=== PATIENT | male | born 1965 | race African-American/Black ===

== ENCOUNTER 2019-08-19 12:39 | Inpatient (IN) | payer OTHER ==
--- NOTE | 2019-08-19 13:19 | BHS.RME ---
Substance Use & Tx History - Substance Use History Alcohol Substance amount: 10-12 beers Frequency of use: Daily Substance route: Oral Date of Last Use: 08/19/19 Cocaine (Powder) Substance amount: 1-2 gram Frequency of use: Daily Substance route: Inhalation (ex: sniffing or snorting) Date of Last Use: 08/18/19 Physical/Psych/Mental Status - Behavior General Behavior: Increased activity (restlessness, agitation) Eye Contact: Normal - Cooperativeness Cooperativeness: Cooperative - Thinking Thought Processes: Tight, Logical, Goal Directed Thought content: Future oriented - Physical Health Problems Is patient presently having any pain?: No Does patient presently have any injuries (include location): No Does patient currently have a fever: No Is patient : No CIWA Nausea/Vomitin-No Nausea/No Vomiting Muscle Tremors: 1-None Visible, but [place] Anxiety: 3 Agitation: 3 Paroxysmal Sweats: 1-Minimal Palms Moist Orientation: 0-Oriented Tacttile Disturbances: 0-None Auditory Disturbances: 0-None Visual Disturbances: 0-None Headache: 2-Mild (drank earlier prior to coming in one nip not yet in full withdrawals) CIWA-Ar Total Score: 10
--- NOTE | 2019-08-19 14:40 | HP ---
CIWA Score Nausea/Vomitin-No Nausea/No Vomiting Muscle Tremors: 1-None Visible, but [place] Anxiety: 3 Agitation: 3 Paroxysmal Sweats: 1-Minimal Palms Moist Orientation: 0-Oriented Tacttile Disturbances: 0-None Auditory Disturbances: 0-None Visual Disturbances: 0-None Headache: 2-Mild (drank earlier prior to coming in one nip not yet in full withdrawals) CIWA-Ar Total Score: 10 - Admission Criteria [facility]ASAS Guidelines: Admission for Medically Managed Detox: Requires at least one of the followin. CIWA greater than 12 2. Seizures within the past 24 hours 3. Delirium tremens within the past 24 hours 4. Hallucinations within the past 24 hours 5. Acute intervention needed for co occurring medical disorder 6. Acute intervention needed for co occurring psychiatric disorder 7. Severe withdrawal that cannot be handled at a lower level of care (continued vomiting, continued diarrhea, abnormal vital signs) requiring intravenous medication and/or fluids 8. Admitting History and Physical - Admission Chief Complaint: Mr. Kenny presents to [facility] requesting admission to detox from alcohol and cocaine use. History of Present Illness: Mr. Kenny presents to [facility] requesting admission to detox from alcohol and cocaine use. This is his first time at [facility]. He was last in detox at [facility]. He was then abstinent for 2 mos and relapsed. PMH: low calcium, HLD. PSH: none Psych: biplar, depression, on seroquel SOC: lives in [place], has support and family wants him to go to [facility] Legal:none pending Substance use history Alcohol: 10-12 beers of 24 ounce each day, Began at the age of 89y. Last drink: a nip today. No hx of seiuzre. Has had a blackout x2, last was one month ago. 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 last use yesterday. History Source: Patient Limitations to Obtaining History: No Limitations Admission ROS [facility] - HPI Exam Limitations: No Limitations - Ebola screening Have you traveled outside of the country in the last 21 days: No Have you had contact with anyone from an Ebola affected area: No Have you been sick,other than usual withdrawal symptoms: No Do you have a fever: No - Review of Systems Constitutional: Chills EENT: reports: No Symptoms Reported Respiratory: reports: No Symptoms reported Cardiac: reports: No Symptoms Reported GI: reports: Nausea Musculoskeletal: reports: Joint Pain Integumentary: reports: No Symptoms Reported Neuro: reports: Headache Endocrine: reports: No Symptoms Reported Hematology: reports: No Symptoms Reported Psychiatric: reports: Depressed Patient History - Smoking Cessation Smoking history: Current every day smoker Have you smoked in the past 12 months: Yes Aproximately how many cigarettes per day: 5 Hx Chewing Tobacco Use: No Initiated information on smoking cessation: Yes 'Breaking Loose' booklet given: 08/19/19 - Substances abused Alcohol Substance route: Oral Amount used: 10-12 beers 24 ounce each Age of first use: 18 Date of last use: 08/19/19 Cocaine Substance route: Inhalation Amount used: 1-2 grams Age of first use: 40 Date of last use: 08/18/19 Admission Physical Exam [facility] Physical General Appearance: Yes: Mild Distress HEENTM: Yes: Hearing grossly Normal, Normocephalic Respiratory: Yes: Lungs Clear Neck: Yes: Within Normal Limits Breast: Yes: Breast Exam Deferred Cardiology: Yes: Regular Rate, S1, S2 Abdominal: Yes: Non Tender, Soft, Decreased BS, Protuberent Genitourinary: Yes: Other (deferred) Back: Yes: Normal Inspection Musculoskeletal: Yes: Within Normal Limits Extremities: Yes: Within Normal Limits Neurological: Yes: Alert Integumentary: Yes: Within Normal Limits - Diagnostic (1) Alcohol dependence with withdrawal, uncomplicated Current Visit: Yes Status: Acute (2) Cocaine abuse Current Visit: Yes Status: Acute (3) Nicotine dependence Current Visit: Yes Status: Acute (4) Hyperlipidemia Current Visit: Yes Status: Acute Cleared for Admission [facility] - Detox or Rehab [facility] Level of Care: Medically Managed Detox Regimen/Protocol: Librium Breathalyzer - Breathalyzer Breathalyzer: 0 Urine Drug Screen - Test Device Lot number: [id number] Expiration date: 01/31/21 - Control Is test valid?: Yes - Results Drug screen NEGATIVE: Yes Inpatient Rehab Admission - Rehab Decision to Admit Inpatient rehab admission?: No
[2019-08-19] MEDS ORDERED: MENTHOL/PHENOL 1 EACH UD MM PRN (14:44)
[2019-08-19] MEDS ORDERED: BISMUTH SUBSALICYLATE 524 MG/30 ML UD PO PRN (14:44)
[2019-08-19] MEDS ORDERED: MAGNESIUM HYDROX 2400MG/30ML ORAL SUSPENSION 30 ML CUP PO PRN (14:44)
[2019-08-19] MEDS ORDERED: NICOTINE POLACRILEX 2 MG GUM BUC PRN (14:44)
[2019-08-19] MEDS ORDERED: ONDANSETRON *ODT* 4 MG TABLET SL ONE (14:44)
[2019-08-19] MEDS ORDERED: MAG HYDROX/AL HYDROX/SIMETH 30 ML UNIT-DOSE CUP PO PRN (14:44)
[2019-08-19] MEDS ORDERED: ACETAMINOPHEN 325 MG TABLET (FP) PO PRN ×2 (14:44)
[2019-08-19] MEDS ORDERED: chlordiazePOXIDE HCL 25 MG CAPSULE PO PRN (14:44)
[2019-08-19] MEDS ORDERED: MAGNESIUM CITRATE 300 ML BOTTLE PO PRN (14:44)
[2019-08-19] MEDS ORDERED: METHOCARBAMOL 500 MG TABLET PO PRN (14:44)
[2019-08-19] MEDS ORDERED: IBUPROFEN 400 MG TABLET (FP) PO PRN (14:44)
[2019-08-19] MEDS ORDERED: VITAMINS A AND D TOPICAL OINTMENT 60 GM TUBE TP PRN (14:49)
[2019-08-19 15:18] VITALS: BMI 35.5
[2019-08-19] MEDS: NICOTINE 7 MG/24 HOURS TOPICAL PATCH TD SCH (16:38)
[2019-08-19] MEDS: chlordiazePOXIDE HCL 25 MG CAPSULE PO SCH ×2 (16:39→22:44)
--- NOTE | 2019-08-19 17:47 | CONSULT ---
[facility] Psychiatric Consult - Data Date of interview: 08/19/19 Admission source: [facility] Identifying data: First visit to [facility] and admission to [address] [place] [address] for this 54 y/o AA male self-referred for detoxification treatment. LUCERO issues : alcohol + nicotine + cocaine. Patient is single, a father of one (daughter), domiciled (lives with his biological mother), unemployed and supported on SSI benefits. Substance Abuse History: Discussed with the patient in this interview. LUCERO profile as follows : Smoking history: Current every day smoker. Have you smoked in the past 12 months: Yes. Aproximately how many cigarettes per day: 5. Hx Chewing Tobacco Use: No. Initiated information on smoking cessation: Yes. 'Breaking Loose' booklet given: 08/19/19. - Substances abused. Alcohol. Substance route: Oral. Amount used: 10-12 beers 24 ounce each. Age of first use: 18. Date of last use: 08/19/19. Cocaine. Substance route: Inhalation. Amount used: 1-2 grams. Age of first use: 40. Date of last use: 08/18/19 Medical History: Medical history is remarkable for obesity and dyslipidemia. Psychiatric History: Patient endorses a history of multiple psychiatric hospitalizations ([facility], [facility], [facility], [facility]). Most recent hospitalization ([facility]) occurred 2-3 months ago, as per self-r eport. Mr Kenny has reportedly been diagnosed with Bipolar Disorder. He sees a psychiatrist for medication management at the [facility] in [place], [place]. Patient indicates current maintenance with seroquel 200 mg/am + 400 mg/hs (confirmed by pharmacist at [facility], contacted by this chart writer, at [phone] : refills were picked up on 08/17/19). History of a suicide attempt via deliberately throwing self down a flight of stairs (2013). Physical/Sexual Abuse/Trauma History: Patient denies history of abuse. Additional Comment: Negative toxicology. Mental Status Exam - Mental Status Exam Alert and Oriented to: Time, Place, Person Cognitive Function: Good Patient Appearance: Well Groomed (obese) Mood: Withdrawn, Anxious, Hopeful Affect: Appropriate, Normal Range Patient Behavior: Fatigued, Appropriate, Cooperative Speech Pattern: Clear, Appropriate Voice Loudness: Normal Thought Process: Intact, Goal Oriented Thought Disorder: Not Present Hallucinations: Denies Suicidal Ideation: Denies Homicidal Ideation: Denies Insight/Judgement: Fair Sleep: Poorly, Difficulty falling asleep Appetite: Good Gait/Station: Normal Psychiatric Findings - Problem List ([place] 1, 2,3) (1) Alcohol dependence with withdrawal, uncomplicated Current Visit: Yes Status: Acute (2) Cocaine abuse Current Visit: Yes Status: Chronic (3) Nicotine dependence Current Visit: Yes Status: Chronic (4) Substance induced mood disorder Current Visit: Yes Status: Chronic (5) History of bipolar disorder Current Visit: Yes Status: Chronic Comment: As per self-report. On medications + follow-up at [facility] in [place], [place]. (6) Insomnia Current Visit: Yes Status: Chronic - Initial Treatment Plan Initial Treatment Plan: Psychoeducation. Sleep hygiene. Detoxification in progress. AA meetings. Groups. Patient is felt to be a good and reliable historian. He indicates that he has missed his morning dose of seroquel 200 mg (leaving home hastily for [facility]) and he insists on resuming his bedtime dose of 400 mg (verified with pharmacist at [facility]. See Psychiatric History section for details). Support. Side effects/benefits of seroquel are discussed with patient. " I have been on seroquel for many years." Seroquel 400 mg po hs. Ordered. Morning dose, 200 mg/daily, is temporarily held until observation in AM (to be resumed, at the discretion of covering psychiatrist, if no sedation/hypotension or unsteady gait). Mr Kenny is in agreement with this plan of care. Gave his consent (verbal) to this client relationship consultant. Observation.
[2019-08-19] MEDS: hydrOXYzine PAMOATE 25 MG CAPSULE (FP) PO SCH ×2 (17:50→22:43)
[2019-08-19 18:09] LABS: HEMATOCRIT 42.3 % (35.4-49); HEMOGLOBIN 13.9 GM/dL (11.7-16.9); MCH 26.9 pg (25.7-33.7); MCHC 32.8 g/dl (32.0-35.9); MEAN CELL VOLUME 81.9 fl (80-96); MEAN PLT VOLUME 9.8 fl (7.5-11.1); PLATELET COUNT 199 K/MM3 (134-434); RBC 5.17 M/mm3 (4.00-5.60); RDW 14.8 % (11.9-15.9); WHITE BLOOD COUNT 7.2 K/mm3 (4.0-10.0)
[2019-08-19 18:21] LABS: ALBUMIN 3.8 g/dl (3.4-5.0); BILIRUBIN,TOTAL 0.2 mg/dL (0.2-1); BLOOD UREA NITROGEN 13.7 mg/dL (7-18); CREATININE 1.2 mg/dL (0.55-1.3); POTASSIUM 3.8 mmol/L (3.5-5.1); TOT PROT 7.6 g/dl (6.4-8.2)
[2019-08-19] MEDS: MELATONIN 5 MG TABLETS PO SCH (22:43)
[2019-08-19] MEDS: QUEtiapine FUMARATE 400 MG TABLET PO SCH (22:43)
[2019-08-19] MEDS: THIAMINE HCL 100 MG TABLET (FP) PO SCH (22:44)
[2019-08-20] MEDS: hydrOXYzine PAMOATE 25 MG CAPSULE (FP) PO SCH ×5 (06:43→22:21)
[2019-08-20] MEDS: chlordiazePOXIDE HCL 25 MG CAPSULE PO SCH ×4 (06:43→22:18)
--- NOTE | 2019-08-20 10:23 | EKG ---
Test Reason : Blood Pressure : / mmHG Vent. Rate : 072 BPM Atrial Rate : 072 BPM P-R Int : 228 ms QRS Dur : 090 ms QT Int : 390 ms P-R-T Axes : 073 047 056 degrees QTc Int : 427 ms SINUS RHYTHM WITH 1ST DEGREE A-V BLOCK POSSIBLE LEFT ATRIAL ENLARGEMENT SEPTAL INFARCT , AGE UNDETERMINED ABNORMAL ECG NO PREVIOUS ECGS AVAILABLE Confirmed by BENJI DURAN MD ([id number]) on 08/20/2019 10:23:01 AM Referred By: Confirmed By:BENJI DURAN MD
[2019-08-20] MEDS: PRENATAL VITAMINS W/ FOLIC ACID TABLET (FP) PO SCH (10:28)
[2019-08-20] MEDS: NICOTINE 7 MG/24 HOURS TOPICAL PATCH TD SCH (10:29)
--- NOTE | 2019-08-20 10:59 | PN ---
S CIWA - CIWA Score Nausea/Vomitin-No Nausea/No Vomiting Muscle Tremors: 2 Anxiety: 2 Agitation: 2 Paroxysmal Sweats: 2 Orientation: 0-Oriented Tacttile Disturbances: 0-None Auditory Disturbances: 0-None Visual Disturbances: 0-None Headache: 0-None Present CIWA-Ar Total Score: 8 BHS Progress Note (SOAP) Subjective: sweats irritable agitation I need my morning seroquel Objective: 08/20/19 10:56 Vital Signs Temperature 97.1 F L 08/19/19 15:13 Pulse Rate 104 H 08/20/19 09:13 Respiratory Rate 18 08/20/19 09:13 Blood Pressure 121/78 08/20/19 09:13 O2 Sat by Pulse Oximetry (%) 98 08/19/19 08:29 Laboratory Tests 08/19/19 08/19/19 15:20 15:20 WBC 7.2 RBC 5.17 Hgb 13.9 Hct 42.3 MCV 81.9 MCH 26.9 MCHC 32.8 RDW 14.8 Plt Count 199 MPV 9.8 Sodium 141 Potassium 3.8 Chloride 106 Carbon Dioxide 29 Anion Gap 7 L BUN 13.7 Creatinine 1.2 Est GFR (CKD-EPI)AfAm 78.98 Est GFR (CKD-EPI)NonAf 68.14 Random Glucose 92 Calcium 9.0 Total Bilirubin 0.2 AST 12 L ALT 21 Alkaline Phosphatase 91 Total Protein 7.6 Albumin 3.8 aaox3 ambulating no acute distress Assessment: 08/20/19 10:57 withdrawals Plan: continue detox increase fluids psych ordered
--- NOTE | 2019-08-20 12:29 | PN ---
CHRIS Progress Note Note: Psychiatric nurse practitioner note: Patient seen by Dr. West on 08/18/18. Dr. West note read and appreciated. Patient is prescribed seroquel 200mg daily + 400mg HS. Morning dose was held due to risk of oversedation. Patient observed ambulating on the unit. No signs of sedation. Seroquel 200mg daily ordered.
--- NOTE | 2019-08-20 12:43 | PN ---
Psychiatric Progress Note Vital Signs: Vital Signs Period Temp Pulse Resp BP Sys/Mcmillan Pulse Ox Last 24 Hr 97.1 F 78-104 12- 121-152/78-96 Date of Session: 08/20/19 Chief Complaint:: " I didn't get my seroquel morning dose." HPI: Patient admitted to for alcohol + nicotine + cocaine. Consultation ordered due to request for seroquel morning dose. ROS: Patient is alert + oriented X3 but slightly irritable. Current Medications: Active Medications Generic Name Dose Route Start Last Admin Trade Name Freq PRN Reason Stop Dose Admin Acetaminophen 650 mg 08/19/19 14:44 Tylenol - PO Q6H PRN PAIN LEVEL 4 - 6 Acetaminophen 650 mg 08/19/19 14:44 Tylenol - PO Q6H PRN FEVER Al Hydroxide/Mg Hydroxide 30 ml 08/19/19 14:44 Mylanta Oral Suspension - PO Q6H PRN DYSPEPSIA Bismuth Subsalicylate 524 mg 08/19/19 14:44 Pepto-Bismol - PO Q1H PRN DIARRHEA Chlordiazepoxide HCl 50 mg 08/19/19 17:00 08/20/19 10:28 Librium - PO 08/20/19 23:01 50 mg [id number] GEMMA Administration Chlordiazepoxide HCl 25 mg 08/21/19 05:00 Librium - PO 08/21/19 23:01 [id number] GEMMA Chlordiazepoxide HCl 25 mg 08/19/19 14:44 Librium - PO 08/21/19 23:59 Q4H PRN WITHDRAWAL(CONT SUBST) Chlordiazepoxide HCl 10 mg 08/22/19 05:00 Librium - PO 08/22/19 23:01 [id number] GEMMA Chlordiazepoxide HCl 10 mg 08/23/19 05:00 Librium - PO 08/23/19 17:01 Q12H GEMMA Chlordiazepoxide HCl 10 mg 08/22/19 00:00 Librium - PO 08/23/19 00:00 Q4H PRN WITHDRAWAL(CONT SUBST) Chlordiazepoxide HCl 10 mg 08/24/19 05:00 Librium - PO 08/24/19 05:01 ONCE@0500 ONE Eucalyptus/Menthol/Phenol/Sorbitol 1 each 08/19/19 14:44 Cepastat Lozenge - MM 08/25/19 14:45 Q4H PRN SORE THROAT Hydroxyzine Pamoate 25 mg 08/19/19 18:00 08/20/19 10:31 Vistaril - PO 08/25/19 14:44 Not Given Q4HWA GEMMA Ibuprofen 400 mg 08/19/19 14:44 Motrin - PO Q6H PRN PAIN LEVEL 1 - 3 Magnesium Citrate 300 ml 08/19/19 14:44 Citroma - PO Q48H PRN CONSTIPATION Magnesium Hydroxide 30 ml 08/19/19 14:44 Milk Of Magnesia - PO PRN PRN CONSTIPATION Melatonin 5 mg 08/19/19 22:00 08/19/19 22:43 Melatonin PO 5 mg HS GEMMA Administration Methocarbamol 500 mg 08/19/19 14:44 Robaxin - PO 08/25/19 14:45 Q6H PRN MUSCLE SPASMS Nicotine 7 mg 08/19/19 14:45 08/20/19 10:29 Nicoderm Patch - TD Not Given DAILY GEMMA Nicotine Polacrilex 2 mg 08/19/19 14:44 Nicorette Gum - BUC Q2H PRN NICOTINE REPLACEMENT RX Multivit/Folic Acid/Iron 1 tab 08/20/19 10:00 08/20/19 10:28 Vitamins (Sjr) - PO 1 tab DAILY [facility] Administration Quetiapine Fumarate 400 mg 08/19/19 22:00 08/19/19 22:43 Seroquel - PO 400 mg HS GEMMA Administration Quetiapine Fumarate 200 mg 08/20/19 11:30 Seroquel - PO DAILY GEMMA Thiamine HCl 100 mg 08/19/19 22:00 08/19/19 22:44 Vitamin B1 - PO 100 mg HS [facility] Administration Vitamin A/Vitamin D 1 applic 08/19/19 14:49 Vitamin A & D Top Oint - TP Q6HPO PRN DRY SKIN Medication(s) Change(s): Yes. Will add Seroquel 200mg daily. Current Side Effect: No Lab tests ordered: No Provider note:: Patient seen by Dr. West on 08/18/18. Dr. West note read and appreciated. Patient is prescribed seroquel 200mg daily + 400mg HS by his outpatient psychiatrist. Morning dose was held due to risk of oversedation. Patient observed ambulating on the unit. No signs of sedation. Seroquel 200mg daily ordered. Total face to face time:: 15 Mental Status Exam - Mental Status Exam Alert and Oriented to: Time, Place, Person Cognitive Function: Good Patient Appearance: Well Groomed Mood: Irritable (irritable but in control while speaking to keno writer/runner. ) Affect: Mood Congruent Patient Behavior: Cooperative Speech Pattern: Appropriate Voice Loudness: Normal Thought Process: Intact, Goal Oriented Thought Disorder: Not Present Hallucinations: Denies Suicidal Ideation: Denies Homicidal Ideation: Denies Insight/Judgement: Poor Sleep: Fair Appetite: Fair Muscle strength/Tone: Normal Gait/Station: Normal Psychiatric Treatment Plan - Problem List (1) Alcohol dependence with withdrawal, uncomplicated Current Visit: Yes (2) Cocaine abuse Current Visit: Yes (3) History of bipolar disorder Current Visit: Yes Comment: As per self-report. On medications + follow-up at [facility] in [place], [place]. (4) Insomnia Current Visit: Yes (5) Nicotine dependence Current Visit: Yes (6) Substance induced mood disorder Current Visit: Yes
[2019-08-20] MEDS: QUEtiapine FUMARATE 100 MG TABLET (FP) PO SCH (13:35)
[2019-08-20] MEDS: QUEtiapine FUMARATE 400 MG TABLET PO SCH (22:18)
[2019-08-20] MEDS: THIAMINE HCL 100 MG TABLET (FP) PO SCH (22:18)
[2019-08-20] MEDS: MELATONIN 5 MG TABLETS PO SCH (22:18)
[2019-08-21] MEDS: hydrOXYzine PAMOATE 25 MG CAPSULE (FP) PO SCH ×5 (06:23→21:28)
[2019-08-21] MEDS: chlordiazePOXIDE HCL 25 MG CAPSULE PO SCH ×4 (06:23→22:20)
[2019-08-21] MEDS: PRENATAL VITAMINS W/ FOLIC ACID TABLET (FP) PO SCH (10:55)
[2019-08-21] MEDS: QUEtiapine FUMARATE 100 MG TABLET (FP) PO SCH (10:56)
[2019-08-21] MEDS: NICOTINE 7 MG/24 HOURS TOPICAL PATCH TD SCH (10:57)
--- NOTE | 2019-08-21 15:11 | PN ---
[facility] CIWA - CIWA Score Nausea/Vomitin-Mild Nausea/No Vomiting Muscle Tremors: 2 Anxiety: 2 Agitation: 2 Paroxysmal Sweats: No Perspiration Orientation: 0-Oriented Tacttile Disturbances: 1-Very Mild Itch/Numbness Auditory Disturbances: 0-None Visual Disturbances: 0-None Headache: 1-Very Mild CIWA-Ar Total Score: 9 S Progress Note (SOAP) Subjective: alert,irritable,anxious,interrupted sleep,tremor Objective: 08/21/19 15:10 Vital Signs Temperature 98 F 08/21/19 12:35 Pulse Rate 109 H 08/21/19 12:35 Respiratory Rate 18 08/21/19 12:35 Blood Pressure 125/67 08/21/19 12:35 O2 Sat by Pulse Oximetry (%) 96 08/21/19 12:35 08/21/19 15:10 Laboratory Last Values WBC 7.2 K/mm3 (4.0-10.0) 08/19/19 15:20 RBC 5.17 M/mm3 (4.00-5.60) 08/19/19 15:20 Hgb 13.9 GM/dL (11.7-16.9) 08/19/19 15:20 Hct 42.3 % (35.4-49) 08/19/19 15:20 MCV 81.9 fl (80-96) 08/19/19 15:20 MCH 26.9 pg (25.7-33.7) 08/19/19 15:20 MCHC 32.8 g/dl (32.0-35.9) 08/19/19 15:20 RDW 14.8 % (11.9-15.9) 08/19/19 15:20 Plt Count 199 K/MM3 (134-434) 08/19/19 15:20 MPV 9.8 fl (7.5-11.1) 08/19/19 15:20 Sodium 141 mmol/L (136-145) 08/19/19 15:20 Potassium 3.8 mmol/L (3.5-5.1) 08/19/19 15:20 Chloride 106 mmol/L (98-107) 08/19/19 15:20 Carbon Dioxide 29 mmol/L (21-32) 08/19/19 15:20 Anion Gap 7 MMOL/L (8-16) L 08/19/19 15:20 BUN 13.7 mg/dL (7-18) 08/19/19 15:20 Creatinine 1.2 mg/dL (0.55-1.3) 08/19/19 15:20 Est GFR (CKD-EPI)AfAm 78.98 08/19/19 15:20 Est GFR (CKD-EPI)NonAf 68.14 08/19/19 15:20 Random Glucose 92 mg/dL (74-106) 08/19/19 15:20 Calcium 9.0 mg/dL (8.5-10.1) 08/19/19 15:20 Total Bilirubin 0.2 mg/dL (0.2-1) 08/19/19 15:20 AST 12 U/L (15-37) L 08/19/19 15:20 ALT 21 U/L (13-61) 08/19/19 15:20 Alkaline Phosphatase 91 U/L (45-117) 08/19/19 15:20 Total Protein 7.6 g/dl (6.4-8.2) 08/19/19 15:20 Albumin 3.8 g/dl (3.4-5.0) 08/19/19 15:20 RPR Titer Nonreactive (NONREACTIVE) 08/19/19 15:20 HIV Ag/Ab Combo Qual Negative (NEGATIVE) 08/20/19 07:30 Assessment: 08/21/19 15:11 withdrawal symptom Plan: continue detox librium regimen
[2019-08-21] MEDS: THIAMINE HCL 100 MG TABLET (FP) PO SCH (21:28)
[2019-08-21] MEDS: MELATONIN 5 MG TABLETS PO SCH (21:28)
[2019-08-21] MEDS: QUEtiapine FUMARATE 400 MG TABLET PO SCH (21:28)
[2019-08-22] MEDS ORDERED: chlordiazePOXIDE HCL 10 MG CAPSULE PO PRN
[2019-08-22] MEDS: chlordiazePOXIDE HCL 10 MG CAPSULE PO SCH ×4 (05:52→22:12)
[2019-08-22] MEDS: hydrOXYzine PAMOATE 25 MG CAPSULE (FP) PO SCH ×5 (05:52→22:12)
[2019-08-22] MEDS: NICOTINE 7 MG/24 HOURS TOPICAL PATCH TD SCH (10:46)
[2019-08-22] MEDS: PRENATAL VITAMINS W/ FOLIC ACID TABLET (FP) PO SCH (10:46)
[2019-08-22] MEDS: QUEtiapine FUMARATE 100 MG TABLET (FP) PO SCH (10:47)
--- NOTE | 2019-08-22 16:53 | PN ---
S CIWA - CIWA Score Nausea/Vomitin-No Nausea/No Vomiting Muscle Tremors: 3 Anxiety: 2 Agitation: 1-Slight > Activity Paroxysmal Sweats: 3 Orientation: 2-Disoriented Date<2 days Tacttile Disturbances: 1-Very Mild Itch/Numbness Auditory Disturbances: 0-None Visual Disturbances: 0-None Headache: 2-Mild CIWA-Ar Total Score: 14 S Progress Note (SOAP) Subjective: Tremors, Diarrhea, Chills, H/A. Objective: PATIENT A & O X 2 (UNCERTAIN ABOUT CURRENT DAY/ DATE). PATIENT OBSERVED AMBULATING ON DETOX UNIT UNASSISTED. IN NO ACUTE DISTRESS. 08/22/19 16:52 Vital Signs Temperature 97.8 F 08/22/19 08:50 Pulse Rate 103 H 08/22/19 08:50 Respiratory Rate 18 08/22/19 08:50 Blood Pressure 127/91 08/22/19 08:50 O2 Sat by Pulse Oximetry (%) 97 08/22/19 05:44 Laboratory Tests 08/19/19 08/19/19 08/19/19 15:20 15:20 15:20 WBC 7.2 RBC 5.17 Hgb 13.9 Hct 42.3 MCV 81.9 MCH 26.9 MCHC 32.8 RDW 14.8 Plt Count 199 MPV 9.8 Sodium 141 Potassium 3.8 Chloride 106 Carbon Dioxide 29 Anion Gap 7 L BUN 13.7 Creatinine 1.2 Est GFR (CKD-EPI)AfAm 78.98 Est GFR (CKD-EPI)NonAf 68.14 Random Glucose 92 Calcium 9.0 Total Bilirubin 0.2 AST 12 L ALT 21 Alkaline Phosphatase 91 Total Protein 7.6 Albumin 3.8 RPR Titer Nonreactive HIV Ag/Ab Combo Qual 08/20/19 07:30 WBC RBC Hgb Hct MCV MCH MCHC RDW Plt Count MPV Sodium Potassium Chloride Carbon Dioxide Anion Gap BUN Creatinine Est GFR (CKD-EPI)AfAm Est GFR (CKD-EPI)NonAf Random Glucose Calcium Total Bilirubin AST ALT Alkaline Phosphatase Total Protein Albumin RPR Titer HIV Ag/Ab Combo Qual Negative LABS NOTED. Assessment: 08/22/19 16:53 WITHDRAWAL SYMPTOMS. Plan: CONTINUE DETOX.
[2019-08-22] MEDS: MELATONIN 5 MG TABLETS PO SCH (22:12)
[2019-08-22] MEDS: QUEtiapine FUMARATE 400 MG TABLET PO SCH (22:12)
[2019-08-22] MEDS: THIAMINE HCL 100 MG TABLET (FP) PO SCH (22:12)
[2019-08-23] MEDS: chlordiazePOXIDE HCL 10 MG CAPSULE PO SCH ×2 (06:20→17:50)
[2019-08-23] MEDS: hydrOXYzine PAMOATE 25 MG CAPSULE (FP) PO SCH ×5 (06:20→22:12)
[2019-08-23] MEDS: NICOTINE 7 MG/24 HOURS TOPICAL PATCH TD SCH (10:07)
[2019-08-23] MEDS: PRENATAL VITAMINS W/ FOLIC ACID TABLET (FP) PO SCH (10:07)
[2019-08-23] MEDS: QUEtiapine FUMARATE 100 MG TABLET (FP) PO SCH (10:07)
--- NOTE | 2019-08-23 12:09 | PN ---
[facility] CIWA - CIWA Score Nausea/Vomitin-No Nausea/No Vomiting Muscle Tremors: 2 Anxiety: 3 Agitation: 1-Slight > Activity Paroxysmal Sweats: 3 Orientation: 0-Oriented Tacttile Disturbances: 0-None Auditory Disturbances: 0-None Visual Disturbances: 0-None Headache: 1-Very Mild CIWA-Ar Total Score: 10 S Progress Note (SOAP) Subjective: c/o headache, shakes, anxiety, and sweats. Objective: 08/23/19 12:08 Vital Signs 08/23/19 08/23/19 05:10 09:18 Temperature 98 F 97.4 F L Pulse Rate 89 119 H Respiratory 20 20 Rate Blood Pressure 136/77 129/90 O2 Sat by Pulse 95 Oximetry (%) Laboratory Last Values WBC 7.2 K/mm3 (4.0-10.0) 08/19/19 15:20 RBC 5.17 M/mm3 (4.00-5.60) 08/19/19 15:20 Hgb 13.9 GM/dL (11.7-16.9) 08/19/19 15:20 Hct 42.3 % (35.4-49) 08/19/19 15:20 MCV 81.9 fl (80-96) 08/19/19 15:20 MCH 26.9 pg (25.7-33.7) 08/19/19 15:20 MCHC 32.8 g/dl (32.0-35.9) 08/19/19 15:20 RDW 14.8 % (11.9-15.9) 08/19/19 15:20 Plt Count 199 K/MM3 (134-434) 08/19/19 15:20 MPV 9.8 fl (7.5-11.1) 08/19/19 15:20 Sodium 141 mmol/L (136-145) 08/19/19 15:20 Potassium 3.8 mmol/L (3.5-5.1) 08/19/19 15:20 Chloride 106 mmol/L (98-107) 08/19/19 15:20 Carbon Dioxide 29 mmol/L (21-32) 08/19/19 15:20 Anion Gap 7 MMOL/L (8-16) L 08/19/19 15:20 BUN 13.7 mg/dL (7-18) 08/19/19 15:20 Creatinine 1.2 mg/dL (0.55-1.3) 08/19/19 15:20 Est GFR (CKD-EPI)AfAm 78.98 08/19/19 15:20 Est GFR (CKD-EPI)NonAf 68.14 08/19/19 15:20 Random Glucose 92 mg/dL (74-106) 08/19/19 15:20 Calcium 9.0 mg/dL (8.5-10.1) 08/19/19 15:20 Total Bilirubin 0.2 mg/dL (0.2-1) 08/19/19 15:20 AST 12 U/L (15-37) L 08/19/19 15:20 ALT 21 U/L (13-61) 08/19/19 15:20 Alkaline Phosphatase 91 U/L (45-117) 08/19/19 15:20 Total Protein 7.6 g/dl (6.4-8.2) 08/19/19 15:20 Albumin 3.8 g/dl (3.4-5.0) 08/19/19 15:20 RPR Titer Nonreactive (NONREACTIVE) 08/19/19 15:20 HIV Ag/Ab Combo Qual Negative (NEGATIVE) 08/20/19 07:30 Labs noted. Assessment: 08/23/19 12:08 AOX3, in no acute respiratory distress. Full ROM, ambulating in the unit. Withdrawal symptoms. Plan: continue detox.
[2019-08-23] MEDS: THIAMINE HCL 100 MG TABLET (FP) PO SCH (22:12)
[2019-08-23] MEDS: MELATONIN 5 MG TABLETS PO SCH (22:12)
[2019-08-23] MEDS: QUEtiapine FUMARATE 400 MG TABLET PO SCH (22:12)
[2019-08-24] MEDS ORDERED: chlordiazePOXIDE HCL 10 MG CAPSULE PO ONE (05:00)
[2019-08-24] MEDS: hydrOXYzine PAMOATE 25 MG CAPSULE (FP) PO SCH ×2 (05:17→10:18)
--- NOTE | 2019-08-24 08:51 | DS ---
[facility] Detox Discharge Summary Admission Date: 08/19/19 Discharge Date: 08/24/19 - History Present History: Alcohol Dependence, Cocaine Dependence - Physical Exam Results Vital Signs: Vital Signs Temperature 97.7 F 08/24/19 06:07 Pulse Rate 102 H 08/24/19 06:07 Respiratory Rate 08/24/19 06:07 Blood Pressure 145/87 08/24/19 06:07 O2 Sat by Pulse Oximetry (%) 96 08/24/19 06:07 Pertinent Admission Physical Exam Findings: Vital Signs Temperature 97.7 F 08/24/19 06:07 Pulse Rate 102 H 08/24/19 06:07 Respiratory Rate 08/24/19 06:07 Blood Pressure 145/87 08/24/19 06:07 O2 Sat by Pulse Oximetry (%) 96 08/24/19 06:07 Laboratory Tests 08/19/19 08/19/19 08/19/19 15:20 15:20 15:20 WBC 7.2 RBC 5.17 Hgb 13.9 Hct 42.3 MCV 81.9 MCH 26.9 MCHC 32.8 RDW 14.8 Plt Count 199 MPV 9.8 Sodium 141 Potassium 3.8 Chloride 106 Carbon Dioxide 29 Anion Gap 7 L BUN 13.7 Creatinine 1.2 Est GFR (CKD-EPI)AfAm 78.98 Est GFR (CKD-EPI)NonAf 68.14 Random Glucose 92 Calcium 9.0 Total Bilirubin 0.2 AST 12 L ALT 21 Alkaline Phosphatase 91 Total Protein 7.6 Albumin 3.8 RPR Titer Nonreactive HIV Ag/Ab Combo Qual 08/20/19 07:30 WBC RBC Hgb Hct MCV MCH MCHC RDW Plt Count MPV Sodium Potassium Chloride Carbon Dioxide Anion Gap BUN Creatinine Est GFR (CKD-EPI)AfAm Est GFR (CKD-EPI)NonAf Random Glucose Calcium Total Bilirubin AST ALT Alkaline Phosphatase Total Protein Albumin RPR Titer HIV Ag/Ab Combo Qual Negative aaox3 ambulating no acute distress - Treatment Hospital Course: Detox Protocol Followed, Detoxed Safely, Responded well, Discharged Condition Good, Rehab Referral Accepted - Medication Discharge Medications: Ambulatory Orders Atorvastatin Ca [Lipitor] 10 mg PO HS 08/19/19 Cholecalciferol (Vitamin D3) [Vitamin D3] 3,000 unit PO DAILY 08/19/19 Quetiapine Fumarate [Seroquel -] 200 mg PO DAILY 08/19/19 Quetiapine Fumarate [Seroquel -] 400 mg PO HS 08/19/19 - Diagnosis (1) Alcohol dependence with withdrawal, uncomplicated Current Visit: Yes Status: Chronic (2) Hyperlipidemia Current Visit: Yes Status: Chronic Qualifiers: Hyperlipidemia type: unspecified Qualified Code(s): E78.5 - Hyperlipidemia, unspecified (3) Cocaine abuse Current Visit: Yes Status: Chronic (4) History of bipolar disorder Current Visit: Yes Status: Chronic (5) Insomnia Current Visit: Yes Status: Chronic (6) Nicotine dependence Current Visit: Yes Status: Chronic Qualifiers: Nicotine product type: cigarettes Substance use status: uncomplicated Qualified Code(s): F17.210 - Nicotine dependence, cigarettes, uncomplicated (7) Substance induced mood disorder Current Visit: Yes Status: Chronic - AMA Did Patient Leave Against Medical Advice: No
[2019-08-24] MEDS: PRENATAL VITAMINS W/ FOLIC ACID TABLET (FP) PO SCH (10:18)
[2019-08-24] MEDS: NICOTINE 7 MG/24 HOURS TOPICAL PATCH TD SCH (10:18)
[2019-08-24] MEDS: QUEtiapine FUMARATE 100 MG TABLET (FP) PO SCH (10:18)
[2019-08-24 10:28] VITALS: BP 141/82; PULSE 104; TEMP 98.2
== END 2019-08-24 13:15 | disposition home or self-care (01) | DRG 774 ==
LOC: YASAS 12:39 → Y6N 15:40
PROVIDERS: ADMIT Allergy & Immunology; ATTEND Allergy & Immunology
PROC: HZ2ZZZZ Detoxification Services for Substance Abuse Treatment (ICD-10-PCS; principal; 2019-08-19)
DX: F10.230 Alcohol dependence with withdrawal, uncomplicated (principal); F14.20 Cocaine dependence, uncomplicated; F17.210 Nicotine dependence, cigarettes, uncomplicated; F19.24 Other psychoactive substance dependence with psychoactive substance-induced mood disorder; F31.9 Bipolar disorder, unspecified; E78.5 Hyperlipidemia, unspecified; G47.00 Insomnia, unspecified; E66.9 Obesity, unspecified; Z68.35 Body mass index [BMI] 35.0-35.9, adult; Z56.0 Unemployment, unspecified; Z91.5 Personal history of self-harm
CPT/HCPCS: 36415; 80053; 85027; 86593; 87389; 93005; 93010; Q0162

== ENCOUNTER 2020-07-11 09:06 | Inpatient (IN) | payer OTHER ==
[2020-07-11 09:40] VITALS: BMI 35.5
[2020-07-11] MEDS ORDERED: MENTHOL/PHENOL 1 EACH UD MM PRN (10:08)
[2020-07-11] MEDS ORDERED: ACETAMINOPHEN 325 MG TABLET (FP) PO PRN ×2 (10:08)
[2020-07-11] MEDS ORDERED: MAG HYDROX/AL HYDROX/SIMETH 30 ML UNIT-DOSE CUP PO PRN (10:08)
[2020-07-11] MEDS ORDERED: METHOCARBAMOL 500 MG TABLET PO PRN (10:08)
[2020-07-11] MEDS ORDERED: NICOTINE POLACRILEX 2 MG GUM BUC PRN (10:08)
[2020-07-11] MEDS ORDERED: IBUPROFEN 400 MG TABLET (FP) PO PRN (10:08)
[2020-07-11] MEDS ORDERED: chlordiazePOXIDE HCL 25 MG CAPSULE PO PRN (10:08)
[2020-07-11] MEDS ORDERED: MAGNESIUM CITRATE 300 ML BOTTLE PO PRN (10:08)
[2020-07-11] MEDS ORDERED: MAGNESIUM HYDROX 2400MG/30ML ORAL SUSPENSION 30 ML CUP PO PRN (10:08)
[2020-07-11] MEDS ORDERED: ONDANSETRON *ODT* 4 MG TABLET SL PRN (10:08)
[2020-07-11] MEDS: PRENATAL VITAMINS W/ FOLIC ACID TABLET (FP) PO SCH (10:48)
[2020-07-11] MEDS: chlordiazePOXIDE HCL 25 MG CAPSULE PO SCH ×3 (10:48→23:00)
[2020-07-11 15:56] LABS: POTASSIUM 4.1 mmol/L (3.5-5.1)
[2020-07-11 15:58] LABS: CALCIUM 9.7 mg/dL (8.5-10.1)
[2020-07-11 15:59] LABS: ALBUMIN 4.4 g/dl (3.4-5.0); BLOOD UREA NITROGEN 9.7 mg/dL (7-18)
[2020-07-11 16:02] LABS: CREATININE 1.2 mg/dL (0.55-1.3)
[2020-07-11 16:04] LABS: BILIRUBIN,TOTAL 0.4 mg/dL (0.2-1); TOT PROT 8.8 g/dl (6.4-8.2)
[2020-07-11 16:08] LABS: HEMATOCRIT 44.9 % (35.4-49); MCH 27.5 pg (25.7-33.7); MCHC 33.4 g/dl (32.0-35.9); MEAN CELL VOLUME 82.3 fl (80-96); MEAN PLT VOLUME 9.6 fl (7.5-11.1); PLATELET COUNT 236 K/MM3 (134-434); RBC 5.45 M/mm3 (4.00-5.60); RDW 15.2 % (11.9-15.9); WHITE BLOOD COUNT 8.5 K/mm3 (4.0-10.0)
[2020-07-11 16:54] LABS: HIV INTERPRETATION NEGATIVE (NEGATIVE)
[2020-07-11] MEDS: THIAMINE HCL 100 MG TABLET (FP) PO SCH (23:01)
[2020-07-11] MEDS: QUEtiapine FUMARATE 400 MG TABLET PO SCH (23:01)
[2020-07-11] MEDS: MELATONIN 5 MG TABLETS PO SCH (23:01)
[2020-07-11] MEDS: ATORVASTATIN CA 10 MG TABLET (FP) PO SCH (23:02)
[2020-07-12] MEDS: hydrOXYzine PAMOATE 25 MG CAPSULE (FP) PO SCH ×7 (00:36→22:46)
[2020-07-12] MEDS: chlordiazePOXIDE HCL 25 MG CAPSULE PO SCH ×4 (05:51→22:23)
[2020-07-12] MEDS: PRENATAL VITAMINS W/ FOLIC ACID TABLET (FP) PO SCH (10:12)
[2020-07-12] MEDS: BISMUTH SUBSALICYLATE 524 MG/30 ML UD PO PRN (13:43)
[2020-07-12] MEDS: THIAMINE HCL 100 MG TABLET (FP) PO SCH (22:23)
[2020-07-12] MEDS: QUEtiapine FUMARATE 400 MG TABLET PO SCH (22:23)
[2020-07-12] MEDS: ATORVASTATIN CA 10 MG TABLET (FP) PO SCH (22:23)
[2020-07-12] MEDS: MELATONIN 5 MG TABLETS PO SCH (22:46)
[2020-07-13] MEDS: chlordiazePOXIDE HCL 25 MG CAPSULE PO SCH ×4 (05:39→22:50)
[2020-07-13] MEDS: hydrOXYzine PAMOATE 25 MG CAPSULE (FP) PO SCH ×6 (05:39→23:02)
[2020-07-13] MEDS: PRENATAL VITAMINS W/ FOLIC ACID TABLET (FP) PO SCH (10:13)
[2020-07-13] MEDS: BISMUTH SUBSALICYLATE 524 MG/30 ML UD PO PRN ×2 (13:10→17:56)
[2020-07-13] MEDS: THIAMINE HCL 100 MG TABLET (FP) PO SCH (22:49)
[2020-07-13] MEDS: ATORVASTATIN CA 10 MG TABLET (FP) PO SCH (22:49)
[2020-07-13] MEDS: QUEtiapine FUMARATE 400 MG TABLET PO SCH (22:49)
[2020-07-13] MEDS: MELATONIN 5 MG TABLETS PO SCH (23:02)
[2020-07-14] MEDS ORDERED: chlordiazePOXIDE HCL 10 MG CAPSULE PO PRN
[2020-07-14] MEDS: chlordiazePOXIDE HCL 10 MG CAPSULE PO SCH ×4 (05:32→22:50)
[2020-07-14] MEDS: hydrOXYzine PAMOATE 25 MG CAPSULE (FP) PO SCH ×5 (05:32→23:40)
[2020-07-14] MEDS: PRENATAL VITAMINS W/ FOLIC ACID TABLET (FP) PO SCH (10:19)
[2020-07-14] MEDS: BISMUTH SUBSALICYLATE 524 MG/30 ML UD PO PRN ×3 (10:22→18:13)
[2020-07-14] MEDS: ATORVASTATIN CA 10 MG TABLET (FP) PO SCH (22:50)
[2020-07-14] MEDS: THIAMINE HCL 100 MG TABLET (FP) PO SCH (22:50)
[2020-07-14] MEDS: QUEtiapine FUMARATE 400 MG TABLET PO SCH (22:50)
[2020-07-14] MEDS: MELATONIN 5 MG TABLETS PO SCH (23:40)
[2020-07-15] MEDS: hydrOXYzine PAMOATE 25 MG CAPSULE (FP) PO SCH ×5 (06:14→22:19)
[2020-07-15] MEDS: chlordiazePOXIDE HCL 10 MG CAPSULE PO SCH ×2 (06:15→18:28)
[2020-07-15] MEDS: BISMUTH SUBSALICYLATE 524 MG/30 ML UD PO PRN ×3 (06:17→18:29)
[2020-07-15] MEDS: PRENATAL VITAMINS W/ FOLIC ACID TABLET (FP) PO SCH (10:44)
[2020-07-15] MEDS: ATORVASTATIN CA 10 MG TABLET (FP) PO SCH (22:18)
[2020-07-15] MEDS: THIAMINE HCL 100 MG TABLET (FP) PO SCH (22:18)
[2020-07-15] MEDS: QUEtiapine FUMARATE 400 MG TABLET PO SCH (22:18)
[2020-07-15] MEDS: MELATONIN 5 MG TABLETS PO SCH (22:19)
[2020-07-16] MEDS ORDERED: chlordiazePOXIDE HCL 10 MG CAPSULE PO ONE (05:00)
[2020-07-16] MEDS: hydrOXYzine PAMOATE 25 MG CAPSULE (FP) PO SCH ×2 (05:53→10:05)
[2020-07-16] MEDS: BISMUTH SUBSALICYLATE 524 MG/30 ML UD PO PRN (07:40)
[2020-07-16 09:53] VITALS: BP 130/61; PULSE 104; TEMP 98
[2020-07-16] MEDS: PRENATAL VITAMINS W/ FOLIC ACID TABLET (FP) PO SCH (10:05)
== END 2020-07-16 12:24 | disposition home or self-care (01) | DRG 774 ==
LOC: YASAS 09:06 → Y6N 09:47
PROVIDERS: ADMIT Allergy & Immunology; ATTEND Allergy & Immunology
PROC: HZ2ZZZZ Detoxification Services for Substance Abuse Treatment (ICD-10-PCS; principal; 2020-07-11)
DX: F10.230 Alcohol dependence with withdrawal, uncomplicated (principal); F14.20 Cocaine dependence, uncomplicated; F17.210 Nicotine dependence, cigarettes, uncomplicated; F19.282 Other psychoactive substance dependence with psychoactive substance-induced sleep disorder; F31.9 Bipolar disorder, unspecified; F90.9 Attention-deficit hyperactivity disorder, unspecified type; I10 Essential (primary) hypertension; E78.5 Hyperlipidemia, unspecified; L98.8 Other specified disorders of the skin and subcutaneous tissue
CPT/HCPCS: 36415; 80053; 85027; 86780; 87389; C9803; U0003

== ENCOUNTER 2020-10-03 11:54 | Inpatient (IN) | payer OTHER ==
[2020-10-03 14:41] VITALS: BMI 33.9
[2020-10-03] MEDS ORDERED: NICOTINE POLACRILEX 2 MG GUM BC PRN (20:38)
[2020-10-03] MEDS ORDERED: MAGNESIUM HYDROX 2400MG/30ML ORAL SUSPENSION 30 ML CUP PO PRN (20:38)
[2020-10-03] MEDS ORDERED: LOPERAMIDE HCL 2 MG CAPSULE PO PRN (20:38)
[2020-10-03] MEDS ORDERED: guaiFENesin 200 MG/10 ML 10 ML UNIT-DOSE CUPS PO PRN (20:38)
[2020-10-03] MEDS ORDERED: P-EPHED 60MG/TRIPROLIDI 2.5MG TABLET PO PRN (20:38)
[2020-10-03] MEDS ORDERED: ACETAMINOPHEN 325 MG TABLET (FP) PO PRN (20:38)
[2020-10-03] MEDS ORDERED: MAGNESIUM CITRATE 300 ML BOTTLE PO PRN (20:38)
[2020-10-03] MEDS ORDERED: MAG HYDROX/AL HYDROX/SIMETH 30 ML UNIT-DOSE CUP PO PRN (20:38)
[2020-10-03] MEDS ORDERED: QUEtiapine FUMARATE 400 MG TABLET PO SCH (22:00)
[2020-10-03] MEDS: GABAPENTIN 300 MG CAPSULE PO SCH (22:29)
[2020-10-03] MEDS: hydrOXYzine PAMOATE 25 MG CAPSULE (FP) PO SCH (22:29)
[2020-10-03] MEDS: THIAMINE HCL 100 MG TABLET (FP) PO SCH (22:29)
[2020-10-03] MEDS: QUEtiapine FUMARATE 200 MG TABLET PO SCH (22:29)
[2020-10-03] MEDS: MELATONIN 5 MG TABLETS PO SCH (22:29)
[2020-10-03] MEDS ORDERED: TUBERCULIN PPD 5 TU/0.1ML VIAL ID ONE (22:32)
[2020-10-04] MEDS: hydrOXYzine PAMOATE 25 MG CAPSULE (FP) PO SCH ×3 (06:24→13:07)
[2020-10-04] MEDS: GABAPENTIN 300 MG CAPSULE PO SCH ×3 (06:24→22:57)
[2020-10-04] MEDS: PRENATAL VITAMINS W/ FOLIC ACID TABLET (FP) PO SCH (09:41)
[2020-10-04] MEDS: NICOTINE 7 MG/24 HOURS TOPICAL PATCH TD SCH (09:41)
[2020-10-04] MEDS: QUEtiapine FUMARATE 200 MG TABLET PO SCH ×2 (09:42→22:57)
[2020-10-04 10:03] LABS: HEMATOCRIT 42.5 % (35.4-49); HEMOGLOBIN 14.3 GM/dL (11.7-16.9); MCH 27.5 pg (25.7-33.7); MCHC 33.6 g/dl (32.0-35.9); MEAN CELL VOLUME 81.6 fl (80-96); MEAN PLT VOLUME 9.9 fl (7.5-11.1); PLATELET COUNT 202 K/MM3 (134-434); RBC 5.21 M/mm3 (4.00-5.60); RDW 14.6 % (11.9-15.9); WHITE BLOOD COUNT 9.2 K/mm3 (4.0-10.0)
[2020-10-04 10:13] LABS: PH,URINE 5.5 (5.0-8.0); URINE APPEARANCE CLEAR; URINE BILIRUBIN NEGATIVE (NEGATIVE); URINE COLOR YELLOW; URINE GLUCOSE (UA) NEGATIVE (NEGATIVE); URINE KETONE NEGATIVE (NEGATIVE); URINE LEUK ESTERASE NEGATIVE (NEGATIVE); URINE NITRITE NEGATIVE (NEGATIVE); URINE PROTEIN NEGATIVE (NEGATIVE); URINE UROBILINOGEN 0.2 mg/dL (0.2-1.0)
[2020-10-04 10:20] LABS: ALBUMIN 3.7 g/dl (3.4-5.0); BILIRUBIN,TOTAL 0.4 mg/dL (0.2-1); BLOOD UREA NITROGEN 15.1 mg/dL (7-18)
[2020-10-04 10:22] LABS: TOT PROT 7.6 g/dl (6.4-8.2)
[2020-10-04 10:23] LABS: CREATININE 1.3 mg/dL (0.55-1.3)
[2020-10-04 12:26] LABS: HIV INTERPRETATION PRESUMPTIVE POSITIVE (NEGATIVE)
[2020-10-04] MEDS ORDERED: hydrOXYzine PAMOATE 25 MG CAPSULE (FP) PO PRN (13:35)
[2020-10-04] MEDS: THIAMINE HCL 100 MG TABLET (FP) PO SCH (22:57)
[2020-10-04] MEDS: MELATONIN 5 MG TABLETS PO SCH (22:58)
[2020-10-05] MEDS: GABAPENTIN 300 MG CAPSULE PO SCH ×3 (07:38→21:37)
[2020-10-05] MEDS: PRENATAL VITAMINS W/ FOLIC ACID TABLET (FP) PO SCH (09:38)
[2020-10-05] MEDS: NICOTINE 7 MG/24 HOURS TOPICAL PATCH TD SCH (09:38)
[2020-10-05] MEDS: QUEtiapine FUMARATE 200 MG TABLET PO SCH ×2 (09:39→21:38)
[2020-10-05] MEDS: THIAMINE HCL 100 MG TABLET (FP) PO SCH (21:37)
[2020-10-05] MEDS: MELATONIN 5 MG TABLETS PO SCH (21:38)
[2020-10-06] MEDS: GABAPENTIN 300 MG CAPSULE PO SCH ×3 (06:51→21:18)
[2020-10-06] MEDS: PRENATAL VITAMINS W/ FOLIC ACID TABLET (FP) PO SCH (09:36)
[2020-10-06] MEDS: QUEtiapine FUMARATE 200 MG TABLET PO SCH (09:36)
[2020-10-06] MEDS: NICOTINE 7 MG/24 HOURS TOPICAL PATCH TD SCH (09:37)
[2020-10-06] MEDS: MELATONIN 5 MG TABLETS PO SCH (21:18)
[2020-10-06] MEDS: QUEtiapine FUMARATE 400 MG TABLET PO SCH (21:19)
[2020-10-06] MEDS: THIAMINE HCL 100 MG TABLET (FP) PO SCH (21:19)
[2020-10-07 06:05] LABS: SARS-CoV-2 NAA Not Detected (Not Detected)
[2020-10-07] MEDS: GABAPENTIN 300 MG CAPSULE PO SCH ×3 (07:26→22:42)
[2020-10-07] MEDS: QUEtiapine FUMARATE 200 MG TABLET PO SCH (09:49)
[2020-10-07] MEDS: PRENATAL VITAMINS W/ FOLIC ACID TABLET (FP) PO SCH (09:51)
[2020-10-07] MEDS: NICOTINE 7 MG/24 HOURS TOPICAL PATCH TD SCH (11:05)
[2020-10-07] MEDS: MELATONIN 5 MG TABLETS PO SCH (22:42)
[2020-10-07] MEDS: QUEtiapine FUMARATE 400 MG TABLET PO SCH (22:43)
[2020-10-07] MEDS: THIAMINE HCL 100 MG TABLET (FP) PO SCH (22:43)
[2020-10-08] MEDS: GABAPENTIN 300 MG CAPSULE PO SCH ×3 (06:58→21:55)
[2020-10-08] MEDS: NICOTINE 7 MG/24 HOURS TOPICAL PATCH TD SCH (09:42)
[2020-10-08] MEDS: PRENATAL VITAMINS W/ FOLIC ACID TABLET (FP) PO SCH (09:42)
[2020-10-08] MEDS: QUEtiapine FUMARATE 200 MG TABLET PO SCH (09:42)
[2020-10-08] MEDS: IBUPROFEN 400 MG TABLET (FP) PO PRN (19:50)
[2020-10-08] MEDS: THIAMINE HCL 100 MG TABLET (FP) PO SCH (21:55)
[2020-10-08] MEDS: QUEtiapine FUMARATE 400 MG TABLET PO SCH (21:56)
[2020-10-08] MEDS: MELATONIN 5 MG TABLETS PO SCH (22:27)
[2020-10-09] MEDS: GABAPENTIN 300 MG CAPSULE PO SCH ×3 (06:54→21:03)
[2020-10-09] MEDS: NICOTINE 7 MG/24 HOURS TOPICAL PATCH TD SCH (09:22)
[2020-10-09] MEDS: QUEtiapine FUMARATE 200 MG TABLET PO SCH (09:22)
[2020-10-09] MEDS: PRENATAL VITAMINS W/ FOLIC ACID TABLET (FP) PO SCH (09:22)
[2020-10-09] MEDS: IBUPROFEN 400 MG TABLET (FP) PO PRN (09:23)
[2020-10-09] MEDS: THIAMINE HCL 100 MG TABLET (FP) PO SCH (21:03)
[2020-10-09] MEDS: QUEtiapine FUMARATE 400 MG TABLET PO SCH (21:03)
[2020-10-09] MEDS: MELATONIN 5 MG TABLETS PO SCH (21:04)
[2020-10-10] MEDS: GABAPENTIN 300 MG CAPSULE PO SCH ×3 (07:09→21:19)
[2020-10-10] MEDS: PRENATAL VITAMINS W/ FOLIC ACID TABLET (FP) PO SCH (09:26)
[2020-10-10] MEDS: QUEtiapine FUMARATE 200 MG TABLET PO SCH (09:26)
[2020-10-10] MEDS: NICOTINE 7 MG/24 HOURS TOPICAL PATCH TD SCH (09:26)
[2020-10-10] MEDS: MINERAL OIL/PETROLAT/WATER TOPICAL CREAM 113 GM JAR TP SCH (16:00)
[2020-10-10] MEDS: QUEtiapine FUMARATE 400 MG TABLET PO SCH (21:19)
[2020-10-10] MEDS: MELATONIN 5 MG TABLETS PO SCH (21:19)
[2020-10-10] MEDS: THIAMINE HCL 100 MG TABLET (FP) PO SCH (21:20)
[2020-10-11] MEDS: GABAPENTIN 300 MG CAPSULE PO SCH ×3 (06:53→21:47)
[2020-10-11] MEDS: PRENATAL VITAMINS W/ FOLIC ACID TABLET (FP) PO SCH (09:57)
[2020-10-11] MEDS: MINERAL OIL/PETROLAT/WATER TOPICAL CREAM 113 GM JAR TP SCH (09:57)
[2020-10-11] MEDS: NICOTINE 7 MG/24 HOURS TOPICAL PATCH TD SCH (09:57)
[2020-10-11] MEDS: QUEtiapine FUMARATE 200 MG TABLET PO SCH (09:57)
[2020-10-11] MEDS: QUEtiapine FUMARATE 400 MG TABLET PO SCH (21:47)
[2020-10-11] MEDS: THIAMINE HCL 100 MG TABLET (FP) PO SCH (21:48)
[2020-10-11] MEDS: MELATONIN 5 MG TABLETS PO SCH (21:48)
[2020-10-12] MEDS: GABAPENTIN 300 MG CAPSULE PO SCH ×3 (06:30→21:17)
[2020-10-12] MEDS: QUEtiapine FUMARATE 200 MG TABLET PO SCH (09:40)
[2020-10-12] MEDS: NICOTINE 7 MG/24 HOURS TOPICAL PATCH TD SCH (09:40)
[2020-10-12] MEDS: MINERAL OIL/PETROLAT/WATER TOPICAL CREAM 113 GM JAR TP SCH (09:40)
[2020-10-12] MEDS: PRENATAL VITAMINS W/ FOLIC ACID TABLET (FP) PO SCH (09:40)
[2020-10-12] MEDS: QUEtiapine FUMARATE 400 MG TABLET PO SCH (21:17)
[2020-10-12] MEDS: THIAMINE HCL 100 MG TABLET (FP) PO SCH (21:17)
[2020-10-12] MEDS: MELATONIN 5 MG TABLETS PO SCH (21:18)
[2020-10-13] MEDS: GABAPENTIN 300 MG CAPSULE PO SCH ×3 (06:41→21:13)
[2020-10-13] MEDS: PRENATAL VITAMINS W/ FOLIC ACID TABLET (FP) PO SCH ×2 (10:00→11:20)
[2020-10-13] MEDS: NICOTINE 7 MG/24 HOURS TOPICAL PATCH TD SCH (10:00)
[2020-10-13] MEDS: QUEtiapine FUMARATE 200 MG TABLET PO SCH (10:00)
[2020-10-13] MEDS: MINERAL OIL/PETROLAT/WATER TOPICAL CREAM 113 GM JAR TP SCH (10:01)
[2020-10-13] MEDS: QUEtiapine FUMARATE 400 MG TABLET PO SCH (21:13)
[2020-10-13] MEDS: MELATONIN 5 MG TABLETS PO SCH (21:13)
[2020-10-13] MEDS: THIAMINE HCL 100 MG TABLET (FP) PO SCH (21:13)
[2020-10-14] MEDS: GABAPENTIN 300 MG CAPSULE PO SCH ×3 (06:33→21:49)
[2020-10-14] MEDS ORDERED: COLLOIDAL OATMEAL 1 BAR EACH TP PRN (08:57)
[2020-10-14] MEDS: PRENATAL VITAMINS W/ FOLIC ACID TABLET (FP) PO SCH (09:45)
[2020-10-14] MEDS: MINERAL OIL/PETROLAT/WATER TOPICAL CREAM 113 GM JAR TP SCH (09:45)
[2020-10-14] MEDS: NICOTINE 7 MG/24 HOURS TOPICAL PATCH TD SCH (09:45)
[2020-10-14] MEDS: QUEtiapine FUMARATE 200 MG TABLET PO SCH (09:45)
[2020-10-14] MEDS: QUEtiapine FUMARATE 400 MG TABLET PO SCH (21:49)
[2020-10-14] MEDS: THIAMINE HCL 100 MG TABLET (FP) PO SCH (21:50)
[2020-10-14] MEDS: MELATONIN 5 MG TABLETS PO SCH (21:50)
[2020-10-15] MEDS: GABAPENTIN 300 MG CAPSULE PO SCH ×3 (06:38→21:14)
[2020-10-15] MEDS: MINERAL OIL/PETROLAT/WATER TOPICAL CREAM 113 GM JAR TP SCH (09:41)
[2020-10-15] MEDS: QUEtiapine FUMARATE 200 MG TABLET PO SCH (09:41)
[2020-10-15] MEDS: PRENATAL VITAMINS W/ FOLIC ACID TABLET (FP) PO SCH (09:41)
[2020-10-15] MEDS: NICOTINE 7 MG/24 HOURS TOPICAL PATCH TD SCH (09:41)
[2020-10-15] MEDS: QUEtiapine FUMARATE 400 MG TABLET PO SCH (21:15)
[2020-10-15] MEDS: MELATONIN 5 MG TABLETS PO SCH (21:15)
[2020-10-15] MEDS: THIAMINE HCL 100 MG TABLET (FP) PO SCH (21:15)
[2020-10-16] MEDS: GABAPENTIN 300 MG CAPSULE PO SCH ×3 (07:29→21:45)
[2020-10-16] MEDS: PRENATAL VITAMINS W/ FOLIC ACID TABLET (FP) PO SCH (09:51)
[2020-10-16] MEDS: NICOTINE 7 MG/24 HOURS TOPICAL PATCH TD SCH (09:51)
[2020-10-16] MEDS: MINERAL OIL/PETROLAT/WATER TOPICAL CREAM 113 GM JAR TP SCH (09:51)
[2020-10-16] MEDS: QUEtiapine FUMARATE 200 MG TABLET PO SCH (09:51)
[2020-10-16] MEDS: QUEtiapine FUMARATE 400 MG TABLET PO SCH (21:45)
[2020-10-16] MEDS: THIAMINE HCL 100 MG TABLET (FP) PO SCH (21:45)
[2020-10-16] MEDS: MELATONIN 5 MG TABLETS PO SCH (21:46)
[2020-10-17] MEDS: GABAPENTIN 300 MG CAPSULE PO SCH (06:35)
[2020-10-17 06:40] VITALS: TEMP 97.3
[2020-10-17 09:16] VITALS: BP 122/89; PULSE 120
[2020-10-17] MEDS: NICOTINE 7 MG/24 HOURS TOPICAL PATCH TD SCH (09:41)
[2020-10-17] MEDS: PRENATAL VITAMINS W/ FOLIC ACID TABLET (FP) PO SCH (09:41)
[2020-10-17] MEDS: MINERAL OIL/PETROLAT/WATER TOPICAL CREAM 113 GM JAR TP SCH (09:42)
[2020-10-17] MEDS: QUEtiapine FUMARATE 200 MG TABLET PO SCH (09:42)
== END 2020-10-17 10:53 | disposition home or self-care (01) | DRG 773 ==
LOC: YASAS 11:54 → Y5N 20:02
PROVIDERS: ADMIT Allergy & Immunology; ATTEND Allergy & Immunology
PROC: HZ2ZZZZ Detoxification Services for Substance Abuse Treatment (ICD-10-PCS; principal; 2020-10-03)
DX: F10.20 Alcohol dependence, uncomplicated (principal); F14.20 Cocaine dependence, uncomplicated; F11.10 Opioid abuse, uncomplicated; F17.210 Nicotine dependence, cigarettes, uncomplicated; F19.280 Other psychoactive substance dependence with psychoactive substance-induced anxiety disorder; F19.282 Other psychoactive substance dependence with psychoactive substance-induced sleep disorder; F31.9 Bipolar disorder, unspecified; I10 Essential (primary) hypertension; E78.5 Hyperlipidemia, unspecified
CPT/HCPCS: 36415; 80053; 81003; 85027; 86780; 87389; 93005; 93010; C9803; U0003; U0005

== ENCOUNTER 2020-12-11 10:51 | Inpatient (IN) | payer OTHER ==
[2020-12-11 12:26] VITALS: BMI 33.9
[2020-12-11] MEDS ORDERED: guaiFENesin 200 MG/10 ML 10 ML UNIT-DOSE CUPS PO PRN (16:30)
[2020-12-11] MEDS ORDERED: MAGNESIUM CITRATE 300 ML BOTTLE PO PRN (16:30)
[2020-12-11] MEDS ORDERED: P-EPHED 60MG/TRIPROLIDI 2.5MG TABLET PO PRN (16:30)
[2020-12-11] MEDS ORDERED: ACETAMINOPHEN 325 MG TABLET (FP) PO PRN (16:30)
[2020-12-11] MEDS ORDERED: LOPERAMIDE HCL 2 MG CAPSULE PO PRN (16:30)
[2020-12-11] MEDS ORDERED: NICOTINE POLACRILEX 2 MG GUM BC PRN (16:30)
[2020-12-11] MEDS ORDERED: MAG HYDROX/AL HYDROX/SIMETH 30 ML UNIT-DOSE CUP PO PRN (16:30)
[2020-12-11] MEDS ORDERED: IBUPROFEN 400 MG TABLET (FP) PO PRN (16:30)
[2020-12-11] MEDS ORDERED: MAGNESIUM HYDROX 2400MG/30ML ORAL SUSPENSION 30 ML CUP PO PRN (16:30)
[2020-12-11] MEDS: hydrOXYzine PAMOATE 25 MG CAPSULE (FP) PO SCH ×2 (19:05→21:50)
[2020-12-11] MEDS: MELATONIN 5 MG TABLETS PO SCH (21:49)
[2020-12-11] MEDS: THIAMINE HCL 100 MG TABLET (FP) PO SCH (21:49)
[2020-12-12] MEDS: hydrOXYzine PAMOATE 25 MG CAPSULE (FP) PO SCH (06:32)
[2020-12-12] MEDS ORDERED: hydrOXYzine PAMOATE 25 MG CAPSULE (FP) PO PRN (08:34)
[2020-12-12] MEDS: PRENATAL VITAMINS W/ FOLIC ACID TABLET (FP) PO SCH (09:23)
[2020-12-12] MEDS: QUEtiapine FUMARATE 200 MG TABLET PO SCH (12:38)
[2020-12-12] MEDS: MELATONIN 5 MG TABLETS PO SCH (21:47)
[2020-12-12] MEDS: THIAMINE HCL 100 MG TABLET (FP) PO SCH (21:47)
[2020-12-12] MEDS: QUEtiapine FUMARATE 400 MG TABLET PO SCH (21:47)
[2020-12-13] MEDS: PRENATAL VITAMINS W/ FOLIC ACID TABLET (FP) PO SCH (09:34)
[2020-12-13] MEDS: QUEtiapine FUMARATE 200 MG TABLET PO SCH (09:34)
[2020-12-13 12:33] LABS: HEMATOCRIT 40.5 % (35.4-49); HEMOGLOBIN 13.4 GM/dL (11.7-16.9); MCH 26.9 pg (25.7-33.7); MEAN CELL VOLUME 81.7 fl (80-96); MEAN PLT VOLUME 9.4 fl (7.5-11.1); PLATELET COUNT 183 10^3/uL (134-434); RBC 4.96 M/mm3 (4.00-5.60); RDW 14.7 % (11.9-15.9); WHITE BLOOD COUNT 5.1 K/mm3 (4.0-10.0)
[2020-12-13 12:51] LABS: ALBUMIN 3.4 g/dl (3.4-5.0); BLOOD UREA NITROGEN 13.1 mg/dL (7-18); CALCIUM 9.4 mg/dL (8.5-10.1)
[2020-12-13 12:56] LABS: BILIRUBIN,TOTAL 0.2 mg/dL (0.2-1)
[2020-12-13 12:58] LABS: TOT PROT 6.8 g/dl (6.4-8.2)
[2020-12-13] MEDS: QUEtiapine FUMARATE 400 MG TABLET PO SCH (21:16)
[2020-12-13] MEDS: MELATONIN 5 MG TABLETS PO SCH (21:16)
[2020-12-13] MEDS: THIAMINE HCL 100 MG TABLET (FP) PO SCH (21:16)
[2020-12-14] MEDS: PRENATAL VITAMINS W/ FOLIC ACID TABLET (FP) PO SCH (09:23)
[2020-12-14] MEDS: QUEtiapine FUMARATE 200 MG TABLET PO SCH (09:23)
[2020-12-14] MEDS: MINERAL OIL/PETROLAT/WATER TOPICAL CREAM 113 GM JAR TP PRN (14:28)
[2020-12-14] MEDS: QUEtiapine FUMARATE 400 MG TABLET PO SCH (21:29)
[2020-12-14] MEDS: THIAMINE HCL 100 MG TABLET (FP) PO SCH (21:29)
[2020-12-14] MEDS: MELATONIN 5 MG TABLETS PO SCH (21:30)
[2020-12-15] MEDS: PRENATAL VITAMINS W/ FOLIC ACID TABLET (FP) PO SCH (09:56)
[2020-12-15] MEDS: QUEtiapine FUMARATE 200 MG TABLET PO SCH (09:57)
[2020-12-15] MEDS: amLODIPine BESYLATE 5 MG TABLET (FP) PO SCH ×2 (12:38→12:39)
[2020-12-15] MEDS ORDERED: PT OWN MED DRAWER 7, Y5N ONE (19:56)
[2020-12-15] MEDS: QUEtiapine FUMARATE 400 MG TABLET PO SCH (21:13)
[2020-12-15] MEDS: THIAMINE HCL 100 MG TABLET (FP) PO SCH (21:13)
[2020-12-15] MEDS: MELATONIN 5 MG TABLETS PO SCH (21:14)
[2020-12-16] MEDS: amLODIPine BESYLATE 5 MG TABLET (FP) PO SCH (09:49)
[2020-12-16] MEDS: PRENATAL VITAMINS W/ FOLIC ACID TABLET (FP) PO SCH (09:49)
[2020-12-16] MEDS: QUEtiapine FUMARATE 200 MG TABLET PO SCH (09:49)
[2020-12-16] MEDS: QUEtiapine FUMARATE 400 MG TABLET PO SCH (21:20)
[2020-12-16] MEDS: THIAMINE HCL 100 MG TABLET (FP) PO SCH (21:20)
[2020-12-16] MEDS: MELATONIN 5 MG TABLETS PO SCH (21:21)
[2020-12-17] MEDS: QUEtiapine FUMARATE 200 MG TABLET PO SCH (09:27)
[2020-12-17] MEDS: PRENATAL VITAMINS W/ FOLIC ACID TABLET (FP) PO SCH (09:27)
[2020-12-17] MEDS: amLODIPine BESYLATE 5 MG TABLET (FP) PO SCH (09:27)
[2020-12-17] MEDS: QUEtiapine FUMARATE 400 MG TABLET PO SCH (21:19)
[2020-12-17] MEDS: THIAMINE HCL 100 MG TABLET (FP) PO SCH (21:19)
[2020-12-17] MEDS: MELATONIN 5 MG TABLETS PO SCH (21:20)
[2020-12-18] MEDS ORDERED: PT OWN MED DRAWER 7, Y5N ONE ×2 (08:47→19:06)
[2020-12-18] MEDS: PRENATAL VITAMINS W/ FOLIC ACID TABLET (FP) PO SCH (09:21)
[2020-12-18] MEDS: QUEtiapine FUMARATE 200 MG TABLET PO SCH (09:21)
[2020-12-18] MEDS: amLODIPine BESYLATE 5 MG TABLET (FP) PO SCH (09:21)
[2020-12-18] MEDS: MELATONIN 5 MG TABLETS PO SCH (21:26)
[2020-12-18] MEDS: THIAMINE HCL 100 MG TABLET (FP) PO SCH (21:27)
[2020-12-18] MEDS: QUEtiapine FUMARATE 400 MG TABLET PO SCH (21:27)
[2020-12-19] MEDS: MINERAL OIL/PETROLAT/WATER TOPICAL CREAM 113 GM JAR TP PRN (06:25)
[2020-12-19] MEDS ORDERED: PT OWN MED DRAWER 7, Y5N ONE ×2 (06:26→19:01)
[2020-12-19] MEDS: amLODIPine BESYLATE 5 MG TABLET (FP) PO SCH (09:45)
[2020-12-19] MEDS: QUEtiapine FUMARATE 200 MG TABLET PO SCH (09:45)
[2020-12-19] MEDS: PRENATAL VITAMINS W/ FOLIC ACID TABLET (FP) PO SCH (09:45)
[2020-12-19] MEDS ORDERED: COLLOIDAL OATMEAL 1 BAR EACH TP PRN (14:28)
[2020-12-19] MEDS: MELATONIN 5 MG TABLETS PO SCH (21:38)
[2020-12-19] MEDS: THIAMINE HCL 100 MG TABLET (FP) PO SCH (21:39)
[2020-12-19] MEDS: QUEtiapine FUMARATE 400 MG TABLET PO SCH (21:39)
[2020-12-20] MEDS: MINERAL OIL/PETROLAT/WATER TOPICAL CREAM 113 GM JAR TP PRN (07:11)
[2020-12-20] MEDS ORDERED: PT OWN MED DRAWER 7, Y5N ONE (07:12)
[2020-12-20] MEDS: QUEtiapine FUMARATE 200 MG TABLET PO SCH (09:38)
[2020-12-20] MEDS: PRENATAL VITAMINS W/ FOLIC ACID TABLET (FP) PO SCH (09:38)
[2020-12-20] MEDS: amLODIPine BESYLATE 5 MG TABLET (FP) PO SCH (09:38)
[2020-12-20] MEDS: QUEtiapine FUMARATE 400 MG TABLET PO SCH (21:32)
[2020-12-20] MEDS: MELATONIN 5 MG TABLETS PO SCH (21:32)
[2020-12-20] MEDS: TOLNAFTATE 1% CREAM 15 GM TUBE TP SCH (21:32)
[2020-12-20] MEDS: THIAMINE HCL 100 MG TABLET (FP) PO SCH (21:32)
[2020-12-21] MEDS: QUEtiapine FUMARATE 200 MG TABLET PO SCH (09:22)
[2020-12-21] MEDS: amLODIPine BESYLATE 5 MG TABLET (FP) PO SCH (09:22)
[2020-12-21] MEDS: PRENATAL VITAMINS W/ FOLIC ACID TABLET (FP) PO SCH (09:22)
[2020-12-21] MEDS: TOLNAFTATE 1% CREAM 15 GM TUBE TP SCH ×2 (09:23→21:53)
[2020-12-21] MEDS ORDERED: PT OWN MED DRAWER 7, Y5N ONE (21:51)
[2020-12-21] MEDS: QUEtiapine FUMARATE 400 MG TABLET PO SCH (21:52)
[2020-12-21] MEDS: THIAMINE HCL 100 MG TABLET (FP) PO SCH (21:52)
[2020-12-21] MEDS: MELATONIN 5 MG TABLETS PO SCH (21:53)
[2020-12-22] MEDS: MINERAL OIL/PETROLAT/WATER TOPICAL CREAM 113 GM JAR TP PRN (07:35)
[2020-12-22] MEDS: QUEtiapine FUMARATE 200 MG TABLET PO SCH (09:39)
[2020-12-22] MEDS: PRENATAL VITAMINS W/ FOLIC ACID TABLET (FP) PO SCH (09:39)
[2020-12-22] MEDS: amLODIPine BESYLATE 5 MG TABLET (FP) PO SCH (09:39)
[2020-12-22] MEDS: TOLNAFTATE 1% CREAM 15 GM TUBE TP SCH ×2 (09:55→22:50)
[2020-12-22] MEDS ORDERED: PT OWN MED DRAWER 7, Y5N ONE (22:07)
[2020-12-22] MEDS: THIAMINE HCL 100 MG TABLET (FP) PO SCH (22:07)
[2020-12-22] MEDS: QUEtiapine FUMARATE 400 MG TABLET PO SCH (22:49)
[2020-12-22] MEDS: MELATONIN 5 MG TABLETS PO SCH (22:50)
[2020-12-23] MEDS: QUEtiapine FUMARATE 200 MG TABLET PO SCH (09:41)
[2020-12-23] MEDS: amLODIPine BESYLATE 5 MG TABLET (FP) PO SCH (09:41)
[2020-12-23] MEDS: PRENATAL VITAMINS W/ FOLIC ACID TABLET (FP) PO SCH (09:41)
[2020-12-23] MEDS: TOLNAFTATE 1% CREAM 15 GM TUBE TP SCH ×2 (09:42→21:29)
[2020-12-23] MEDS ORDERED: PT OWN MED DRAWER 7, Y5N ONE ×2 (19:34→21:30)
[2020-12-23] MEDS: QUEtiapine FUMARATE 400 MG TABLET PO SCH (21:28)
[2020-12-23] MEDS: THIAMINE HCL 100 MG TABLET (FP) PO SCH (21:28)
[2020-12-23] MEDS: MINERAL OIL/PETROLAT/WATER TOPICAL CREAM 113 GM JAR TP PRN (21:30)
[2020-12-23] MEDS: MELATONIN 5 MG TABLETS PO SCH (21:35)
[2020-12-24] MEDS ORDERED: PT OWN MED DRAWER 7, Y5N ONE ×2 (08:08→23:19)
[2020-12-24] MEDS: amLODIPine BESYLATE 5 MG TABLET (FP) PO SCH (09:12)
[2020-12-24] MEDS: PRENATAL VITAMINS W/ FOLIC ACID TABLET (FP) PO SCH (09:12)
[2020-12-24] MEDS: TOLNAFTATE 1% CREAM 15 GM TUBE TP SCH ×2 (09:13→21:46)
[2020-12-24] MEDS: QUEtiapine FUMARATE 200 MG TABLET PO SCH (09:13)
[2020-12-24] MEDS: QUEtiapine FUMARATE 400 MG TABLET PO SCH (21:45)
[2020-12-24] MEDS: THIAMINE HCL 100 MG TABLET (FP) PO SCH (21:45)
[2020-12-24] MEDS: MELATONIN 5 MG TABLETS PO SCH (21:46)
[2020-12-25] MEDS: QUEtiapine FUMARATE 200 MG TABLET PO SCH (09:23)
[2020-12-25] MEDS: PRENATAL VITAMINS W/ FOLIC ACID TABLET (FP) PO SCH (09:23)
[2020-12-25] MEDS: amLODIPine BESYLATE 5 MG TABLET (FP) PO SCH (09:23)
[2020-12-25] MEDS: TOLNAFTATE 1% CREAM 15 GM TUBE TP SCH ×2 (09:46→21:57)
[2020-12-25] MEDS ORDERED: PT OWN MED DRAWER 7, Y5N ONE ×2 (19:16→21:56)
[2020-12-25] MEDS: MELATONIN 5 MG TABLETS PO SCH (21:54)
[2020-12-25] MEDS: QUEtiapine FUMARATE 400 MG TABLET PO SCH (21:54)
[2020-12-25] MEDS: THIAMINE HCL 100 MG TABLET (FP) PO SCH (21:55)
[2020-12-25] MEDS: MINERAL OIL/PETROLAT/WATER TOPICAL CREAM 113 GM JAR TP PRN (21:56)
[2020-12-26 06:38] VITALS: BP 127/90; PULSE 94; TEMP 96.8
== END 2020-12-26 08:48 | disposition home or self-care (01) | DRG 772 ==
LOC: YASAS 10:51 → Y3E 17:14
PROVIDERS: ADMIT Allergy & Immunology; ATTEND Allergy & Immunology
PROC: HZ42ZZZ Group Counseling for Substance Abuse Treatment, Cognitive-Behavioral (ICD-10-PCS; principal; 2020-12-11)
DX: F10.20 Alcohol dependence, uncomplicated (principal); F14.20 Cocaine dependence, uncomplicated; F17.210 Nicotine dependence, cigarettes, uncomplicated; F19.282 Other psychoactive substance dependence with psychoactive substance-induced sleep disorder; F19.24 Other psychoactive substance dependence with psychoactive substance-induced mood disorder; F51.01 Primary insomnia; F31.9 Bipolar disorder, unspecified; F90.9 Attention-deficit hyperactivity disorder, unspecified type; E78.5 Hyperlipidemia, unspecified; I10 Essential (primary) hypertension
CPT/HCPCS: 36415; 80053; 85027; 86780; C9803; U0003; U0005

== ENCOUNTER 2021-03-15 11:21 | Inpatient (IN) | payer OTHER ==
[2021-03-15 12:47] VITALS: BMI 38.1
[2021-03-15] MEDS ORDERED: guaiFENesin 200 MG/10 ML 10 ML UNIT-DOSE CUPS PO PRN (16:40)
[2021-03-15] MEDS ORDERED: MAGNESIUM HYDROX 2400MG/30ML ORAL SUSPENSION 30 ML CUP PO PRN (16:40)
[2021-03-15] MEDS ORDERED: NICOTINE 10 MG CARTRIDGE (INHALER) IH PRN (16:40)
[2021-03-15] MEDS ORDERED: LOPERAMIDE HCL 2 MG CAPSULE PO PRN (16:40)
[2021-03-15] MEDS ORDERED: ACETAMINOPHEN 325 MG TABLET (FP) PO PRN (16:40)
[2021-03-15] MEDS ORDERED: P-EPHED 60MG/TRIPROLIDI 2.5MG TABLET PO PRN (16:40)
[2021-03-15] MEDS ORDERED: MAG HYDROX/AL HYDROX/SIMETH 30 ML UNIT-DOSE CUP PO PRN (16:40)
[2021-03-15] MEDS ORDERED: MAGNESIUM CITRATE 300 ML BOTTLE PO PRN (16:40)
[2021-03-15] MEDS ORDERED: IBUPROFEN 400 MG TABLET (FP) PO PRN (16:40)
[2021-03-15] MEDS: hydrOXYzine PAMOATE 25 MG CAPSULE (FP) PO SCH ×2 (17:48→22:07)
[2021-03-15] MEDS: NICOTINE 7 MG/24 HOURS TOPICAL PATCH TD SCH (17:48)
[2021-03-15] MEDS ORDERED: MELATONIN 5 MG TABLETS PO SCH (22:00)
[2021-03-15] MEDS: THIAMINE HCL 100 MG TABLET (FP) PO SCH (22:07)
[2021-03-16] MEDS: hydrOXYzine PAMOATE 25 MG CAPSULE (FP) PO SCH ×2 (06:31→10:09)
[2021-03-16] MEDS: NICOTINE 7 MG/24 HOURS TOPICAL PATCH TD SCH (10:09)
[2021-03-16] MEDS: PRENATAL VITAMINS W/ FOLIC ACID TABLET (FP) PO SCH (10:09)
[2021-03-16] MEDS: QUEtiapine FUMARATE 200 MG TABLET PO SCH (10:47)
[2021-03-16 10:55] LABS: HEMATOCRIT 42.1 % (35.4-49); MCH 27.1 pg (25.7-33.7); MCHC 33.4 g/dl (32.0-35.9); MEAN CELL VOLUME 81.2 fl (80-96); PLATELET COUNT 203 10^3/uL (134-434); RBC 5.18 M/mm3 (4.00-5.60); RDW 14.4 % (11.9-15.9); WHITE BLOOD COUNT 6.7 K/mm3 (4.0-10.0)
[2021-03-16 11:23] LABS: ALBUMIN 3.7 g/dl (3.4-5.0); BLOOD UREA NITROGEN 12.9 mg/dL (7-18); CALCIUM 9.2 mg/dL (8.5-10.1)
[2021-03-16 11:26] LABS: CREATININE 1.2 mg/dL (0.55-1.3)
[2021-03-16 11:27] LABS: BILIRUBIN,TOTAL 0.6 mg/dL (0.2-1)
[2021-03-16 11:28] LABS: TOT PROT 7.9 g/dl (6.4-8.2)
[2021-03-16] MEDS ORDERED: hydrOXYzine PAMOATE 25 MG CAPSULE (FP) PO PRN (11:58)
[2021-03-16 14:11] LABS: SYPHILIS W/ RPR CONF NON-REACTIVE (NONREACTIVE)
[2021-03-16 14:38] LABS: URINE APPEARANCE CLEAR; URINE BILIRUBIN NEGATIVE (NEGATIVE); URINE COLOR YELLOW; URINE GLUCOSE (UA) NEGATIVE (NEGATIVE); URINE KETONE NEGATIVE (NEGATIVE); URINE LEUK ESTERASE NEGATIVE (NEGATIVE); URINE NITRITE NEGATIVE (NEGATIVE); URINE PROTEIN NEGATIVE (NEGATIVE); URINE UROBILINOGEN 0.2 mg/dL (0.2-1.0)
[2021-03-16] MEDS: THIAMINE HCL 100 MG TABLET (FP) PO SCH (22:33)
[2021-03-16] MEDS: QUEtiapine FUMARATE 400 MG TABLET PO SCH (22:34)
[2021-03-17] MEDS: PRENATAL VITAMINS W/ FOLIC ACID TABLET (FP) PO SCH (09:45)
[2021-03-17] MEDS: QUEtiapine FUMARATE 200 MG TABLET PO SCH (09:45)
[2021-03-17] MEDS: NICOTINE 7 MG/24 HOURS TOPICAL PATCH TD SCH (09:45)
[2021-03-17] MEDS: THIAMINE HCL 100 MG TABLET (FP) PO SCH (21:08)
[2021-03-17] MEDS: QUEtiapine FUMARATE 400 MG TABLET PO SCH (21:08)
[2021-03-18] MEDS: NICOTINE 7 MG/24 HOURS TOPICAL PATCH TD SCH (09:06)
[2021-03-18] MEDS: PRENATAL VITAMINS W/ FOLIC ACID TABLET (FP) PO SCH (09:06)
[2021-03-18] MEDS: QUEtiapine FUMARATE 200 MG TABLET PO SCH (09:06)
[2021-03-18] MEDS ORDERED: PT OWN MED DRAWER 7, Y5N ONE (15:43)
[2021-03-18] MEDS: QUEtiapine FUMARATE 400 MG TABLET PO SCH (21:38)
[2021-03-18] MEDS: THIAMINE HCL 100 MG TABLET (FP) PO SCH (21:38)
[2021-03-19] MEDS: QUEtiapine FUMARATE 200 MG TABLET PO SCH (09:17)
[2021-03-19] MEDS: PRENATAL VITAMINS W/ FOLIC ACID TABLET (FP) PO SCH (09:17)
[2021-03-19] MEDS: NICOTINE 7 MG/24 HOURS TOPICAL PATCH TD SCH (09:18)
[2021-03-19 16:06] LABS: SARS-CoV-2 NAA Not Detected (Not Detected)
[2021-03-19] MEDS: QUEtiapine FUMARATE 400 MG TABLET PO SCH (21:47)
[2021-03-19] MEDS: THIAMINE HCL 100 MG TABLET (FP) PO SCH (21:47)
[2021-03-20] MEDS: PRENATAL VITAMINS W/ FOLIC ACID TABLET (FP) PO SCH (09:44)
[2021-03-20] MEDS: QUEtiapine FUMARATE 200 MG TABLET PO SCH (09:44)
[2021-03-20] MEDS: NICOTINE 7 MG/24 HOURS TOPICAL PATCH TD SCH (10:35)
[2021-03-20] MEDS ORDERED: COLLOIDAL OATMEAL 1 BAR EACH TP PRN (14:39)
[2021-03-20] MEDS: THIAMINE HCL 100 MG TABLET (FP) PO SCH (21:57)
[2021-03-20] MEDS: QUEtiapine FUMARATE 400 MG TABLET PO SCH (21:58)
[2021-03-20] MEDS: TOLNAFTATE 1% CREAM 15 GM TUBE TP SCH (21:58)
[2021-03-21] MEDS: PRENATAL VITAMINS W/ FOLIC ACID TABLET (FP) PO SCH (09:48)
[2021-03-21] MEDS: NICOTINE 7 MG/24 HOURS TOPICAL PATCH TD SCH (09:48)
[2021-03-21] MEDS: TOLNAFTATE 1% CREAM 15 GM TUBE TP SCH ×2 (09:50→22:19)
[2021-03-21] MEDS: LISINOPRIL 5 MG TABLET PO SCH (12:10)
[2021-03-21] MEDS: THIAMINE HCL 100 MG TABLET (FP) PO SCH (22:18)
[2021-03-21] MEDS: traZODone HCL 50 MG TABLET (FP) PO SCH (22:18)
[2021-03-21] MEDS: MELATONIN 5 MG TABLETS PO PRN (22:19)
[2021-03-22] MEDS: LISINOPRIL 5 MG TABLET PO SCH (09:47)
[2021-03-22] MEDS: PRENATAL VITAMINS W/ FOLIC ACID TABLET (FP) PO SCH (09:47)
[2021-03-22] MEDS: NICOTINE 7 MG/24 HOURS TOPICAL PATCH TD SCH (09:48)
[2021-03-22] MEDS: TOLNAFTATE 1% CREAM 15 GM TUBE TP SCH ×2 (09:51→21:56)
[2021-03-22 12:28] LABS: HIV INTERPRETATION NEGATIVE (NEGATIVE)
[2021-03-22] MEDS: THIAMINE HCL 100 MG TABLET (FP) PO SCH (21:53)
[2021-03-22] MEDS: traZODone HCL 50 MG TABLET (FP) PO SCH (21:53)
[2021-03-22] MEDS: MELATONIN 5 MG TABLETS PO PRN (21:55)
[2021-03-22] MEDS ORDERED: PT OWN MED DRAWER 7, Y5N ONE (21:56)
[2021-03-23] MEDS ORDERED: PT OWN MED DRAWER 7, Y5N ONE (08:48)
[2021-03-23] MEDS: LISINOPRIL 5 MG TABLET PO SCH (09:41)
[2021-03-23] MEDS: NICOTINE 7 MG/24 HOURS TOPICAL PATCH TD SCH (09:43)
[2021-03-23] MEDS: PRENATAL VITAMINS W/ FOLIC ACID TABLET (FP) PO SCH (09:43)
[2021-03-23] MEDS: TOLNAFTATE 1% CREAM 15 GM TUBE TP SCH ×2 (10:13→21:50)
[2021-03-23] MEDS: MELATONIN 5 MG TABLETS PO PRN (21:30)
[2021-03-23] MEDS: traZODone HCL 50 MG TABLET (FP) PO SCH (21:30)
[2021-03-23] MEDS: THIAMINE HCL 100 MG TABLET (FP) PO SCH (21:30)
[2021-03-24] MEDS: NICOTINE 7 MG/24 HOURS TOPICAL PATCH TD SCH (09:34)
[2021-03-24] MEDS: LISINOPRIL 5 MG TABLET PO SCH (09:34)
[2021-03-24] MEDS: PRENATAL VITAMINS W/ FOLIC ACID TABLET (FP) PO SCH (09:34)
[2021-03-24] MEDS: TOLNAFTATE 1% CREAM 15 GM TUBE TP SCH ×2 (09:34→21:03)
[2021-03-24] MEDS: MINERAL OIL/PETROLAT/WATER TOPICAL CREAM 113 GM JAR TP SCH (10:04)
[2021-03-24] MEDS ORDERED: QUEtiapine FUMARATE 100 MG TABLET (FP) PO ONE (10:11)
[2021-03-24] MEDS ORDERED: PT OWN MED DRAWER 7, Y5N ONE ×2 (10:11→20:01)
[2021-03-24] MEDS: THIAMINE HCL 100 MG TABLET (FP) PO SCH (21:02)
[2021-03-24] MEDS ORDERED: QUEtiapine FUMARATE 200 MG TABLET PO SCH (22:00)
[2021-03-25] MEDS: QUEtiapine FUMARATE 200 MG TABLET PO SCH (09:40)
[2021-03-25] MEDS: LISINOPRIL 5 MG TABLET PO SCH (09:40)
[2021-03-25] MEDS: PRENATAL VITAMINS W/ FOLIC ACID TABLET (FP) PO SCH (09:41)
[2021-03-25] MEDS: MINERAL OIL/PETROLAT/WATER TOPICAL CREAM 113 GM JAR TP SCH (09:41)
[2021-03-25] MEDS: TOLNAFTATE 1% CREAM 15 GM TUBE TP SCH ×2 (09:41→21:07)
[2021-03-25] MEDS: NICOTINE 7 MG/24 HOURS TOPICAL PATCH TD SCH (09:41)
[2021-03-25] MEDS: QUEtiapine FUMARATE 300 MG TABLET PO SCH (21:07)
[2021-03-25] MEDS: THIAMINE HCL 100 MG TABLET (FP) PO SCH (21:07)
[2021-03-25] MEDS ORDERED: QUEtiapine FUMARATE 200 MG TABLET PO SCH (22:00)
[2021-03-26] MEDS: LISINOPRIL 5 MG TABLET PO SCH (09:34)
[2021-03-26] MEDS: QUEtiapine FUMARATE 200 MG TABLET PO SCH (09:34)
[2021-03-26] MEDS: TOLNAFTATE 1% CREAM 15 GM TUBE TP SCH ×2 (09:35→21:13)
[2021-03-26] MEDS: PRENATAL VITAMINS W/ FOLIC ACID TABLET (FP) PO SCH (09:35)
[2021-03-26] MEDS: MINERAL OIL/PETROLAT/WATER TOPICAL CREAM 113 GM JAR TP SCH (09:35)
[2021-03-26] MEDS: NICOTINE 7 MG/24 HOURS TOPICAL PATCH TD SCH (09:36)
[2021-03-26] MEDS: QUEtiapine FUMARATE 300 MG TABLET PO SCH (21:06)
[2021-03-26] MEDS: THIAMINE HCL 100 MG TABLET (FP) PO SCH (21:06)
[2021-03-26] MEDS ORDERED: PT OWN MED DRAWER 7, Y5N ONE (21:13)
[2021-03-27] MEDS ORDERED: PT OWN MED DRAWER 7, Y5N ONE (08:09)
[2021-03-27] MEDS: LISINOPRIL 5 MG TABLET PO SCH (09:52)
[2021-03-27] MEDS: QUEtiapine FUMARATE 200 MG TABLET PO SCH (09:52)
[2021-03-27] MEDS: MINERAL OIL/PETROLAT/WATER TOPICAL CREAM 113 GM JAR TP SCH (09:53)
[2021-03-27] MEDS: PRENATAL VITAMINS W/ FOLIC ACID TABLET (FP) PO SCH (09:53)
[2021-03-27] MEDS: TOLNAFTATE 1% CREAM 15 GM TUBE TP SCH ×2 (09:53→21:42)
[2021-03-27] MEDS: NICOTINE 7 MG/24 HOURS TOPICAL PATCH TD SCH (09:53)
[2021-03-27] MEDS: THIAMINE HCL 100 MG TABLET (FP) PO SCH (21:41)
[2021-03-27] MEDS: QUEtiapine FUMARATE 300 MG TABLET PO SCH (21:41)
[2021-03-28] MEDS: LISINOPRIL 5 MG TABLET PO SCH (09:56)
[2021-03-28] MEDS: PRENATAL VITAMINS W/ FOLIC ACID TABLET (FP) PO SCH (09:57)
[2021-03-28] MEDS: QUEtiapine FUMARATE 200 MG TABLET PO SCH (09:57)
[2021-03-28] MEDS: NICOTINE 7 MG/24 HOURS TOPICAL PATCH TD SCH (09:57)
[2021-03-28] MEDS: MINERAL OIL/PETROLAT/WATER TOPICAL CREAM 113 GM JAR TP SCH (09:58)
[2021-03-28] MEDS: TOLNAFTATE 1% CREAM 15 GM TUBE TP SCH ×2 (09:58→21:09)
[2021-03-28] MEDS ORDERED: PT OWN MED DRAWER 7, Y5N ONE ×2 (10:13→19:31)
[2021-03-28] MEDS: THIAMINE HCL 100 MG TABLET (FP) PO SCH (21:08)
[2021-03-28] MEDS: QUEtiapine FUMARATE 300 MG TABLET PO SCH (21:08)
[2021-03-29] MEDS: NICOTINE 7 MG/24 HOURS TOPICAL PATCH TD SCH (09:37)
[2021-03-29] MEDS: PRENATAL VITAMINS W/ FOLIC ACID TABLET (FP) PO SCH (09:37)
[2021-03-29] MEDS: LISINOPRIL 5 MG TABLET PO SCH (09:37)
[2021-03-29] MEDS: MINERAL OIL/PETROLAT/WATER TOPICAL CREAM 113 GM JAR TP SCH (09:37)
[2021-03-29] MEDS: QUEtiapine FUMARATE 200 MG TABLET PO SCH (09:38)
[2021-03-29] MEDS: TOLNAFTATE 1% CREAM 15 GM TUBE TP SCH ×2 (09:44→21:11)
[2021-03-29] MEDS: QUEtiapine FUMARATE 300 MG TABLET PO SCH (21:10)
[2021-03-29] MEDS: THIAMINE HCL 100 MG TABLET (FP) PO SCH (21:10)
[2021-03-30] MEDS: QUEtiapine FUMARATE 200 MG TABLET PO SCH (09:42)
[2021-03-30] MEDS: TOLNAFTATE 1% CREAM 15 GM TUBE TP SCH ×2 (09:42→21:17)
[2021-03-30] MEDS: MINERAL OIL/PETROLAT/WATER TOPICAL CREAM 113 GM JAR TP SCH (09:42)
[2021-03-30] MEDS: PRENATAL VITAMINS W/ FOLIC ACID TABLET (FP) PO SCH (09:42)
[2021-03-30] MEDS: LISINOPRIL 5 MG TABLET PO SCH (09:43)
[2021-03-30] MEDS: NICOTINE 7 MG/24 HOURS TOPICAL PATCH TD SCH (09:43)
[2021-03-30] MEDS: QUEtiapine FUMARATE 300 MG TABLET PO SCH (21:17)
[2021-03-30] MEDS: THIAMINE HCL 100 MG TABLET (FP) PO SCH (21:17)
[2021-03-31] MEDS ORDERED: PT OWN MED DRAWER 7, Y5N ONE (09:01)
[2021-03-31] MEDS: MINERAL OIL/PETROLAT/WATER TOPICAL CREAM 113 GM JAR TP SCH (09:36)
[2021-03-31] MEDS: PRENATAL VITAMINS W/ FOLIC ACID TABLET (FP) PO SCH (09:36)
[2021-03-31] MEDS: NICOTINE 7 MG/24 HOURS TOPICAL PATCH TD SCH (09:36)
[2021-03-31] MEDS: LISINOPRIL 5 MG TABLET PO SCH (09:37)
[2021-03-31] MEDS: QUEtiapine FUMARATE 200 MG TABLET PO SCH (09:37)
[2021-03-31] MEDS ORDERED: FLUTICASONE PROP 0.05% 16 GM NASAL SPRAY NS SCH (10:00)
[2021-03-31] MEDS: TAMSULOSIN HCL 0.4 MG CAP PO SCH (11:04)
[2021-03-31] MEDS: TOLNAFTATE 1% CREAM 15 GM TUBE TP SCH ×2 (11:29→21:30)
[2021-03-31] MEDS: THIAMINE HCL 100 MG TABLET (FP) PO SCH (21:30)
[2021-03-31] MEDS: QUEtiapine FUMARATE 300 MG TABLET PO SCH (22:47)
[2021-04-01] MEDS: LISINOPRIL 5 MG TABLET PO SCH (09:29)
[2021-04-01] MEDS: TAMSULOSIN HCL 0.4 MG CAP PO SCH (09:29)
[2021-04-01] MEDS: QUEtiapine FUMARATE 200 MG TABLET PO SCH (09:29)
[2021-04-01] MEDS: MINERAL OIL/PETROLAT/WATER TOPICAL CREAM 113 GM JAR TP SCH (09:30)
[2021-04-01] MEDS: PRENATAL VITAMINS W/ FOLIC ACID TABLET (FP) PO SCH (09:30)
[2021-04-01] MEDS: NICOTINE 7 MG/24 HOURS TOPICAL PATCH TD SCH (09:30)
[2021-04-01] MEDS: TOLNAFTATE 1% CREAM 15 GM TUBE TP SCH ×2 (09:33→21:21)
[2021-04-01] MEDS: THIAMINE HCL 100 MG TABLET (FP) PO SCH (21:20)
[2021-04-01] MEDS: QUEtiapine FUMARATE 300 MG TABLET PO SCH (21:20)
[2021-04-01] MEDS ORDERED: PT OWN MED DRAWER 7, Y5N ONE (21:21)
[2021-04-02] MEDS: TAMSULOSIN HCL 0.4 MG CAP PO SCH (09:41)
[2021-04-02] MEDS: LISINOPRIL 5 MG TABLET PO SCH (09:41)
[2021-04-02] MEDS: PRENATAL VITAMINS W/ FOLIC ACID TABLET (FP) PO SCH (09:42)
[2021-04-02] MEDS: NICOTINE 7 MG/24 HOURS TOPICAL PATCH TD SCH (09:42)
[2021-04-02] MEDS: MINERAL OIL/PETROLAT/WATER TOPICAL CREAM 113 GM JAR TP SCH (09:42)
[2021-04-02] MEDS: QUEtiapine FUMARATE 200 MG TABLET PO SCH (09:43)
[2021-04-02] MEDS: TOLNAFTATE 1% CREAM 15 GM TUBE TP SCH ×2 (09:43→21:20)
[2021-04-02] MEDS: THIAMINE HCL 100 MG TABLET (FP) PO SCH (21:19)
[2021-04-02] MEDS: QUEtiapine FUMARATE 300 MG TABLET PO SCH (21:20)
[2021-04-03] MEDS: LISINOPRIL 5 MG TABLET PO SCH (09:36)
[2021-04-03] MEDS: MINERAL OIL/PETROLAT/WATER TOPICAL CREAM 113 GM JAR TP SCH (09:36)
[2021-04-03] MEDS: NICOTINE 7 MG/24 HOURS TOPICAL PATCH TD SCH (09:36)
[2021-04-03] MEDS: PRENATAL VITAMINS W/ FOLIC ACID TABLET (FP) PO SCH (09:36)
[2021-04-03] MEDS: TAMSULOSIN HCL 0.4 MG CAP PO SCH (09:36)
[2021-04-03] MEDS: TOLNAFTATE 1% CREAM 15 GM TUBE TP SCH ×2 (09:37→21:18)
[2021-04-03] MEDS: QUEtiapine FUMARATE 200 MG TABLET PO SCH (09:37)
[2021-04-03] MEDS ORDERED: PT OWN MED DRAWER 7, Y5N ONE (20:10)
[2021-04-03] MEDS: THIAMINE HCL 100 MG TABLET (FP) PO SCH (21:18)
[2021-04-03] MEDS: QUEtiapine FUMARATE 300 MG TABLET PO SCH (21:18)
[2021-04-04] MEDS: PRENATAL VITAMINS W/ FOLIC ACID TABLET (FP) PO SCH (09:54)
[2021-04-04] MEDS: LISINOPRIL 5 MG TABLET PO SCH (09:54)
[2021-04-04] MEDS: TOLNAFTATE 1% CREAM 15 GM TUBE TP SCH ×2 (09:54→21:18)
[2021-04-04] MEDS: NICOTINE 7 MG/24 HOURS TOPICAL PATCH TD SCH (09:54)
[2021-04-04] MEDS: QUEtiapine FUMARATE 200 MG TABLET PO SCH (09:55)
[2021-04-04] MEDS: TAMSULOSIN HCL 0.4 MG CAP PO SCH (09:55)
[2021-04-04] MEDS: MINERAL OIL/PETROLAT/WATER TOPICAL CREAM 113 GM JAR TP SCH (09:57)
[2021-04-04] MEDS: THIAMINE HCL 100 MG TABLET (FP) PO SCH (21:18)
[2021-04-04] MEDS: QUEtiapine FUMARATE 300 MG TABLET PO SCH (21:18)
[2021-04-05 06:47] VITALS: BP 138/88; PULSE 92; TEMP 97.3
[2021-04-05] MEDS: TAMSULOSIN HCL 0.4 MG CAP PO SCH (08:38)
== END 2021-04-05 09:03 | disposition home or self-care (01) | DRG 772 ==
LOC: YASAS 11:21 → Y3E 16:33
PROVIDERS: ADMIT Allergy & Immunology; ATTEND Allergy & Immunology
PROC: HZ42ZZZ Group Counseling for Substance Abuse Treatment, Cognitive-Behavioral (ICD-10-PCS; principal; 2021-03-15)
DX: F10.20 Alcohol dependence, uncomplicated (principal); F14.20 Cocaine dependence, uncomplicated; F17.210 Nicotine dependence, cigarettes, uncomplicated; F31.9 Bipolar disorder, unspecified; F20.9 Schizophrenia, unspecified; F19.282 Other psychoactive substance dependence with psychoactive substance-induced sleep disorder; F19.24 Other psychoactive substance dependence with psychoactive substance-induced mood disorder; F51.01 Primary insomnia; F90.9 Attention-deficit hyperactivity disorder, unspecified type; I10 Essential (primary) hypertension; N40.1 Benign prostatic hyperplasia with lower urinary tract symptoms; R35.1 Nocturia; R33.8 Other retention of urine
CPT/HCPCS: 36415; 80053; 81003; 85027; 86780; 86803; 87389; 87522; C9803; U0003; U0005

== ENCOUNTER 2021-08-22 10:56 | Inpatient (IN) | payer OTHER ==
[2021-08-22] MEDS ORDERED: ACETAMINOPHEN 325 MG TABLET (FP) PO PRN ×2 (12:22)
[2021-08-22] MEDS ORDERED: MAGNESIUM HYDROX 2400MG/30ML ORAL SUSPENSION 30 ML CUP PO PRN (12:22)
[2021-08-22] MEDS ORDERED: MENTHOL/PHENOL 1 EACH UD MM PRN (12:22)
[2021-08-22] MEDS ORDERED: MAG HYDROX/AL HYDROX/SIMETH 30 ML UNIT-DOSE CUP PO PRN (12:22)
[2021-08-22] MEDS ORDERED: MAGNESIUM CITRATE 300 ML BOTTLE PO PRN (12:22)
[2021-08-22] MEDS ORDERED: IBUPROFEN 400 MG TABLET (FP) PO PRN (12:22)
[2021-08-22] MEDS ORDERED: METHOCARBAMOL 500 MG TABLET PO PRN (12:22)
[2021-08-22] MEDS ORDERED: NICOTINE 10 MG CARTRIDGE (INHALER) IH PRN (12:22)
[2021-08-22] MEDS ORDERED: BISMUTH SUBSALICYLATE 524 MG/30 ML PO PRN (12:22)
[2021-08-22] MEDS ORDERED: ONDANSETRON *ODT* 4 MG TABLET SL PRN (12:22)
[2021-08-22] MEDS ORDERED: chlordiazePOXIDE HCL 25 MG CAPSULE PO PRN (12:22)
[2021-08-22] MEDS ORDERED: LOPERAMIDE HCL 2 MG CAPSULE PO PRN (12:22)
[2021-08-22 13:08] VITALS: BMI 32.8
[2021-08-22] MEDS: hydrOXYzine PAMOATE 25 MG CAPSULE (FP) PO SCH ×3 (15:24→22:44)
[2021-08-22] MEDS: chlordiazePOXIDE HCL 25 MG CAPSULE PO SCH ×2 (17:35→22:44)
[2021-08-22 17:42] LABS: BLOOD UREA NITROGEN 6.7 mg/dL (7-18); CALCIUM 9.1 mg/dL (8.5-10.1)
[2021-08-22 17:46] LABS: CREATININE 1.1 mg/dL (0.55-1.3)
[2021-08-22 17:47] LABS: BILIRUBIN,TOTAL 0.6 mg/dL (0.2-1); TOT PROT 7.8 g/dl (6.4-8.2)
[2021-08-22 17:58] LABS: HEMATOCRIT 41.6 % (35.4-49); HEMOGLOBIN 13.6 GM/dL (11.7-16.9); MCH 26.4 pg (25.7-33.7); MCHC 32.7 g/dl (32.0-35.9); MEAN CELL VOLUME 80.8 fl (80-96); PLATELET COUNT 212 10^3/uL (134-434); RBC 5.15 M/mm3 (4.00-5.60); RDW 15.2 % (11.9-15.9); WHITE BLOOD COUNT 6.6 K/mm3 (4.0-10.0)
[2021-08-22] MEDS: MELATONIN 5 MG TABLETS PO SCH (22:44)
[2021-08-22] MEDS: THIAMINE HCL 100 MG TABLET (FP) PO SCH (22:44)
[2021-08-23 00:17] LABS: URINE APPEARANCE CLEAR; URINE BILIRUBIN NEGATIVE (NEGATIVE); URINE COLOR YELLOW; URINE GLUCOSE (UA) NEGATIVE (NEGATIVE); URINE KETONE NEGATIVE (NEGATIVE); URINE LEUK ESTERASE NEGATIVE (NEGATIVE); URINE NITRITE NEGATIVE (NEGATIVE); URINE PROTEIN NEGATIVE (NEGATIVE)
[2021-08-23] MEDS: chlordiazePOXIDE HCL 25 MG CAPSULE PO SCH ×4 (06:00→22:11)
[2021-08-23] MEDS: hydrOXYzine PAMOATE 25 MG CAPSULE (FP) PO SCH ×5 (06:30→23:46)
[2021-08-23] MEDS ORDERED: POTASSIUM CHLORIDE TABS 20 MEQ TABLET.ER (FP) PO ONE (10:15)
[2021-08-23] MEDS: PRENATAL VITAMINS W/ FOLIC ACID TABLET (FP) PO SCH (10:39)
[2021-08-23] MEDS: DOXYCYCLINE HYCLATE 100 MG TABLET PO SCH ×2 (12:42→17:54)
[2021-08-23] MEDS: CLOTRIMAZOLE 1% CREAM TP SCH ×2 (13:29→22:12)
[2021-08-23] MEDS: QUEtiapine FUMARATE 200 MG TABLET PO SCH (22:11)
[2021-08-23] MEDS: THIAMINE HCL 100 MG TABLET (FP) PO SCH (22:11)
[2021-08-23] MEDS: MELATONIN 5 MG TABLETS PO SCH (22:14)
[2021-08-24] MEDS: chlordiazePOXIDE HCL 25 MG CAPSULE PO SCH ×4 (05:35→23:06)
[2021-08-24] MEDS: hydrOXYzine PAMOATE 25 MG CAPSULE (FP) PO SCH ×5 (05:35→23:05)
[2021-08-24] MEDS: DOXYCYCLINE HYCLATE 100 MG TABLET PO SCH ×2 (10:03→18:51)
[2021-08-24] MEDS: MINERAL OIL/PETROLAT/WATER TOPICAL CREAM 113 GM JAR TP SCH (10:03)
[2021-08-24] MEDS: CLOTRIMAZOLE 1% CREAM TP SCH ×2 (10:04→22:51)
[2021-08-24] MEDS: PRENATAL VITAMINS W/ FOLIC ACID TABLET (FP) PO SCH (10:04)
[2021-08-24] MEDS: THIAMINE HCL 100 MG TABLET (FP) PO SCH (23:05)
[2021-08-24] MEDS: QUEtiapine FUMARATE 200 MG TABLET PO SCH (23:05)
[2021-08-24] MEDS: MELATONIN 5 MG TABLETS PO SCH (23:05)
[2021-08-25] MEDS ORDERED: chlordiazePOXIDE HCL 10 MG CAPSULE PO PRN
[2021-08-25] MEDS: chlordiazePOXIDE HCL 10 MG CAPSULE PO SCH ×4 (06:35→22:30)
[2021-08-25] MEDS: hydrOXYzine PAMOATE 25 MG CAPSULE (FP) PO SCH ×5 (06:35→22:29)
[2021-08-25 10:07] LABS: SARS-CoV-2 NAA Not Detected (Not Detected)
[2021-08-25] MEDS: CLOTRIMAZOLE 1% CREAM TP SCH ×2 (10:28→22:30)
[2021-08-25] MEDS: PRENATAL VITAMINS W/ FOLIC ACID TABLET (FP) PO SCH (10:28)
[2021-08-25] MEDS: DOXYCYCLINE HYCLATE 100 MG TABLET PO SCH ×2 (10:29→18:29)
[2021-08-25] MEDS: TOLNAFTATE 1% CREAM 15 GM TUBE TP SCH ×2 (14:49→22:31)
[2021-08-25] MEDS: MINERAL OIL/PETROLAT/WATER TOPICAL CREAM 113 GM JAR TP SCH (14:49)
[2021-08-25] MEDS: QUEtiapine FUMARATE 200 MG TABLET PO SCH (22:29)
[2021-08-25] MEDS: THIAMINE HCL 100 MG TABLET (FP) PO SCH (22:29)
[2021-08-25] MEDS: MELATONIN 5 MG TABLETS PO SCH (22:29)
[2021-08-26] MEDS: hydrOXYzine PAMOATE 25 MG CAPSULE (FP) PO SCH ×5 (06:00→22:16)
[2021-08-26] MEDS: chlordiazePOXIDE HCL 10 MG CAPSULE PO SCH ×2 (06:00→17:33)
[2021-08-26] MEDS: PRENATAL VITAMINS W/ FOLIC ACID TABLET (FP) PO SCH (10:48)
[2021-08-26] MEDS: DOXYCYCLINE HYCLATE 100 MG TABLET PO SCH ×2 (10:48→17:32)
[2021-08-26] MEDS: MINERAL OIL/PETROLAT/WATER TOPICAL CREAM 113 GM JAR TP SCH (10:50)
[2021-08-26] MEDS: CLOTRIMAZOLE 1% CREAM TP SCH ×2 (10:50→22:18)
[2021-08-26] MEDS: TOLNAFTATE 1% CREAM 15 GM TUBE TP SCH ×2 (10:50→22:16)
[2021-08-26] MEDS: THIAMINE HCL 100 MG TABLET (FP) PO SCH (22:16)
[2021-08-26] MEDS: QUEtiapine FUMARATE 200 MG TABLET PO SCH (22:16)
[2021-08-26] MEDS: MELATONIN 5 MG TABLETS PO SCH (22:18)
[2021-08-27] MEDS ORDERED: chlordiazePOXIDE HCL 10 MG CAPSULE PO ONE (05:00)
[2021-08-27] MEDS: hydrOXYzine PAMOATE 25 MG CAPSULE (FP) PO SCH ×5 (05:49→22:34)
[2021-08-27] MEDS: PRENATAL VITAMINS W/ FOLIC ACID TABLET (FP) PO SCH (10:22)
[2021-08-27] MEDS: DOXYCYCLINE HYCLATE 100 MG TABLET PO SCH ×2 (10:22→17:46)
[2021-08-27] MEDS: MINERAL OIL/PETROLAT/WATER TOPICAL CREAM 113 GM JAR TP SCH (10:22)
[2021-08-27] MEDS: CLOTRIMAZOLE 1% CREAM TP SCH ×2 (10:23→22:37)
[2021-08-27] MEDS: TOLNAFTATE 1% CREAM 15 GM TUBE TP SCH ×2 (10:51→22:36)
[2021-08-27] MEDS: THIAMINE HCL 100 MG TABLET (FP) PO SCH (22:34)
[2021-08-27] MEDS: QUEtiapine FUMARATE 200 MG TABLET PO SCH (22:35)
[2021-08-27] MEDS: MELATONIN 5 MG TABLETS PO SCH (22:37)
[2021-08-28] MEDS: hydrOXYzine PAMOATE 25 MG CAPSULE (FP) PO SCH ×2 (05:54→10:16)
[2021-08-28 10:07] VITALS: BP 144/86; PULSE 102; TEMP 97.7
[2021-08-28] MEDS: DOXYCYCLINE HYCLATE 100 MG TABLET PO SCH (10:15)
[2021-08-28] MEDS: CLOTRIMAZOLE 1% CREAM TP SCH (10:15)
[2021-08-28] MEDS: TOLNAFTATE 1% CREAM 15 GM TUBE TP SCH (10:15)
[2021-08-28] MEDS: MINERAL OIL/PETROLAT/WATER TOPICAL CREAM 113 GM JAR TP SCH (10:15)
[2021-08-28] MEDS: PRENATAL VITAMINS W/ FOLIC ACID TABLET (FP) PO SCH (10:15)
== END 2021-08-28 12:58 | disposition other institution (70) | DRG 774 ==
LOC: YASAS 10:56 → Y6N 14:31
PROVIDERS: ADMIT Allergy & Immunology; ATTEND Allergy & Immunology
PROC: HZ2ZZZZ Detoxification Services for Substance Abuse Treatment (ICD-10-PCS; principal; 2021-08-22)
DX: F10.230 Alcohol dependence with withdrawal, uncomplicated (principal); F14.20 Cocaine dependence, uncomplicated; F17.210 Nicotine dependence, cigarettes, uncomplicated; F19.280 Other psychoactive substance dependence with psychoactive substance-induced anxiety disorder; F19.282 Other psychoactive substance dependence with psychoactive substance-induced sleep disorder; F20.9 Schizophrenia, unspecified; E87.6 Hypokalemia; E78.5 Hyperlipidemia, unspecified; I10 Essential (primary) hypertension; L03.114 Cellulitis of left upper limb
CPT/HCPCS: 36415; 80053; 81003; 84132; 85027; 86780; 87086; 87811; C9803-CS; U0003; U0005

== ENCOUNTER 2021-08-28 13:02 | Inpatient (IN) | payer OTHER ==
[2021-08-28] MEDS ORDERED: ACETAMINOPHEN 325 MG TABLET (FP) PO PRN (14:50)
[2021-08-28] MEDS ORDERED: MAGNESIUM HYDROX 2400MG/30ML ORAL SUSPENSION 30 ML CUP PO PRN (14:50)
[2021-08-28] MEDS ORDERED: LOPERAMIDE HCL 2 MG CAPSULE PO PRN (14:50)
[2021-08-28] MEDS ORDERED: NICOTINE 10 MG CARTRIDGE (INHALER) IH PRN (14:50)
[2021-08-28] MEDS ORDERED: MAGNESIUM CITRATE 300 ML BOTTLE PO PRN (14:50)
[2021-08-28] MEDS ORDERED: hydrOXYzine PAMOATE 25 MG CAPSULE (FP) PO PRN (14:50)
[2021-08-28] MEDS ORDERED: P-EPHED 60MG/TRIPROLIDI 2.5MG TABLET PO PRN (14:50)
[2021-08-28] MEDS ORDERED: MAG HYDROX/AL HYDROX/SIMETH 30 ML UNIT-DOSE CUP PO PRN (14:50)
[2021-08-28] MEDS ORDERED: MENTHOL/PHENOL 1 EACH UD MM PRN (14:50)
[2021-08-28] MEDS ORDERED: guaiFENesin 200 MG/10 ML 10 ML UNIT-DOSE CUPS PO PRN (14:50)
[2021-08-28] MEDS ORDERED: IBUPROFEN 400 MG TABLET (FP) PO PRN (14:50)
[2021-08-28] MEDS: DOXYCYCLINE HYCLATE 100 MG TABLET PO SCH (17:23)
[2021-08-28] MEDS: MELATONIN 5 MG TABLETS PO SCH (21:19)
[2021-08-28] MEDS: QUEtiapine FUMARATE 200 MG TABLET PO SCH (21:20)
[2021-08-28] MEDS: THIAMINE HCL 100 MG TABLET (FP) PO SCH (21:20)
[2021-08-28] MEDS: MINERAL OIL/PETROLAT/WATER TOPICAL CREAM 113 GM JAR TP SCH (21:20)
[2021-08-28] MEDS ORDERED: DOXYCYCLINE HYCLATE 100 MG CAPSULE PO SCH (22:00)
[2021-08-29] MEDS: DOXYCYCLINE HYCLATE 100 MG TABLET PO SCH ×2 (06:21→17:27)
[2021-08-29] MEDS: PRENATAL VITAMINS W/ FOLIC ACID TABLET (FP) PO SCH (10:05)
[2021-08-29] MEDS: MINERAL OIL/PETROLAT/WATER TOPICAL CREAM 113 GM JAR TP SCH ×2 (10:06→21:33)
[2021-08-29] MEDS: QUEtiapine FUMARATE 100 MG TABLET (FP) PO SCH (10:06)
[2021-08-29] MEDS: MELATONIN 5 MG TABLETS PO SCH (21:32)
[2021-08-29] MEDS: THIAMINE HCL 100 MG TABLET (FP) PO SCH (21:32)
[2021-08-29] MEDS: QUEtiapine FUMARATE 200 MG TABLET PO SCH (21:32)
[2021-08-30] MEDS: DOXYCYCLINE HYCLATE 100 MG TABLET PO SCH (06:27)
[2021-08-30] MEDS: PRENATAL VITAMINS W/ FOLIC ACID TABLET (FP) PO SCH (09:55)
[2021-08-30] MEDS: MINERAL OIL/PETROLAT/WATER TOPICAL CREAM 113 GM JAR TP SCH ×2 (09:55→21:07)
[2021-08-30] MEDS: QUEtiapine FUMARATE 100 MG TABLET (FP) PO SCH (09:55)
[2021-08-30] MEDS: QUEtiapine FUMARATE 200 MG TABLET PO SCH (21:06)
[2021-08-30] MEDS: THIAMINE HCL 100 MG TABLET (FP) PO SCH (21:06)
[2021-08-30] MEDS: MELATONIN 5 MG TABLETS PO SCH (21:07)
[2021-08-31] MEDS: QUEtiapine FUMARATE 100 MG TABLET (FP) PO SCH (10:07)
[2021-08-31] MEDS: PRENATAL VITAMINS W/ FOLIC ACID TABLET (FP) PO SCH (10:07)
[2021-08-31] MEDS: MINERAL OIL/PETROLAT/WATER TOPICAL CREAM 113 GM JAR TP SCH ×2 (11:14→21:32)
[2021-08-31] MEDS: THIAMINE HCL 100 MG TABLET (FP) PO SCH (21:31)
[2021-08-31] MEDS: QUEtiapine FUMARATE 200 MG TABLET PO SCH (21:32)
[2021-08-31] MEDS: MELATONIN 5 MG TABLETS PO SCH (21:32)
[2021-09-01] MEDS: PRENATAL VITAMINS W/ FOLIC ACID TABLET (FP) PO SCH (10:08)
[2021-09-01] MEDS: QUEtiapine FUMARATE 100 MG TABLET (FP) PO SCH (10:08)
[2021-09-01] MEDS: MINERAL OIL/PETROLAT/WATER TOPICAL CREAM 113 GM JAR TP SCH ×2 (10:08→21:14)
[2021-09-01 16:08] LABS: SARS-CoV-2 NAA Not Detected (Not Detected)
[2021-09-01] MEDS: MELATONIN 5 MG TABLETS PO SCH (21:14)
[2021-09-01] MEDS: QUEtiapine FUMARATE 200 MG TABLET PO SCH (21:14)
[2021-09-01] MEDS: THIAMINE HCL 100 MG TABLET (FP) PO SCH (21:15)
[2021-09-02] MEDS: MINERAL OIL/PETROLAT/WATER TOPICAL CREAM 113 GM JAR TP SCH ×2 (09:47→21:40)
[2021-09-02] MEDS: PRENATAL VITAMINS W/ FOLIC ACID TABLET (FP) PO SCH (09:47)
[2021-09-02] MEDS: QUEtiapine FUMARATE 100 MG TABLET (FP) PO SCH (09:47)
[2021-09-02] MEDS: QUEtiapine FUMARATE 200 MG TABLET PO SCH (21:39)
[2021-09-02] MEDS: THIAMINE HCL 100 MG TABLET (FP) PO SCH (21:39)
[2021-09-02] MEDS: MELATONIN 5 MG TABLETS PO SCH (21:40)
[2021-09-03] MEDS: MINERAL OIL/PETROLAT/WATER TOPICAL CREAM 113 GM JAR TP SCH ×2 (09:16→21:22)
[2021-09-03] MEDS: QUEtiapine FUMARATE 100 MG TABLET (FP) PO SCH (09:16)
[2021-09-03] MEDS: PRENATAL VITAMINS W/ FOLIC ACID TABLET (FP) PO SCH (09:16)
[2021-09-03] MEDS: MELATONIN 5 MG TABLETS PO SCH (21:21)
[2021-09-03] MEDS: QUEtiapine FUMARATE 200 MG TABLET PO SCH (21:22)
[2021-09-03] MEDS: THIAMINE HCL 100 MG TABLET (FP) PO SCH (21:22)
[2021-09-04] MEDS: QUEtiapine FUMARATE 100 MG TABLET (FP) PO SCH (10:24)
[2021-09-04] MEDS: PRENATAL VITAMINS W/ FOLIC ACID TABLET (FP) PO SCH (10:24)
[2021-09-04] MEDS: MINERAL OIL/PETROLAT/WATER TOPICAL CREAM 113 GM JAR TP SCH ×2 (10:24→21:12)
[2021-09-04] MEDS: THIAMINE HCL 100 MG TABLET (FP) PO SCH (21:11)
[2021-09-04] MEDS: MELATONIN 5 MG TABLETS PO SCH (21:11)
[2021-09-04] MEDS: QUEtiapine FUMARATE 200 MG TABLET PO SCH (21:11)
[2021-09-05] MEDS: PRENATAL VITAMINS W/ FOLIC ACID TABLET (FP) PO SCH (09:04)
[2021-09-05] MEDS: QUEtiapine FUMARATE 100 MG TABLET (FP) PO SCH (09:04)
[2021-09-05] MEDS: MINERAL OIL/PETROLAT/WATER TOPICAL CREAM 113 GM JAR TP SCH ×2 (09:05→21:25)
[2021-09-05] MEDS: QUEtiapine FUMARATE 200 MG TABLET PO SCH (21:25)
[2021-09-05] MEDS: MELATONIN 5 MG TABLETS PO SCH (21:25)
[2021-09-05] MEDS: THIAMINE HCL 100 MG TABLET (FP) PO SCH (21:25)
[2021-09-06] MEDS: PRENATAL VITAMINS W/ FOLIC ACID TABLET (FP) PO SCH (09:40)
[2021-09-06] MEDS: QUEtiapine FUMARATE 100 MG TABLET (FP) PO SCH (09:40)
[2021-09-06] MEDS: MINERAL OIL/PETROLAT/WATER TOPICAL CREAM 113 GM JAR TP SCH ×2 (09:41→21:04)
[2021-09-06] MEDS ORDERED: TOLNAFTATE 1% POWDER 45 GM POW TP SCH (10:00)
[2021-09-06] MEDS: TOLNAFTATE 1% CREAM 15 GM TUBE TP SCH ×2 (14:18→21:04)
[2021-09-06] MEDS: THIAMINE HCL 100 MG TABLET (FP) PO SCH (21:03)
[2021-09-06] MEDS: MELATONIN 5 MG TABLETS PO SCH (21:04)
[2021-09-06] MEDS: QUEtiapine FUMARATE 200 MG TABLET PO SCH (21:04)
[2021-09-07] MEDS: PRENATAL VITAMINS W/ FOLIC ACID TABLET (FP) PO SCH (09:58)
[2021-09-07] MEDS: QUEtiapine FUMARATE 100 MG TABLET (FP) PO SCH (09:58)
[2021-09-07] MEDS: MINERAL OIL/PETROLAT/WATER TOPICAL CREAM 113 GM JAR TP SCH ×2 (09:58→21:21)
[2021-09-07] MEDS: TOLNAFTATE 1% CREAM 15 GM TUBE TP SCH ×2 (09:59→21:20)
[2021-09-07] MEDS: THIAMINE HCL 100 MG TABLET (FP) PO SCH (21:19)
[2021-09-07] MEDS: QUEtiapine FUMARATE 200 MG TABLET PO SCH (21:20)
[2021-09-07] MEDS: MELATONIN 5 MG TABLETS PO SCH (21:21)
[2021-09-08] MEDS ORDERED: cloNIDine HCL 0.1 MG TABLET PO ONE (07:41)
[2021-09-08] MEDS: TOLNAFTATE 1% CREAM 15 GM TUBE TP SCH ×2 (10:50→21:08)
[2021-09-08] MEDS: MINERAL OIL/PETROLAT/WATER TOPICAL CREAM 113 GM JAR TP SCH ×2 (10:50→21:07)
[2021-09-08] MEDS: PRENATAL VITAMINS W/ FOLIC ACID TABLET (FP) PO SCH (10:50)
[2021-09-08] MEDS: QUEtiapine FUMARATE 200 MG TABLET PO SCH ×2 (10:50→21:07)
[2021-09-08] MEDS: THIAMINE HCL 100 MG TABLET (FP) PO SCH (21:07)
[2021-09-08] MEDS: MELATONIN 5 MG TABLETS PO SCH (21:07)
[2021-09-09] MEDS: MINERAL OIL/PETROLAT/WATER TOPICAL CREAM 113 GM JAR TP SCH ×2 (10:24→21:53)
[2021-09-09] MEDS: TOLNAFTATE 1% CREAM 15 GM TUBE TP SCH ×2 (10:24→21:53)
[2021-09-09] MEDS: PRENATAL VITAMINS W/ FOLIC ACID TABLET (FP) PO SCH (10:24)
[2021-09-09] MEDS: QUEtiapine FUMARATE 200 MG TABLET PO SCH ×2 (10:24→21:52)
[2021-09-09] MEDS: THIAMINE HCL 100 MG TABLET (FP) PO SCH (21:52)
[2021-09-09] MEDS: MELATONIN 5 MG TABLETS PO SCH (21:52)
[2021-09-10] MEDS: PRENATAL VITAMINS W/ FOLIC ACID TABLET (FP) PO SCH (09:53)
[2021-09-10] MEDS: TOLNAFTATE 1% CREAM 15 GM TUBE TP SCH ×2 (09:53→21:07)
[2021-09-10] MEDS: QUEtiapine FUMARATE 200 MG TABLET PO SCH ×2 (09:53→21:06)
[2021-09-10] MEDS: MINERAL OIL/PETROLAT/WATER TOPICAL CREAM 113 GM JAR TP SCH ×2 (09:53→21:08)
[2021-09-10] MEDS: cloNIDine HCL 0.1 MG TABLET PO PRN ×2 (13:16→21:06)
[2021-09-10] MEDS: THIAMINE HCL 100 MG TABLET (FP) PO SCH (21:06)
[2021-09-10] MEDS: MELATONIN 5 MG TABLETS PO SCH (21:08)
[2021-09-11] MEDS: PRENATAL VITAMINS W/ FOLIC ACID TABLET (FP) PO SCH (10:45)
[2021-09-11] MEDS: QUEtiapine FUMARATE 200 MG TABLET PO SCH ×2 (10:46→21:09)
[2021-09-11] MEDS: TOLNAFTATE 1% CREAM 15 GM TUBE TP SCH ×2 (10:46→21:10)
[2021-09-11] MEDS: MINERAL OIL/PETROLAT/WATER TOPICAL CREAM 113 GM JAR TP SCH ×2 (10:46→21:09)
[2021-09-11 12:27] LABS: ALBUMIN 3.8 g/dl (3.4-5.0); CALCIUM 9.5 mg/dL (8.5-10.1)
[2021-09-11 12:28] LABS: BLOOD UREA NITROGEN 15.5 mg/dL (7-18)
[2021-09-11 12:30] LABS: CREATININE 0.9 mg/dL (0.55-1.3)
[2021-09-11 12:32] LABS: BILIRUBIN,TOTAL 0.6 mg/dL (0.2-1)
[2021-09-11 12:34] LABS: TOT PROT 7.8 g/dl (6.4-8.2)
[2021-09-11 12:36] LABS: CHOLESTEROL 347 mg/dL (50-200)
[2021-09-11 12:37] LABS: LDL CHOLESTEROL (ONLY SJRH) 226 mg/dL (5-100)
[2021-09-11 12:39] LABS: HDL CHOLESTEROL 54 mg/dL (40-60)
[2021-09-11 12:40] LABS: TRIGLYCERIDES 245 mg/dL (0-150)
[2021-09-11 13:08] LABS: HIV INTERPRETATION NEGATIVE (NEGATIVE)
[2021-09-11] MEDS: THIAMINE HCL 100 MG TABLET (FP) PO SCH (21:09)
[2021-09-11] MEDS: MELATONIN 5 MG TABLETS PO SCH (21:09)
[2021-09-12] MEDS: cloNIDine HCL 0.1 MG TABLET PO PRN (06:20)
[2021-09-12] MEDS: PRENATAL VITAMINS W/ FOLIC ACID TABLET (FP) PO SCH (09:02)
[2021-09-12] MEDS: QUEtiapine FUMARATE 200 MG TABLET PO SCH ×2 (09:02→21:25)
[2021-09-12] MEDS: MINERAL OIL/PETROLAT/WATER TOPICAL CREAM 113 GM JAR TP SCH ×2 (09:03→21:26)
[2021-09-12] MEDS: TOLNAFTATE 1% CREAM 15 GM TUBE TP SCH ×2 (09:03→21:26)
[2021-09-12] MEDS: THIAMINE HCL 100 MG TABLET (FP) PO SCH (21:25)
[2021-09-12] MEDS: MELATONIN 5 MG TABLETS PO SCH (21:26)
[2021-09-13] MEDS: cloNIDine HCL 0.1 MG TABLET PO PRN (06:18)
[2021-09-13] MEDS: PRENATAL VITAMINS W/ FOLIC ACID TABLET (FP) PO SCH (09:51)
[2021-09-13] MEDS: QUEtiapine FUMARATE 200 MG TABLET PO SCH ×2 (09:51→21:06)
[2021-09-13] MEDS: MINERAL OIL/PETROLAT/WATER TOPICAL CREAM 113 GM JAR TP SCH ×2 (09:52→21:07)
[2021-09-13] MEDS: TOLNAFTATE 1% CREAM 15 GM TUBE TP SCH ×2 (09:57→21:07)
[2021-09-13] MEDS: THIAMINE HCL 100 MG TABLET (FP) PO SCH (21:06)
[2021-09-13] MEDS: MELATONIN 5 MG TABLETS PO SCH (21:07)
[2021-09-14] MEDS: cloNIDine HCL 0.1 MG TABLET PO PRN (07:03)
[2021-09-14] MEDS: MINERAL OIL/PETROLAT/WATER TOPICAL CREAM 113 GM JAR TP SCH ×2 (10:22→21:37)
[2021-09-14] MEDS: QUEtiapine FUMARATE 200 MG TABLET PO SCH ×2 (10:22→21:37)
[2021-09-14] MEDS: TOLNAFTATE 1% CREAM 15 GM TUBE TP SCH ×2 (10:22→21:37)
[2021-09-14] MEDS: PRENATAL VITAMINS W/ FOLIC ACID TABLET (FP) PO SCH (10:22)
[2021-09-14] MEDS: THIAMINE HCL 100 MG TABLET (FP) PO SCH (21:37)
[2021-09-14] MEDS: MELATONIN 5 MG TABLETS PO SCH (21:37)
[2021-09-15] MEDS: QUEtiapine FUMARATE 200 MG TABLET PO SCH ×2 (09:44→21:00)
[2021-09-15] MEDS: PRENATAL VITAMINS W/ FOLIC ACID TABLET (FP) PO SCH (09:44)
[2021-09-15] MEDS: MINERAL OIL/PETROLAT/WATER TOPICAL CREAM 113 GM JAR TP SCH ×2 (09:44→21:00)
[2021-09-15] MEDS: TOLNAFTATE 1% CREAM 15 GM TUBE TP SCH ×2 (09:44→21:00)
[2021-09-15] MEDS: cloNIDine HCL 0.1 MG TABLET PO PRN (09:45)
[2021-09-15] MEDS: LISINOPRIL 10 MG TABLET PO SCH (12:13)
[2021-09-15] MEDS: THIAMINE HCL 100 MG TABLET (FP) PO SCH (21:00)
[2021-09-15] MEDS: MELATONIN 5 MG TABLETS PO SCH (21:00)
[2021-09-16] MEDS: QUEtiapine FUMARATE 200 MG TABLET PO SCH ×2 (10:42→21:33)
[2021-09-16] MEDS: PRENATAL VITAMINS W/ FOLIC ACID TABLET (FP) PO SCH (10:42)
[2021-09-16] MEDS: MINERAL OIL/PETROLAT/WATER TOPICAL CREAM 113 GM JAR TP SCH ×2 (10:42→21:33)
[2021-09-16] MEDS: LISINOPRIL 10 MG TABLET PO SCH (10:43)
[2021-09-16] MEDS: TOLNAFTATE 1% CREAM 15 GM TUBE TP SCH ×2 (10:43→21:33)
[2021-09-16] MEDS: MELATONIN 5 MG TABLETS PO SCH (21:32)
[2021-09-16] MEDS: THIAMINE HCL 100 MG TABLET (FP) PO SCH (21:33)
[2021-09-17] MEDS: PRENATAL VITAMINS W/ FOLIC ACID TABLET (FP) PO SCH (10:26)
[2021-09-17] MEDS: LISINOPRIL 10 MG TABLET PO SCH (10:26)
[2021-09-17] MEDS: QUEtiapine FUMARATE 200 MG TABLET PO SCH ×2 (10:26→21:05)
[2021-09-17] MEDS: MINERAL OIL/PETROLAT/WATER TOPICAL CREAM 113 GM JAR TP SCH ×2 (10:27→21:48)
[2021-09-17] MEDS: TOLNAFTATE 1% CREAM 15 GM TUBE TP SCH ×2 (10:27→21:05)
[2021-09-17] MEDS: THIAMINE HCL 100 MG TABLET (FP) PO SCH (21:05)
[2021-09-17] MEDS: MELATONIN 5 MG TABLETS PO SCH (21:48)
[2021-09-18] MEDS: TOLNAFTATE 1% CREAM 15 GM TUBE TP SCH ×2 (10:50→22:11)
[2021-09-18] MEDS: QUEtiapine FUMARATE 200 MG TABLET PO SCH ×2 (10:50→22:11)
[2021-09-18] MEDS: LISINOPRIL 10 MG TABLET PO SCH (10:50)
[2021-09-18] MEDS: PRENATAL VITAMINS W/ FOLIC ACID TABLET (FP) PO SCH (10:50)
[2021-09-18] MEDS: MINERAL OIL/PETROLAT/WATER TOPICAL CREAM 113 GM JAR TP SCH ×2 (10:51→22:09)
[2021-09-18] MEDS: ATORVASTATIN CA 20 MG TABLET (FP) PO SCH (22:10)
[2021-09-18] MEDS: THIAMINE HCL 100 MG TABLET (FP) PO SCH (22:11)
[2021-09-18] MEDS: MELATONIN 5 MG TABLETS PO SCH (22:11)
[2021-09-19] MEDS: MINERAL OIL/PETROLAT/WATER TOPICAL CREAM 113 GM JAR TP SCH ×2 (10:25→21:38)
[2021-09-19] MEDS: TOLNAFTATE 1% CREAM 15 GM TUBE TP SCH ×2 (10:25→21:39)
[2021-09-19] MEDS: PRENATAL VITAMINS W/ FOLIC ACID TABLET (FP) PO SCH (10:25)
[2021-09-19] MEDS: LISINOPRIL 20 MG TABLET PO SCH (10:25)
[2021-09-19] MEDS: QUEtiapine FUMARATE 200 MG TABLET PO SCH ×2 (10:25→21:38)
[2021-09-19] MEDS: ATORVASTATIN CA 20 MG TABLET (FP) PO SCH (21:38)
[2021-09-19] MEDS: THIAMINE HCL 100 MG TABLET (FP) PO SCH (21:38)
[2021-09-19] MEDS: MELATONIN 5 MG TABLETS PO SCH (21:38)
[2021-09-20] MEDS: QUEtiapine FUMARATE 200 MG TABLET PO SCH ×2 (10:24→21:05)
[2021-09-20] MEDS: PRENATAL VITAMINS W/ FOLIC ACID TABLET (FP) PO SCH (10:24)
[2021-09-20] MEDS: MINERAL OIL/PETROLAT/WATER TOPICAL CREAM 113 GM JAR TP SCH ×2 (10:24→21:53)
[2021-09-20] MEDS: LISINOPRIL 20 MG TABLET PO SCH (10:24)
[2021-09-20] MEDS: TOLNAFTATE 1% CREAM 15 GM TUBE TP SCH ×2 (10:25→21:53)
[2021-09-20] MEDS: THIAMINE HCL 100 MG TABLET (FP) PO SCH (21:05)
[2021-09-20] MEDS: ATORVASTATIN CA 20 MG TABLET (FP) PO SCH (21:05)
[2021-09-20] MEDS: MELATONIN 5 MG TABLETS PO SCH (21:06)
[2021-09-21] MEDS: PRENATAL VITAMINS W/ FOLIC ACID TABLET (FP) PO SCH (09:51)
[2021-09-21] MEDS: MINERAL OIL/PETROLAT/WATER TOPICAL CREAM 113 GM JAR TP SCH (09:51)
[2021-09-21] MEDS: QUEtiapine FUMARATE 200 MG TABLET PO SCH (09:51)
[2021-09-21] MEDS: TOLNAFTATE 1% CREAM 15 GM TUBE TP SCH (09:51)
[2021-09-21] MEDS: LISINOPRIL 20 MG TABLET PO SCH (09:51)
[2021-09-21 20:11] VITALS: BP 133/92; PULSE 109; TEMP 97.6
== END 2021-09-21 20:35 | disposition home or self-care (01) | DRG 772 ==
LOC: YASAS 13:02 → Y3W 13:03
PROVIDERS: ADMIT Allergy & Immunology; ATTEND Allergy & Immunology
PROC: HZ42ZZZ Group Counseling for Substance Abuse Treatment, Cognitive-Behavioral (ICD-10-PCS; principal; 2021-08-28)
DX: F10.20 Alcohol dependence, uncomplicated (principal); F14.20 Cocaine dependence, uncomplicated; F17.210 Nicotine dependence, cigarettes, uncomplicated; F19.282 Other psychoactive substance dependence with psychoactive substance-induced sleep disorder; F31.9 Bipolar disorder, unspecified; I10 Essential (primary) hypertension; E78.5 Hyperlipidemia, unspecified
CPT/HCPCS: 36415; 80053; 80061; 87389; C9803-CS; J0735; U0003; U0005

== ENCOUNTER 2022-01-22 15:46 | Inpatient (IN) | payer OTHER ==
[2022-01-22 18:11] VITALS: RESP 18; BMI 33.9
[2022-01-22] MEDS ORDERED: LOPERAMIDE HCL 2 MG CAPSULE PO PRN (19:16)
[2022-01-22] MEDS ORDERED: P-EPHED 60MG/TRIPROLIDI 2.5MG TABLET PO PRN (19:16)
[2022-01-22] MEDS ORDERED: IBUPROFEN 400 MG TABLET (FP) PO PRN (19:16)
[2022-01-22] MEDS ORDERED: MAG HYDROX/AL HYDROX/SIMETH 30 ML UNIT-DOSE CUP PO PRN (19:16)
[2022-01-22] MEDS ORDERED: MAGNESIUM HYDROX 2400MG/30ML ORAL SUSPENSION 30 ML CUP PO PRN (19:16)
[2022-01-22] MEDS ORDERED: MAGNESIUM CITRATE 300 ML BOTTLE PO PRN (19:16)
[2022-01-22] MEDS ORDERED: guaiFENesin 200 MG/10 ML 10 ML UNIT-DOSE CUPS PO PRN (19:16)
[2022-01-22] MEDS ORDERED: NICOTINE 10 MG CARTRIDGE (INHALER) IH PRN (19:16)
[2022-01-22] MEDS ORDERED: ACETAMINOPHEN 325 MG TABLET (FP) PO PRN (19:16)
[2022-01-22] MEDS ORDERED: TUBERCULIN PPD 5 TU/0.1ML VIAL ID ONE (22:52)
[2022-01-22] MEDS: MELATONIN 5 MG TABLETS PO SCH (23:20)
[2022-01-22] MEDS: THIAMINE HCL 100 MG TABLET (FP) PO SCH (23:21)
[2022-01-23] MEDS: PRENATAL VITAMINS W/ FOLIC ACID TABLET (FP) PO SCH (09:35)
[2022-01-23] MEDS: hydrOXYzine PAMOATE 25 MG CAPSULE (FP) PO PRN (09:36)
[2022-01-23] MEDS: QUEtiapine FUMARATE 200 MG TABLET PO SCH ×2 (10:20→21:12)
[2022-01-23 10:59] LABS: HEMATOCRIT 37.8 % (35.4-49); HEMOGLOBIN 12.3 GM/dL (11.7-16.9); MCH 26.4 pg (25.7-33.7); MCHC 32.5 g/dl (32.0-35.9); MEAN CELL VOLUME 81.2 fl (80-96); MEAN PLT VOLUME 9.9 fl (7.5-11.1); PLATELET COUNT 190 10^3/uL (134-434); RBC 4.65 M/mm3 (4.00-5.60); WHITE BLOOD COUNT 6.9 K/mm3 (4.0-10.0)
[2022-01-23 11:33] LABS: CALCIUM 9.1 mg/dL (8.5-10.1)
[2022-01-23 11:34] LABS: ALBUMIN 3.2 g/dl (3.4-5.0)
[2022-01-23 11:37] LABS: CREATININE 1.1 mg/dL (0.55-1.3)
[2022-01-23 11:38] LABS: TOT PROT 6.5 g/dl (6.4-8.2)
[2022-01-23 11:39] LABS: BILIRUBIN,TOTAL 0.2 mg/dL (0.2-1)
[2022-01-23] MEDS ORDERED: COLLOIDAL OATMEAL 1 BAR EACH TP PRN (15:48)
[2022-01-23] MEDS: MINERAL OIL/PETROLAT/WATER TOPICAL CREAM 113 GM JAR TP SCH (18:04)
[2022-01-23] MEDS: THIAMINE HCL 100 MG TABLET (FP) PO SCH (21:12)
[2022-01-23] MEDS: MELATONIN 5 MG TABLETS PO SCH (21:12)
[2022-01-24] MEDS: MINERAL OIL/PETROLAT/WATER TOPICAL CREAM 113 GM JAR TP SCH (09:36)
[2022-01-24] MEDS: PRENATAL VITAMINS W/ FOLIC ACID TABLET (FP) PO SCH (09:36)
[2022-01-24] MEDS: QUEtiapine FUMARATE 200 MG TABLET PO SCH ×2 (09:36→21:38)
[2022-01-24 11:26] LABS: HIV INTERPRETATION NEGATIVE (NEGATIVE)
[2022-01-24] MEDS: THIAMINE HCL 100 MG TABLET (FP) PO SCH (21:38)
[2022-01-24] MEDS: MELATONIN 5 MG TABLETS PO SCH (21:39)
[2022-01-25] MEDS: PRENATAL VITAMINS W/ FOLIC ACID TABLET (FP) PO SCH (09:44)
[2022-01-25] MEDS: QUEtiapine FUMARATE 200 MG TABLET PO SCH ×2 (09:44→20:59)
[2022-01-25] MEDS: MINERAL OIL/PETROLAT/WATER TOPICAL CREAM 113 GM JAR TP SCH (09:45)
[2022-01-25] MEDS: LISINOPRIL 10 MG TABLET PO SCH (12:07)
[2022-01-25] MEDS: THIAMINE HCL 100 MG TABLET (FP) PO SCH (20:59)
[2022-01-25] MEDS: MELATONIN 5 MG TABLETS PO SCH (20:59)
[2022-01-26] MEDS: MINERAL OIL/PETROLAT/WATER TOPICAL CREAM 113 GM JAR TP SCH (09:33)
[2022-01-26] MEDS: LISINOPRIL 10 MG TABLET PO SCH (09:33)
[2022-01-26] MEDS: QUEtiapine FUMARATE 200 MG TABLET PO SCH ×2 (09:33→21:04)
[2022-01-26] MEDS: PRENATAL VITAMINS W/ FOLIC ACID TABLET (FP) PO SCH (09:33)
[2022-01-26] MEDS ORDERED: LISINOPRIL 10 MG TABLET PO SCH (10:00)
[2022-01-26 17:39] LABS: PH,URINE 6.5 (5.0-8.0); URINE APPEARANCE CLEAR; URINE BILIRUBIN NEGATIVE (NEGATIVE); URINE COLOR YELLOW; URINE GLUCOSE (UA) NEGATIVE (NEGATIVE); URINE KETONE NEGATIVE (NEGATIVE); URINE LEUK ESTERASE NEGATIVE (NEGATIVE); URINE NITRITE NEGATIVE (NEGATIVE); URINE PROTEIN NEGATIVE (NEGATIVE); URINE UROBILINOGEN 0.2 mg/dL (0.2-1.0)
[2022-01-26] MEDS: MELATONIN 5 MG TABLETS PO SCH (21:04)
[2022-01-26] MEDS: THIAMINE HCL 100 MG TABLET (FP) PO SCH (21:04)
[2022-01-27] MEDS: QUEtiapine FUMARATE 200 MG TABLET PO SCH ×2 (09:47→21:05)
[2022-01-27] MEDS: PRENATAL VITAMINS W/ FOLIC ACID TABLET (FP) PO SCH (09:47)
[2022-01-27] MEDS: MINERAL OIL/PETROLAT/WATER TOPICAL CREAM 113 GM JAR TP SCH (09:48)
[2022-01-27] MEDS: LISINOPRIL 10 MG TABLET PO SCH (09:48)
[2022-01-27] MEDS: THIAMINE HCL 100 MG TABLET (FP) PO SCH (21:05)
[2022-01-27] MEDS: MELATONIN 5 MG TABLETS PO SCH (21:07)
[2022-01-28] MEDS: LISINOPRIL 10 MG TABLET PO SCH (09:43)
[2022-01-28] MEDS: PRENATAL VITAMINS W/ FOLIC ACID TABLET (FP) PO SCH (09:43)
[2022-01-28] MEDS: QUEtiapine FUMARATE 200 MG TABLET PO SCH ×2 (09:43→21:07)
[2022-01-28] MEDS: MINERAL OIL/PETROLAT/WATER TOPICAL CREAM 113 GM JAR TP SCH (09:44)
[2022-01-28 11:29] LABS: LDL CHOLESTEROL (ONLY SJRH) 176 mg/dL (5-100)
[2022-01-28 13:32] LABS: CHOLESTEROL 298 mg/dL (50-200); HDL CHOLESTEROL 55 mg/dL (40-60); TRIGLYCERIDES 378 mg/dL (0-150)
[2022-01-28] MEDS: MELATONIN 5 MG TABLETS PO SCH (21:07)
[2022-01-28] MEDS: THIAMINE HCL 100 MG TABLET (FP) PO SCH (21:07)
[2022-01-29] MEDS: PRENATAL VITAMINS W/ FOLIC ACID TABLET (FP) PO SCH (09:31)
[2022-01-29] MEDS: MINERAL OIL/PETROLAT/WATER TOPICAL CREAM 113 GM JAR TP SCH (09:31)
[2022-01-29] MEDS: QUEtiapine FUMARATE 200 MG TABLET PO SCH ×2 (09:32→21:11)
[2022-01-29] MEDS: LISINOPRIL 10 MG TABLET PO SCH (09:32)
[2022-01-29] MEDS: ATORVASTATIN CA 20 MG TABLET (FP) PO SCH (21:10)
[2022-01-29] MEDS: THIAMINE HCL 100 MG TABLET (FP) PO SCH (21:11)
[2022-01-29] MEDS: MELATONIN 5 MG TABLETS PO SCH (21:15)
[2022-01-30] MEDS: MINERAL OIL/PETROLAT/WATER TOPICAL CREAM 113 GM JAR TP SCH (09:39)
[2022-01-30] MEDS: LISINOPRIL 10 MG TABLET PO SCH (09:40)
[2022-01-30] MEDS: QUEtiapine FUMARATE 200 MG TABLET PO SCH ×2 (09:40→21:04)
[2022-01-30] MEDS: PRENATAL VITAMINS W/ FOLIC ACID TABLET (FP) PO SCH (09:40)
[2022-01-30] MEDS: THIAMINE HCL 100 MG TABLET (FP) PO SCH (21:04)
[2022-01-30] MEDS: MELATONIN 5 MG TABLETS PO SCH (21:06)
[2022-01-30] MEDS: ATORVASTATIN CA 20 MG TABLET (FP) PO SCH (21:06)
[2022-01-31 08:03] VITALS: TEMP 96.9
[2022-01-31] MEDS: hydrOXYzine PAMOATE 25 MG CAPSULE (FP) PO PRN (09:14)
[2022-01-31] MEDS: QUEtiapine FUMARATE 200 MG TABLET PO SCH (09:42)
[2022-01-31] MEDS: PRENATAL VITAMINS W/ FOLIC ACID TABLET (FP) PO SCH (09:42)
[2022-01-31] MEDS: LISINOPRIL 10 MG TABLET PO SCH (09:42)
[2022-01-31] MEDS: MINERAL OIL/PETROLAT/WATER TOPICAL CREAM 113 GM JAR TP SCH (09:42)
[2022-01-31] MEDS ORDERED: cloNIDine HCL 0.1 MG TABLET PO ONE (11:00)
[2022-01-31 13:08] VITALS: PULSE 122
[2022-01-31 16:54] VITALS: BP 101/72
[2022-02-01] MEDS ORDERED: LISINOPRIL 20 MG TABLET PO SCH (10:00)
== END 2022-01-31 23:43 | disposition short-term general hospital (02) | DRG 772 ==
LOC: YASAS 15:46 → Y5N 22:10
PROVIDERS: ADMIT Allergy & Immunology; ATTEND Psychiatry & Neurology Pain Medicine
PROC: HZ42ZZZ Group Counseling for Substance Abuse Treatment, Cognitive-Behavioral (ICD-10-PCS; principal; 2022-01-22)
DX: F10.20 Alcohol dependence, uncomplicated (principal); F14.20 Cocaine dependence, uncomplicated; F17.210 Nicotine dependence, cigarettes, uncomplicated; F90.9 Attention-deficit hyperactivity disorder, unspecified type; F31.9 Bipolar disorder, unspecified; F41.9 Anxiety disorder, unspecified; F25.9 Schizoaffective disorder, unspecified; I10 Essential (primary) hypertension; E78.5 Hyperlipidemia, unspecified; R94.31 Abnormal electrocardiogram [ECG] [EKG]; Z91.14 Patient's other noncompliance with medication regimen; Z28.310 Unvaccinated for COVID-19; Z91.51 Personal history of suicidal behavior; Z56.0 Unemployment, unspecified
CPT/HCPCS: 36415; 80053; 80061; 81003; 85027; 86780; 87389; 93005; 93010; C9803-CS; U0003; U0005

== ENCOUNTER 2022-01-31 17:54 | Emergency (ER) | payer OTHER ==
[2022-01-31 17:59] VITALS: BP 131/95; PULSE 93; RESP 18; TEMP 97.6; BMI 33.9
[2022-01-31 20:27] LABS: BASO % 0.4 % (0-2.0); EOS % 1.9 % (0-4.5); HEMATOCRIT 39.7 % (35.4-49); HEMOGLOBIN 13.2 GM/dL (11.7-16.9); MCH 26.7 pg (25.7-33.7); MCHC 33.2 g/dl (32.0-35.9); MEAN CELL VOLUME 80.5 fl (80-96); MEAN PLT VOLUME 9.3 fl (7.5-11.1); MONO % 10.4 % (3.8-10.2); NEUT % 52.3 % (42.8-82.8); PLATELET COUNT 198 10^3/uL (134-434); RBC 4.94 M/mm3 (4.00-5.60); RDW 15.1 % (11.9-15.9); WHITE BLOOD COUNT 7.4 K/mm3 (4.0-10.0)
[2022-01-31 20:44] LABS: CHLORIDE 101 mmol/L (98-107); SODIUM 138 mmol/L (136-145)
[2022-01-31 20:46] LABS: ALBUMIN 3.4 g/dl (3.4-5.0); ANION GAP 9 MMOL/L (8-16); BLOOD UREA NITROGEN 23.2 mg/dL (7-18); CALCIUM 9.2 mg/dL (8.5-10.1); CO2 27 mmol/L (21-32); GLUCOSE,RANDOM 86 mg/dL (74-106)
[2022-01-31 20:49] LABS: CREATININE 1.2 mg/dL (0.55-1.3); SGOT/AST 17 U/L (15-37); SGPT/ALT 26 U/L (13-61)
[2022-01-31 20:51] LABS: BILIRUBIN,TOTAL 0.2 mg/dL (0.2-1); TOT PROT 7.1 g/dl (6.4-8.2)
[2022-01-31 20:52] LABS: ALK PHOS 94 U/L (45-117)
[2022-01-31] MEDS ORDERED: ASPIRIN 81 MG CHEWABLE TABLETS PO ONE (20:59)
[2022-01-31] MEDS ORDERED: CLOPIDOGREL BISULFATE 75 MG TABLET (FP) PO ONE (21:00)
[2022-01-31] MEDS ORDERED: ENOXAPARIN NA (PORCINE) 100 MG/1 ML DISP.SYRIN SQ ONE ×2 (21:00→21:23)
[2022-01-31] MEDS ORDERED: ATORVASTATIN CA 40 MG TABLET (FP) PO ONE (21:05)
[2022-01-31] MEDS ORDERED: ASPIRIN 81 MG CHEWABLE TABLETS ONE (21:23)
[2022-01-31] MEDS ORDERED: ATORVASTATIN CA 40 MG TABLET (FP) ONE (21:23)
[2022-01-31] MEDS ORDERED: CLOPIDOGREL BISULFATE 75 MG TABLET (FP) ONE (21:23)
== END 2022-01-31 21:55 | disposition left against medical advice (07) ==
LOC: JER 17:54
DX: I21.4 Non-ST elevation (NSTEMI) myocardial infarction (principal)
CPT/HCPCS: 36415; 80053; 84484; 85025; 99283-25

== ENCOUNTER 2022-03-24 13:45 | Inpatient (IN) | payer OTHER ==
[2022-03-24 14:33] VITALS: BMI 35.2
[2022-03-24] MEDS ORDERED: ACETAMINOPHEN 325 MG TABLET (FP) PO PRN ×2 (18:21)
[2022-03-24] MEDS ORDERED: BISMUTH SUBSALICYLATE 524 MG/30 ML PO PRN (18:21)
[2022-03-24] MEDS ORDERED: METHOCARBAMOL 500 MG TABLET PO PRN (18:21)
[2022-03-24] MEDS ORDERED: DICYCLOMINE HCL 10 MG CAPSULE PO PRN (18:21)
[2022-03-24] MEDS ORDERED: NICOTINE POLACRILEX 2 MG GUM BUC PRN (18:21)
[2022-03-24] MEDS ORDERED: MAGNESIUM CITRATE 300 ML BOTTLE PO PRN (18:21)
[2022-03-24] MEDS ORDERED: MAG HYDROX/AL HYDROX/SIMETH 30 ML UNIT-DOSE CUP PO PRN (18:21)
[2022-03-24] MEDS ORDERED: IBUPROFEN 600 MG TABLET (FP) PO PRN (18:21)
[2022-03-24] MEDS ORDERED: MAGNESIUM HYDROX 2400MG/30ML ORAL SUSPENSION 30 ML CUP PO PRN (18:21)
[2022-03-24] MEDS ORDERED: ONDANSETRON *ODT* 4 MG TABLET SL PRN (18:21)
[2022-03-24] MEDS ORDERED: IBUPROFEN 400 MG TABLET (FP) PO PRN (18:21)
[2022-03-24] MEDS ORDERED: BENZOCAINE/MENTHOL (CHLORASEPTIC ) LOZENGE MM PRN (18:21)
[2022-03-24] MEDS ORDERED: LOPERAMIDE HCL 2 MG CAPSULE PO PRN (18:21)
[2022-03-24] MEDS ORDERED: NALOXONE HCL (KLOXXADO) 8 MG SPRAY NS PRN (18:21)
[2022-03-24] MEDS ORDERED: chlordiazePOXIDE HCL 25 MG CAPSULE PO PRN (18:21)
[2022-03-24] MEDS ORDERED: chlordiazePOXIDE HCL 25 MG CAPSULE ONE (22:38)
[2022-03-24] MEDS: MELATONIN 5 MG TABLETS PO SCH (22:40)
[2022-03-24] MEDS: THIAMINE HCL 100 MG TABLET (FP) PO SCH (22:41)
[2022-03-24] MEDS: chlordiazePOXIDE HCL 25 MG CAPSULE PO SCH (22:41)
[2022-03-25] MEDS ORDERED: chlordiazePOXIDE HCL 25 MG CAPSULE ONE (05:49)
[2022-03-25] MEDS: chlordiazePOXIDE HCL 25 MG CAPSULE PO SCH ×4 (06:20→22:26)
[2022-03-25] MEDS: PRENATAL VITAMINS W/ FOLIC ACID TABLET (FP) PO SCH (09:44)
[2022-03-25] MEDS: NICOTINE 14 MG/24 HOURS TOPICAL PATCH TD SCH (09:45)
[2022-03-25] MEDS: QUEtiapine FUMARATE 200 MG TABLET PO SCH ×2 (10:28→22:26)
[2022-03-25] MEDS: THIAMINE HCL 100 MG TABLET (FP) PO SCH (22:25)
[2022-03-25] MEDS: MELATONIN 5 MG TABLETS PO SCH (22:26)
[2022-03-26] MEDS: chlordiazePOXIDE HCL 25 MG CAPSULE PO SCH ×4 (06:29→22:37)
[2022-03-26] MEDS: QUEtiapine FUMARATE 200 MG TABLET PO SCH ×2 (10:31→22:37)
[2022-03-26] MEDS: PRENATAL VITAMINS W/ FOLIC ACID TABLET (FP) PO SCH (10:31)
[2022-03-26] MEDS: NICOTINE 14 MG/24 HOURS TOPICAL PATCH TD SCH (10:34)
[2022-03-26 11:15] LABS: HEMATOCRIT 39.5 % (35.4-49); MCH 27.1 pg (25.7-33.7); MEAN CELL VOLUME 82.2 fl (80-96); MEAN PLT VOLUME 9.4 fl (7.5-11.1); PLATELET COUNT 182 10^3/uL (134-434); RDW 15.1 % (11.9-15.9); WHITE BLOOD COUNT 5.2 K/mm3 (4.0-10.0)
[2022-03-26 11:29] LABS: ALBUMIN 3.5 g/dl (3.4-5.0); BLOOD UREA NITROGEN 17.7 mg/dL (7-18); CALCIUM 9.8 mg/dL (8.5-10.1)
[2022-03-26 11:34] LABS: BILIRUBIN,TOTAL 0.2 mg/dL (0.2-1); TOT PROT 6.8 g/dl (6.4-8.2)
[2022-03-26] MEDS: MELATONIN 5 MG TABLETS PO SCH (22:37)
[2022-03-26] MEDS: THIAMINE HCL 100 MG TABLET (FP) PO SCH (22:37)
[2022-03-27] MEDS ORDERED: chlordiazePOXIDE HCL 10 MG CAPSULE PO PRN
[2022-03-27] MEDS: chlordiazePOXIDE HCL 10 MG CAPSULE PO SCH ×2 (05:59→10:52)
[2022-03-27] MEDS: NICOTINE 14 MG/24 HOURS TOPICAL PATCH TD SCH (10:52)
[2022-03-27] MEDS: PRENATAL VITAMINS W/ FOLIC ACID TABLET (FP) PO SCH (10:52)
[2022-03-27] MEDS: QUEtiapine FUMARATE 200 MG TABLET PO SCH (10:52)
[2022-03-27 12:49] VITALS: BP 113/77; PULSE 75; RESP 20; TEMP 97.9
[2022-03-28] MEDS ORDERED: chlordiazePOXIDE HCL 10 MG CAPSULE PO SCH (05:00)
[2022-03-29] MEDS ORDERED: chlordiazePOXIDE HCL 10 MG CAPSULE PO ONE (05:00)
== END 2022-03-27 17:02 | disposition left against medical advice (07) | DRG 770 ==
LOC: YASAS 13:45 → Y3N 03-25 06:48
PROVIDERS: ADMIT Allergy & Immunology; ATTEND Allergy & Immunology
PROC: HZ2ZZZZ Detoxification Services for Substance Abuse Treatment (ICD-10-PCS; principal; 2022-03-25)
DX: F10.230 Alcohol dependence with withdrawal, uncomplicated (principal); F14.20 Cocaine dependence, uncomplicated; F17.210 Nicotine dependence, cigarettes, uncomplicated; F19.282 Other psychoactive substance dependence with psychoactive substance-induced sleep disorder; F19.24 Other psychoactive substance dependence with psychoactive substance-induced mood disorder; F31.9 Bipolar disorder, unspecified; F90.9 Attention-deficit hyperactivity disorder, unspecified type; E78.5 Hyperlipidemia, unspecified; I10 Essential (primary) hypertension; Z20.822 Contact with and (suspected) exposure to COVID-19
CPT/HCPCS: 36415; 71046-TC-FY; 80053; 85027; 86780; C9803-CS; U0003; U0005

== ENCOUNTER 2022-05-06 14:03 | Inpatient (IN) | payer OTHER ==
[2022-05-06 14:39] VITALS: BMI 35.8
[2022-05-06] MEDS ORDERED: BENZOCAINE/MENTHOL (CHLORASEPTIC ) LOZENGE MM PRN (15:18)
[2022-05-06] MEDS ORDERED: NALOXONE HCL (KLOXXADO) 8 MG SPRAY NS PRN (15:18)
[2022-05-06] MEDS ORDERED: ONDANSETRON *ODT* 4 MG TABLET SL PRN (15:18)
[2022-05-06] MEDS ORDERED: hydrOXYzine PAMOATE 25 MG CAPSULE (FP) PO PRN (15:18)
[2022-05-06] MEDS ORDERED: BISMUTH SUBSALICYLATE 524 MG/30 ML PO PRN (15:18)
[2022-05-06] MEDS ORDERED: METHOCARBAMOL 500 MG TABLET PO PRN (15:18)
[2022-05-06] MEDS ORDERED: LOPERAMIDE HCL 2 MG CAPSULE PO PRN (15:18)
[2022-05-06] MEDS ORDERED: IBUPROFEN 600 MG TABLET (FP) PO PRN (15:18)
[2022-05-06] MEDS ORDERED: ACETAMINOPHEN 325 MG TABLET (FP) PO PRN ×2 (15:18)
[2022-05-06] MEDS ORDERED: POLYETHYLENE GLYCOL (HEALTHYLAX) 3350 17 GM PACKET PO PRN (15:18)
[2022-05-06] MEDS ORDERED: MAG HYDROX/AL HYDROX/SIMETH 30 ML UNIT-DOSE CUP PO PRN (15:18)
[2022-05-06] MEDS ORDERED: IBUPROFEN 400 MG TABLET (FP) PO PRN (15:18)
[2022-05-06] MEDS ORDERED: MAGNESIUM HYDROX 2400MG/30ML ORAL SUSPENSION 30 ML CUP PO PRN (15:18)
[2022-05-06] MEDS ORDERED: chlordiazePOXIDE HCL 25 MG CAPSULE PO PRN (15:18)
[2022-05-06] MEDS ORDERED: DICYCLOMINE HCL 10 MG CAPSULE PO PRN (15:18)
[2022-05-06] MEDS: chlordiazePOXIDE HCL 25 MG CAPSULE PO SCH ×2 (17:17→22:12)
[2022-05-06] MEDS ORDERED: QUEtiapine FUMARATE 200 MG TABLET PO ONE (22:00)
[2022-05-06] MEDS ORDERED: MELATONIN 5 MG TABLETS PO SCH (22:00)
[2022-05-06] MEDS: MINERAL OIL/PETROLAT/WATER TOPICAL CREAM 454 GM JAR TP SCH (22:10)
[2022-05-06] MEDS: TOLNAFTATE 1% CREAM 15 GM TUBE TP SCH (22:10)
[2022-05-06] MEDS: THIAMINE HCL 100 MG TABLET (FP) PO SCH (22:11)
[2022-05-07] MEDS: chlordiazePOXIDE HCL 25 MG CAPSULE PO SCH ×4 (05:25→22:35)
[2022-05-07] MEDS: PRENATAL VITAMINS W/ FOLIC ACID TABLET (FP) PO SCH (10:04)
[2022-05-07] MEDS: TOLNAFTATE 1% CREAM 15 GM TUBE TP SCH ×2 (10:05→22:36)
[2022-05-07] MEDS: MINERAL OIL/PETROLAT/WATER TOPICAL CREAM 454 GM JAR TP SCH ×2 (10:05→22:34)
[2022-05-07] MEDS: QUEtiapine FUMARATE 200 MG TABLET PO SCH ×2 (10:33→22:36)
[2022-05-07 10:47] LABS: HEMOGLOBIN 12.8 GM/dL (11.7-16.9); MCH 26.6 pg (25.7-33.7); MCHC 32.9 g/dl (32.0-35.9); MEAN CELL VOLUME 80.8 fl (80-96); MEAN PLT VOLUME 9.7 fl (7.5-11.1); PLATELET COUNT 182 10^3/uL (134-434); RBC 4.83 M/mm3 (4.00-5.60); RDW 14.6 % (11.9-15.9); WHITE BLOOD COUNT 5.7 K/mm3 (4.0-10.0)
[2022-05-07 11:11] LABS: CALCIUM 9.4 mg/dL (8.5-10.1)
[2022-05-07 11:12] LABS: ALBUMIN 3.4 g/dl (3.4-5.0); BLOOD UREA NITROGEN 17.6 mg/dL (7-18)
[2022-05-07 11:13] LABS: CREATININE 0.9 mg/dL (0.55-1.3)
[2022-05-07 11:14] LABS: TOT PROT 6.9 g/dl (6.4-8.2)
[2022-05-07 11:15] LABS: BILIRUBIN,TOTAL 0.3 mg/dL (0.2-1)
[2022-05-07 12:11] LABS: HIV INTERPRETATION NEGATIVE (NEGATIVE)
[2022-05-07] MEDS: THIAMINE HCL 100 MG TABLET (FP) PO SCH (22:35)
[2022-05-08] MEDS: chlordiazePOXIDE HCL 25 MG CAPSULE PO SCH ×4 (05:24→22:11)
[2022-05-08] MEDS: PRENATAL VITAMINS W/ FOLIC ACID TABLET (FP) PO SCH (10:20)
[2022-05-08] MEDS: QUEtiapine FUMARATE 200 MG TABLET PO SCH ×2 (10:20→22:11)
[2022-05-08] MEDS: TOLNAFTATE 1% CREAM 15 GM TUBE TP SCH ×2 (10:21→22:11)
[2022-05-08] MEDS: MINERAL OIL/PETROLAT/WATER TOPICAL CREAM 454 GM JAR TP SCH ×2 (10:22→22:11)
[2022-05-08] MEDS: THIAMINE HCL 100 MG TABLET (FP) PO SCH (22:11)
[2022-05-09] MEDS ORDERED: chlordiazePOXIDE HCL 10 MG CAPSULE PO PRN
[2022-05-09] MEDS: chlordiazePOXIDE HCL 10 MG CAPSULE PO SCH ×4 (05:23→22:53)
[2022-05-09] MEDS: PRENATAL VITAMINS W/ FOLIC ACID TABLET (FP) PO SCH (10:13)
[2022-05-09] MEDS: MINERAL OIL/PETROLAT/WATER TOPICAL CREAM 454 GM JAR TP SCH ×2 (10:14→22:53)
[2022-05-09] MEDS: QUEtiapine FUMARATE 200 MG TABLET PO SCH ×2 (10:14→22:53)
[2022-05-09] MEDS: TOLNAFTATE 1% CREAM 15 GM TUBE TP SCH ×2 (10:15→22:53)
[2022-05-09] MEDS: THIAMINE HCL 100 MG TABLET (FP) PO SCH (22:52)
[2022-05-10] MEDS: chlordiazePOXIDE HCL 10 MG CAPSULE PO SCH ×2 (05:17→17:45)
[2022-05-10] MEDS: MINERAL OIL/PETROLAT/WATER TOPICAL CREAM 454 GM JAR TP SCH ×2 (10:18→22:22)
[2022-05-10] MEDS: PRENATAL VITAMINS W/ FOLIC ACID TABLET (FP) PO SCH (10:18)
[2022-05-10] MEDS: QUEtiapine FUMARATE 200 MG TABLET PO SCH ×2 (10:19→22:21)
[2022-05-10] MEDS: TOLNAFTATE 1% CREAM 15 GM TUBE TP SCH ×2 (10:19→22:21)
[2022-05-10] MEDS: THIAMINE HCL 100 MG TABLET (FP) PO SCH (22:21)
[2022-05-11] MEDS ORDERED: chlordiazePOXIDE HCL 10 MG CAPSULE PO ONE (05:00)
[2022-05-11] MEDS: QUEtiapine FUMARATE 200 MG TABLET PO SCH (09:15)
[2022-05-11 09:16] VITALS: BP 151/88; PULSE 100; RESP 19; TEMP 97.9
[2022-05-11] MEDS: PRENATAL VITAMINS W/ FOLIC ACID TABLET (FP) PO SCH (09:16)
[2022-05-11] MEDS: MINERAL OIL/PETROLAT/WATER TOPICAL CREAM 454 GM JAR TP SCH (09:16)
[2022-05-11] MEDS: TOLNAFTATE 1% CREAM 15 GM TUBE TP SCH (09:16)
== END 2022-05-11 09:32 | disposition other institution (70) | DRG 774 ==
LOC: YASAS 14:03 → SUATTDRO 14:03 → Y3N 15:29
PROVIDERS: ADMIT Allergy & Immunology; ATTEND Surgery
PROC: HZ2ZZZZ Detoxification Services for Substance Abuse Treatment (ICD-10-PCS; principal; 2022-05-06)
DX: F10.230 Alcohol dependence with withdrawal, uncomplicated (principal); F14.20 Cocaine dependence, uncomplicated; F17.210 Nicotine dependence, cigarettes, uncomplicated; F19.282 Other psychoactive substance dependence with psychoactive substance-induced sleep disorder; F19.24 Other psychoactive substance dependence with psychoactive substance-induced mood disorder; F31.9 Bipolar disorder, unspecified; F90.9 Attention-deficit hyperactivity disorder, unspecified type; I10 Essential (primary) hypertension; B35.3 Tinea pedis; E66.9 Obesity, unspecified; Z68.35 Body mass index [BMI] 35.0-35.9, adult
CPT/HCPCS: 36415; 80053; 85027; 86780; 87389; 87811; C9803-CS; U0003; U0005

== ENCOUNTER 2022-06-17 13:09 | Inpatient (IN) | payer OTHER ==
[2022-06-17 17:05] VITALS: BMI 33.9
[2022-06-17] MEDS ORDERED: POLYETHYLENE GLYCOL (HEALTHYLAX) 3350 17 GM PACKET PO PRN (18:13)
[2022-06-17] MEDS ORDERED: chlordiazePOXIDE HCL 25 MG CAPSULE PO PRN (18:13)
[2022-06-17] MEDS ORDERED: NICOTINE 10 MG CARTRIDGE (INHALER) IH PRN (18:13)
[2022-06-17] MEDS ORDERED: MAGNESIUM HYDROX 2400MG/30ML ORAL SUSPENSION 30 ML CUP PO PRN (18:13)
[2022-06-17] MEDS ORDERED: IBUPROFEN 600 MG TABLET (FP) PO PRN (18:13)
[2022-06-17] MEDS ORDERED: NALOXONE HCL (KLOXXADO) 8 MG SPRAY NS PRN (18:13)
[2022-06-17] MEDS ORDERED: BISMUTH SUBSALICYLATE 524 MG/30 ML PO PRN (18:13)
[2022-06-17] MEDS ORDERED: ACETAMINOPHEN 325 MG TABLET (FP) PO PRN ×2 (18:13)
[2022-06-17] MEDS ORDERED: IBUPROFEN 400 MG TABLET (FP) PO PRN (18:13)
[2022-06-17] MEDS ORDERED: MAG HYDROX/AL HYDROX/SIMETH 30 ML UNIT-DOSE CUP PO PRN (18:13)
[2022-06-17] MEDS ORDERED: DICYCLOMINE HCL 10 MG CAPSULE PO PRN (18:13)
[2022-06-17] MEDS ORDERED: BENZOCAINE/MENTHOL (CHLORASEPTIC ) LOZENGE MM PRN (18:13)
[2022-06-17] MEDS ORDERED: ONDANSETRON *ODT* 4 MG TABLET SL PRN (18:13)
[2022-06-17] MEDS ORDERED: MELATONIN 5 MG TABLETS PO SCH (22:00)
[2022-06-17] MEDS: THIAMINE HCL 100 MG TABLET (FP) PO SCH (22:08)
[2022-06-17] MEDS: LOPERAMIDE HCL 2 MG CAPSULE PO PRN (22:08)
[2022-06-17] MEDS: chlordiazePOXIDE HCL 25 MG CAPSULE PO SCH (22:08)
[2022-06-18] MEDS: chlordiazePOXIDE HCL 25 MG CAPSULE PO SCH ×4 (06:00→22:30)
[2022-06-18] MEDS: LOPERAMIDE HCL 2 MG CAPSULE PO PRN (06:05)
[2022-06-18] MEDS: PRENATAL VITAMINS W/ FOLIC ACID TABLET (FP) PO SCH (10:22)
[2022-06-18] MEDS: NICOTINE 14 MG/24 HOURS TOPICAL PATCH TD SCH (10:23)
[2022-06-18] MEDS: QUEtiapine FUMARATE 200 MG TABLET PO SCH ×2 (10:23→22:30)
[2022-06-18] MEDS: METHOCARBAMOL 500 MG TABLET PO PRN (10:24)
[2022-06-18] MEDS ORDERED: amLODIPine BESYLATE 2.5 MG TABLET (FP) PO ONE (11:30)
[2022-06-18 13:20] LABS: BLOOD UREA NITROGEN 12.3 mg/dL (7-18); HEMATOCRIT 39.5 % (35.4-49); MCH 26.8 pg (25.7-33.7); MEAN CELL VOLUME 81.1 fl (80-96); MEAN PLT VOLUME 9.3 fl (7.5-11.1); PLATELET COUNT 227 10^3/uL (134-434); RBC 4.87 M/mm3 (4.00-5.60); RDW 14.6 % (11.9-15.9); WHITE BLOOD COUNT 7.4 K/mm3 (4.0-10.0)
[2022-06-18 13:21] LABS: ALBUMIN 3.4 g/dl (3.4-5.0)
[2022-06-18 13:24] LABS: CREATININE 0.9 mg/dL (0.55-1.3)
[2022-06-18 13:25] LABS: BILIRUBIN,TOTAL 0.4 mg/dL (0.2-1); TOT PROT 6.8 g/dl (6.4-8.2)
[2022-06-18] MEDS: THIAMINE HCL 100 MG TABLET (FP) PO SCH (22:30)
[2022-06-19] MEDS: chlordiazePOXIDE HCL 25 MG CAPSULE PO SCH ×4 (05:24→22:31)
[2022-06-19] MEDS: METHOCARBAMOL 500 MG TABLET PO PRN (10:24)
[2022-06-19] MEDS: QUEtiapine FUMARATE 200 MG TABLET PO SCH ×2 (10:24→22:30)
[2022-06-19] MEDS: amLODIPine BESYLATE 2.5 MG TABLET (FP) PO SCH (10:25)
[2022-06-19] MEDS: NICOTINE 14 MG/24 HOURS TOPICAL PATCH TD SCH (10:25)
[2022-06-19] MEDS: PRENATAL VITAMINS W/ FOLIC ACID TABLET (FP) PO SCH (10:25)
[2022-06-19 15:27] LABS: PH,URINE 6.5 (5.0-8.0); URINE APPEARANCE CLEAR; URINE BILIRUBIN NEGATIVE (NEGATIVE); URINE COLOR YELLOW; URINE GLUCOSE (UA) NEGATIVE (NEGATIVE); URINE KETONE NEGATIVE (NEGATIVE); URINE LEUK ESTERASE NEGATIVE (NEGATIVE); URINE NITRITE NEGATIVE (NEGATIVE); URINE PROTEIN NEGATIVE (NEGATIVE); URINE UROBILINOGEN 0.2 mg/dL (0.2-1.0)
[2022-06-19] MEDS: THIAMINE HCL 100 MG TABLET (FP) PO SCH (22:30)
[2022-06-20] MEDS ORDERED: chlordiazePOXIDE HCL 10 MG CAPSULE PO PRN
[2022-06-20] MEDS: chlordiazePOXIDE HCL 10 MG CAPSULE PO SCH ×4 (05:56→22:22)
[2022-06-20] MEDS: METHOCARBAMOL 500 MG TABLET PO PRN (10:15)
[2022-06-20] MEDS: PRENATAL VITAMINS W/ FOLIC ACID TABLET (FP) PO SCH (10:15)
[2022-06-20] MEDS: NICOTINE 14 MG/24 HOURS TOPICAL PATCH TD SCH (10:15)
[2022-06-20] MEDS: amLODIPine BESYLATE 2.5 MG TABLET (FP) PO SCH (10:15)
[2022-06-20] MEDS: QUEtiapine FUMARATE 200 MG TABLET PO SCH ×2 (10:15→22:22)
[2022-06-20] MEDS ORDERED: METOPROLOL TARTRATE 25 MG TABLET (FP) PO ONE (14:30)
[2022-06-20] MEDS: THIAMINE HCL 100 MG TABLET (FP) PO SCH (22:22)
[2022-06-21] MEDS: chlordiazePOXIDE HCL 10 MG CAPSULE PO SCH ×2 (06:11→17:47)
[2022-06-21] MEDS: NICOTINE 14 MG/24 HOURS TOPICAL PATCH TD SCH (10:09)
[2022-06-21] MEDS: QUEtiapine FUMARATE 200 MG TABLET PO SCH ×2 (10:10→22:33)
[2022-06-21] MEDS: amLODIPine BESYLATE 5 MG TABLET (FP) PO SCH (10:10)
[2022-06-21] MEDS: PRENATAL VITAMINS W/ FOLIC ACID TABLET (FP) PO SCH (10:10)
[2022-06-21] MEDS ORDERED: PHENAZOPYRIDINE HCL 100 MG TABLET (FP) PO ONE (11:30)
[2022-06-21] MEDS: THIAMINE HCL 100 MG TABLET (FP) PO SCH (22:33)
[2022-06-22] MEDS ORDERED: chlordiazePOXIDE HCL 10 MG CAPSULE PO ONE (05:00)
[2022-06-22 09:10] VITALS: BP 145/81; PULSE 107; RESP 20; TEMP 98.1
[2022-06-22] MEDS: NICOTINE 14 MG/24 HOURS TOPICAL PATCH TD SCH (09:59)
[2022-06-22] MEDS: PRENATAL VITAMINS W/ FOLIC ACID TABLET (FP) PO SCH (09:59)
[2022-06-22] MEDS: METHOCARBAMOL 500 MG TABLET PO PRN (09:59)
[2022-06-22] MEDS: QUEtiapine FUMARATE 200 MG TABLET PO SCH (09:59)
[2022-06-22] MEDS: amLODIPine BESYLATE 5 MG TABLET (FP) PO SCH (09:59)
[2022-06-22] MEDS ORDERED: MAG HYDROX/AL HYDROX/SIMETH 30 ML UNIT-DOSE CUP PO PRN (15:08)
[2022-06-22] MEDS ORDERED: LOPERAMIDE HCL 2 MG CAPSULE PO PRN (15:08)
[2022-06-22] MEDS ORDERED: IBUPROFEN 400 MG TABLET (FP) PO PRN (15:08)
[2022-06-22] MEDS ORDERED: NICOTINE 10 MG CARTRIDGE (INHALER) IH PRN (15:08)
[2022-06-22] MEDS ORDERED: MAGNESIUM HYDROX 2400MG/30ML ORAL SUSPENSION 30 ML CUP PO PRN (15:08)
[2022-06-22] MEDS ORDERED: ACETAMINOPHEN 325 MG TABLET (FP) PO PRN (15:08)
[2022-06-22] MEDS ORDERED: guaiFENesin 200 MG/10 ML 10 ML UNIT-DOSE CUPS PO PRN (15:08)
[2022-06-22] MEDS ORDERED: POLYETHYLENE GLYCOL (HEALTHYLAX) 3350 17 GM PACKET PO PRN (15:08)
[2022-06-22] MEDS ORDERED: P-EPHED 60MG/TRIPROLIDI 2.5MG TABLET PO PRN (15:08)
[2022-06-22] MEDS ORDERED: BENZOCAINE/MENTHOL (CHLORASEPTIC ) LOZENGE MM PRN (15:08)
[2022-06-22] MEDS ORDERED: hydrOXYzine PAMOATE 25 MG CAPSULE (FP) PO PRN (15:08)
[2022-06-22] MEDS ORDERED: THIAMINE HCL 100 MG TABLET (FP) PO SCH (22:00)
[2022-06-22] MEDS ORDERED: MELATONIN 5 MG TABLETS PO SCH (22:00)
[2022-06-23] MEDS ORDERED: NICOTINE 7 MG/24 HOURS TOPICAL PATCH TD SCH (10:00)
[2022-06-23] MEDS ORDERED: PRENATAL VITAMINS W/ FOLIC ACID TABLET (FP) PO SCH (10:00)
== END 2022-06-22 11:25 | disposition other institution (70) | DRG 774 ==
LOC: YASAS 13:09 → Y6N 18:12
PROVIDERS: ADMIT Allergy & Immunology; ATTEND Surgery
PROC: HZ2ZZZZ Detoxification Services for Substance Abuse Treatment (ICD-10-PCS; principal; 2022-06-17)
DX: F10.230 Alcohol dependence with withdrawal, uncomplicated (principal); F14.20 Cocaine dependence, uncomplicated; F17.210 Nicotine dependence, cigarettes, uncomplicated; F19.282 Other psychoactive substance dependence with psychoactive substance-induced sleep disorder; F19.24 Other psychoactive substance dependence with psychoactive substance-induced mood disorder; F31.9 Bipolar disorder, unspecified; F90.9 Attention-deficit hyperactivity disorder, unspecified type; E78.5 Hyperlipidemia, unspecified; I10 Essential (primary) hypertension; E66.9 Obesity, unspecified; Z68.33 Body mass index [BMI] 33.0-33.9, adult; Z88.0 Allergy status to penicillin
CPT/HCPCS: 36415; 80053; 81003; 85027; 86780; 87491; 87591; 87661; C9803-CS; U0003; U0005

== ENCOUNTER 2022-06-22 11:27 | Inpatient (IN) | payer OTHER ==
[2022-06-22] MEDS ORDERED: guaiFENesin 200 MG/10 ML 10 ML UNIT-DOSE CUPS PO PRN (15:11)
[2022-06-22] MEDS ORDERED: LOPERAMIDE HCL 2 MG CAPSULE PO PRN (15:11)
[2022-06-22] MEDS ORDERED: P-EPHED 60MG/TRIPROLIDI 2.5MG TABLET PO PRN (15:11)
[2022-06-22] MEDS ORDERED: MAGNESIUM HYDROX 2400MG/30ML ORAL SUSPENSION 30 ML CUP PO PRN (15:11)
[2022-06-22] MEDS ORDERED: POLYETHYLENE GLYCOL (HEALTHYLAX) 3350 17 GM PACKET PO PRN (15:11)
[2022-06-22] MEDS ORDERED: ACETAMINOPHEN 325 MG TABLET (FP) PO PRN (15:11)
[2022-06-22] MEDS ORDERED: hydrOXYzine PAMOATE 25 MG CAPSULE (FP) PO PRN (15:11)
[2022-06-22] MEDS ORDERED: IBUPROFEN 400 MG TABLET (FP) PO PRN (15:11)
[2022-06-22] MEDS ORDERED: MAG HYDROX/AL HYDROX/SIMETH 30 ML UNIT-DOSE CUP PO PRN (15:11)
[2022-06-22] MEDS ORDERED: NICOTINE 10 MG CARTRIDGE (INHALER) IH PRN (15:11)
[2022-06-22] MEDS ORDERED: BENZOCAINE/MENTHOL (CHLORASEPTIC ) LOZENGE MM PRN (15:11)
[2022-06-22] MEDS: ACAMPROSATE CALCIUM 333 MG TABLET.DR PO SCH (21:37)
[2022-06-22] MEDS: MELATONIN 5 MG TABLETS PO SCH (21:37)
[2022-06-22] MEDS: THIAMINE HCL 100 MG TABLET (FP) PO SCH (21:37)
[2022-06-22] MEDS: QUEtiapine FUMARATE 400 MG TABLET PO SCH (21:38)
[2022-06-23] MEDS: ACAMPROSATE CALCIUM 333 MG TABLET.DR PO SCH ×3 (06:55→21:22)
[2022-06-23] MEDS: QUEtiapine FUMARATE 200 MG TABLET PO SCH (10:15)
[2022-06-23] MEDS: PRENATAL VITAMINS W/ FOLIC ACID TABLET (FP) PO SCH (10:16)
[2022-06-23] MEDS: NICOTINE 7 MG/24 HOURS TOPICAL PATCH TD SCH (10:16)
[2022-06-23] MEDS: THIAMINE HCL 100 MG TABLET (FP) PO SCH (21:21)
[2022-06-23] MEDS: MELATONIN 5 MG TABLETS PO SCH (21:21)
[2022-06-23] MEDS: QUEtiapine FUMARATE 400 MG TABLET PO SCH (21:47)
[2022-06-24] MEDS: ACAMPROSATE CALCIUM 333 MG TABLET.DR PO SCH ×3 (06:33→21:30)
[2022-06-24] MEDS: NICOTINE 7 MG/24 HOURS TOPICAL PATCH TD SCH (09:39)
[2022-06-24] MEDS: QUEtiapine FUMARATE 200 MG TABLET PO SCH (09:39)
[2022-06-24] MEDS: PRENATAL VITAMINS W/ FOLIC ACID TABLET (FP) PO SCH (09:39)
[2022-06-24] MEDS: MELATONIN 5 MG TABLETS PO SCH (21:29)
[2022-06-24] MEDS: THIAMINE HCL 100 MG TABLET (FP) PO SCH (21:29)
[2022-06-24] MEDS: QUEtiapine FUMARATE 400 MG TABLET PO SCH (21:30)
[2022-06-25] MEDS: ACAMPROSATE CALCIUM 333 MG TABLET.DR PO SCH ×3 (07:11→21:20)
[2022-06-25] MEDS: QUEtiapine FUMARATE 200 MG TABLET PO SCH (09:56)
[2022-06-25] MEDS: PRENATAL VITAMINS W/ FOLIC ACID TABLET (FP) PO SCH (09:56)
[2022-06-25] MEDS: NICOTINE 7 MG/24 HOURS TOPICAL PATCH TD SCH (09:57)
[2022-06-25] MEDS ORDERED: amLODIPine BESYLATE 5 MG TABLET (FP) PO SCH (14:45)
[2022-06-25 15:01] LABS: HIV INTERPRETATION NEGATIVE (NEGATIVE)
[2022-06-25] MEDS: MELATONIN 5 MG TABLETS PO SCH (21:19)
[2022-06-25] MEDS: THIAMINE HCL 100 MG TABLET (FP) PO SCH (21:19)
[2022-06-25] MEDS: QUEtiapine FUMARATE 400 MG TABLET PO SCH (21:20)
[2022-06-26] MEDS: ACAMPROSATE CALCIUM 333 MG TABLET.DR PO SCH ×3 (06:38→21:32)
[2022-06-26] MEDS ORDERED: cloNIDine HCL 0.1 MG TABLET PO ONE (07:30)
[2022-06-26] MEDS ORDERED: COLLOIDAL OATMEAL 1 BAR EACH TP PRN (07:45)
[2022-06-26] MEDS: MINERAL OIL/PETROLAT/WATER TOPICAL CREAM 113 GM JAR TP SCH ×2 (09:44→21:33)
[2022-06-26] MEDS: amLODIPine BESYLATE 5 MG TABLET (FP) PO SCH (09:46)
[2022-06-26] MEDS: PRENATAL VITAMINS W/ FOLIC ACID TABLET (FP) PO SCH (09:47)
[2022-06-26] MEDS: NICOTINE 7 MG/24 HOURS TOPICAL PATCH TD SCH (09:47)
[2022-06-26] MEDS: QUEtiapine FUMARATE 200 MG TABLET PO SCH ×2 (09:47→21:31)
[2022-06-26] MEDS: THIAMINE HCL 100 MG TABLET (FP) PO SCH (21:31)
[2022-06-26] MEDS: MELATONIN 5 MG TABLETS PO SCH (21:36)
[2022-06-27] MEDS: ACAMPROSATE CALCIUM 333 MG TABLET.DR PO SCH (06:52)
[2022-06-27] MEDS: MINERAL OIL/PETROLAT/WATER TOPICAL CREAM 113 GM JAR TP SCH ×2 (10:03→21:32)
[2022-06-27] MEDS: PRENATAL VITAMINS W/ FOLIC ACID TABLET (FP) PO SCH (10:03)
[2022-06-27] MEDS: amLODIPine BESYLATE 5 MG TABLET (FP) PO SCH (10:03)
[2022-06-27] MEDS: NICOTINE 7 MG/24 HOURS TOPICAL PATCH TD SCH (10:03)
[2022-06-27] MEDS: QUEtiapine FUMARATE 200 MG TABLET PO SCH ×2 (10:04→21:32)
[2022-06-27] MEDS: THIAMINE HCL 100 MG TABLET (FP) PO SCH (21:31)
[2022-06-27] MEDS: MELATONIN 5 MG TABLETS PO SCH (21:31)
[2022-06-28] MEDS: amLODIPine BESYLATE 5 MG TABLET (FP) PO SCH (10:04)
[2022-06-28] MEDS: PRENATAL VITAMINS W/ FOLIC ACID TABLET (FP) PO SCH (10:04)
[2022-06-28] MEDS: QUEtiapine FUMARATE 200 MG TABLET PO SCH ×2 (10:04→21:23)
[2022-06-28] MEDS: MINERAL OIL/PETROLAT/WATER TOPICAL CREAM 113 GM JAR TP SCH ×2 (10:05→21:23)
[2022-06-28] MEDS: NICOTINE 7 MG/24 HOURS TOPICAL PATCH TD SCH (10:05)
[2022-06-28] MEDS: THIAMINE HCL 100 MG TABLET (FP) PO SCH (21:23)
[2022-06-28] MEDS: MELATONIN 5 MG TABLETS PO SCH (21:23)
[2022-06-29] MEDS: PRENATAL VITAMINS W/ FOLIC ACID TABLET (FP) PO SCH (09:59)
[2022-06-29] MEDS: amLODIPine BESYLATE 5 MG TABLET (FP) PO SCH (10:00)
[2022-06-29] MEDS: NICOTINE 7 MG/24 HOURS TOPICAL PATCH TD SCH (10:00)
[2022-06-29] MEDS: QUEtiapine FUMARATE 200 MG TABLET PO SCH ×2 (10:00→21:34)
[2022-06-29] MEDS: HYDROCORTISONE 1% TOPICAL CREAM 30 GM TUBE TP SCH ×2 (10:55→21:35)
[2022-06-29] MEDS: SILVER SULFADIAZINE 1% TOP CREAM 50 GM JAR TP SCH (10:55)
[2022-06-29] MEDS: THIAMINE HCL 100 MG TABLET (FP) PO SCH (21:34)
[2022-06-29] MEDS: MELATONIN 5 MG TABLETS PO SCH (21:34)
[2022-06-30] MEDS: amLODIPine BESYLATE 5 MG TABLET (FP) PO SCH (09:46)
[2022-06-30] MEDS: SILVER SULFADIAZINE 1% TOP CREAM 50 GM JAR TP SCH (09:47)
[2022-06-30] MEDS: QUEtiapine FUMARATE 200 MG TABLET PO SCH ×2 (09:47→22:19)
[2022-06-30] MEDS: HYDROCORTISONE 1% TOPICAL CREAM 30 GM TUBE TP SCH ×2 (09:47→21:27)
[2022-06-30] MEDS: PRENATAL VITAMINS W/ FOLIC ACID TABLET (FP) PO SCH (09:47)
[2022-06-30] MEDS: NICOTINE 7 MG/24 HOURS TOPICAL PATCH TD SCH (09:47)
[2022-06-30] MEDS: THIAMINE HCL 100 MG TABLET (FP) PO SCH (21:27)
[2022-06-30] MEDS: MELATONIN 5 MG TABLETS PO SCH (21:28)
[2022-07-01] MEDS: QUEtiapine FUMARATE 200 MG TABLET PO SCH ×2 (09:52→21:33)
[2022-07-01] MEDS: amLODIPine BESYLATE 5 MG TABLET (FP) PO SCH (09:52)
[2022-07-01] MEDS: PRENATAL VITAMINS W/ FOLIC ACID TABLET (FP) PO SCH (09:52)
[2022-07-01] MEDS: SILVER SULFADIAZINE 1% TOP CREAM 50 GM JAR TP SCH (09:53)
[2022-07-01] MEDS: HYDROCORTISONE 1% TOPICAL CREAM 30 GM TUBE TP SCH ×2 (09:53→21:46)
[2022-07-01] MEDS: NICOTINE 7 MG/24 HOURS TOPICAL PATCH TD SCH (09:53)
[2022-07-01] MEDS ORDERED: MINERAL OIL/PETROLAT/WATER TOPICAL CREAM 454 GM JAR TP PRN (12:47)
[2022-07-01] MEDS: MELATONIN 5 MG TABLETS PO SCH (21:33)
[2022-07-01] MEDS: THIAMINE HCL 100 MG TABLET (FP) PO SCH (21:33)
[2022-07-02] MEDS: HYDROCORTISONE 1% TOPICAL CREAM 30 GM TUBE TP SCH ×2 (09:55→21:15)
[2022-07-02] MEDS: NICOTINE 7 MG/24 HOURS TOPICAL PATCH TD SCH (09:56)
[2022-07-02] MEDS: amLODIPine BESYLATE 5 MG TABLET (FP) PO SCH (09:56)
[2022-07-02] MEDS: PRENATAL VITAMINS W/ FOLIC ACID TABLET (FP) PO SCH (09:57)
[2022-07-02] MEDS: SILVER SULFADIAZINE 1% TOP CREAM 50 GM JAR TP SCH (09:57)
[2022-07-02] MEDS: QUEtiapine FUMARATE 200 MG TABLET PO SCH ×2 (09:57→21:14)
[2022-07-02] MEDS: MELATONIN 5 MG TABLETS PO SCH (21:14)
[2022-07-02] MEDS: THIAMINE HCL 100 MG TABLET (FP) PO SCH (21:14)
[2022-07-03] MEDS: amLODIPine BESYLATE 5 MG TABLET (FP) PO SCH (10:08)
[2022-07-03] MEDS: PRENATAL VITAMINS W/ FOLIC ACID TABLET (FP) PO SCH (10:10)
[2022-07-03] MEDS: QUEtiapine FUMARATE 200 MG TABLET PO SCH ×2 (10:12→21:23)
[2022-07-03] MEDS: HYDROCORTISONE 1% TOPICAL CREAM 30 GM TUBE TP SCH ×2 (10:15→21:23)
[2022-07-03] MEDS: NICOTINE 7 MG/24 HOURS TOPICAL PATCH TD SCH (10:27)
[2022-07-03] MEDS: SILVER SULFADIAZINE 1% TOP CREAM 50 GM JAR TP SCH (10:28)
[2022-07-03] MEDS: THIAMINE HCL 100 MG TABLET (FP) PO SCH (21:22)
[2022-07-03] MEDS: MELATONIN 5 MG TABLETS PO SCH (21:22)
[2022-07-04] MEDS: amLODIPine BESYLATE 5 MG TABLET (FP) PO SCH (09:45)
[2022-07-04] MEDS: QUEtiapine FUMARATE 200 MG TABLET PO SCH ×2 (09:45→21:06)
[2022-07-04] MEDS: PRENATAL VITAMINS W/ FOLIC ACID TABLET (FP) PO SCH (09:46)
[2022-07-04] MEDS: HYDROCORTISONE 1% TOPICAL CREAM 30 GM TUBE TP SCH ×2 (09:47→21:07)
[2022-07-04] MEDS: NICOTINE 7 MG/24 HOURS TOPICAL PATCH TD SCH (09:47)
[2022-07-04] MEDS: THIAMINE HCL 100 MG TABLET (FP) PO SCH (21:06)
[2022-07-04] MEDS: MELATONIN 5 MG TABLETS PO SCH (21:07)
[2022-07-05] MEDS: HYDROCORTISONE 1% TOPICAL CREAM 30 GM TUBE TP SCH ×2 (09:48→21:29)
[2022-07-05] MEDS: PRENATAL VITAMINS W/ FOLIC ACID TABLET (FP) PO SCH (09:49)
[2022-07-05] MEDS: NICOTINE 7 MG/24 HOURS TOPICAL PATCH TD SCH (09:49)
[2022-07-05] MEDS: QUEtiapine FUMARATE 200 MG TABLET PO SCH ×2 (09:49→21:29)
[2022-07-05] MEDS: amLODIPine BESYLATE 5 MG TABLET (FP) PO SCH (09:49)
[2022-07-05] MEDS: THIAMINE HCL 100 MG TABLET (FP) PO SCH (21:29)
[2022-07-05] MEDS: MELATONIN 5 MG TABLETS PO SCH (21:29)
[2022-07-06 06:50] VITALS: TEMP 97.3
[2022-07-06] MEDS: NICOTINE 7 MG/24 HOURS TOPICAL PATCH TD SCH (09:00)
[2022-07-06] MEDS: PRENATAL VITAMINS W/ FOLIC ACID TABLET (FP) PO SCH (09:00)
[2022-07-06] MEDS: QUEtiapine FUMARATE 200 MG TABLET PO SCH (09:01)
[2022-07-06] MEDS: amLODIPine BESYLATE 5 MG TABLET (FP) PO SCH (09:01)
[2022-07-06 09:08] VITALS: BP 131/87; PULSE 105; RESP 17
== END 2022-07-06 09:10 | disposition home or self-care (01) | DRG 774 ==
LOC: YASAS 11:27 → Y3E 11:28
PROVIDERS: ADMIT Allergy & Immunology; ATTEND Psychiatry & Neurology Pain Medicine
DX: F10.20 Alcohol dependence, uncomplicated (principal); F14.20 Cocaine dependence, uncomplicated; F17.210 Nicotine dependence, cigarettes, uncomplicated; E78.5 Hyperlipidemia, unspecified; I10 Essential (primary) hypertension; L25.9 Unspecified contact dermatitis, unspecified cause; X08.8XXD Exposure to other specified smoke, fire and flames, subsequent encounter; T23.252D Burn of second degree of left palm, subsequent encounter; Z88.0 Allergy status to penicillin
CPT/HCPCS: 36415; 87389

== ENCOUNTER 2022-09-25 10:03 | Inpatient (IN) | payer OTHER ==
[2022-09-25 10:33] VITALS: BMI 34.5
[2022-09-25] MEDS ORDERED: ONDANSETRON *ODT* 4 MG TABLET SL PRN (11:07)
[2022-09-25] MEDS ORDERED: BENZOCAINE/MENTHOL (CHLORASEPTIC ) LOZENGE MM PRN (11:07)
[2022-09-25] MEDS ORDERED: IBUPROFEN 600 MG TABLET (FP) PO PRN (11:07)
[2022-09-25] MEDS ORDERED: MAG HYDROX/AL HYDROX/SIMETH 30 ML UNIT-DOSE CUP PO PRN (11:07)
[2022-09-25] MEDS ORDERED: IBUPROFEN 400 MG TABLET (FP) PO PRN (11:07)
[2022-09-25] MEDS ORDERED: POLYETHYLENE GLYCOL (HEALTHYLAX) 3350 17 GM PACKET PO PRN (11:07)
[2022-09-25] MEDS ORDERED: METHOCARBAMOL 500 MG TABLET PO PRN (11:07)
[2022-09-25] MEDS ORDERED: ACETAMINOPHEN 325 MG TABLET (FP) PO PRN (11:07)
[2022-09-25] MEDS ORDERED: hydrOXYzine PAMOATE 25 MG CAPSULE (FP) PO PRN (11:07)
[2022-09-25] MEDS ORDERED: DICYCLOMINE HCL 10 MG CAPSULE PO PRN (11:07)
[2022-09-25] MEDS ORDERED: BISMUTH SUBSALICYLATE 262 MG/15 ML BTL PO PRN (11:07)
[2022-09-25] MEDS ORDERED: MAGNESIUM HYDROX 2400MG/30ML ORAL SUSPENSION 30 ML CUP PO PRN (11:07)
[2022-09-25] MEDS ORDERED: BENZONATATE 200 MG CAPSULE PO PRN (11:07)
[2022-09-25] MEDS ORDERED: LOPERAMIDE HCL 2 MG CAPSULE PO PRN (11:07)
[2022-09-25] MEDS ORDERED: guaiFENesin 600 MG TABLET.ER (FP) PO PRN (11:07)
[2022-09-25] MEDS: PRENATAL VITAMINS W/ FOLIC ACID TABLET (FP) PO SCH (11:39)
[2022-09-25] MEDS: NICOTINE 7 MG/24 HOURS TOPICAL PATCH TD SCH ×2 (11:39→11:54)
[2022-09-25] MEDS ORDERED: PRENATAL VITAMINS W/ FOLIC ACID TABLET (FP) PO ONE (11:42)
[2022-09-25] MEDS ORDERED: NICOTINE 21 MG/24 HOURS TOPICAL PATCH ONE (11:42)
[2022-09-25] MEDS ORDERED: TENOFOVIR DISOPROXIL PO SCH (11:45)
[2022-09-25] MEDS ORDERED: EMTRICITABINE PO SCH (11:45)
[2022-09-25 14:32] LABS: MCH 26.6 pg (25.7-33.7); MCHC 33.3 g/dl (32.0-35.9); MEAN CELL VOLUME 79.7 fl (80-96); MEAN PLT VOLUME 9.8 fl (7.5-11.1); PLATELET COUNT 239 10^3/uL (134-434); RBC 5.27 M/mm3 (4.00-5.60); RDW 15.5 % (11.9-15.9); WHITE BLOOD COUNT 6.2 K/mm3 (4.0-10.0)
[2022-09-25 14:40] LABS: CALCIUM 9.6 mg/dL (8.5-10.1)
[2022-09-25 14:41] LABS: ALBUMIN 3.8 g/dl (3.4-5.0); BLOOD UREA NITROGEN 13.5 mg/dL (7-18)
[2022-09-25 14:44] LABS: CREATININE 1.1 mg/dL (0.55-1.3)
[2022-09-25 14:45] LABS: BILIRUBIN,TOTAL 0.2 mg/dL (0.2-1); TOT PROT 8.1 g/dl (6.4-8.2)
[2022-09-25 15:34] LABS: HIV INTERPRETATION NEGATIVE (NEGATIVE)
[2022-09-25] MEDS ORDERED: MELATONIN 5 MG TABLETS PO SCH (22:00)
[2022-09-25] MEDS: THIAMINE HCL 100 MG TABLET (FP) PO SCH (22:09)
[2022-09-25] MEDS: QUEtiapine FUMARATE 200 MG TABLET PO SCH (22:09)
[2022-09-26] MEDS ORDERED: PATIENT,S OWN MED:EMTRICITABINE 200MG/TENOFOVIR 300MG PO SCH (06:00)
[2022-09-26] MEDS ORDERED: EMTRICITABINE 200MG/TENOFOVIR 300MG PO SCH (06:00)
[2022-09-26] MEDS: DOLUTEGRAVIR SODIUM 50 MG TABLET PO SCH (07:58)
[2022-09-26] MEDS ORDERED: chlordiazePOXIDE HCL 25 MG CAPSULE PO PRN (09:00)
[2022-09-26] MEDS ORDERED: DOLUTEGRAVIR SODIUM 50 MG TABLET (NON-FORMULARY) PO SCH (10:00)
[2022-09-26] MEDS: QUEtiapine FUMARATE 200 MG TABLET PO SCH ×2 (10:06→21:57)
[2022-09-26] MEDS: NICOTINE 7 MG/24 HOURS TOPICAL PATCH TD SCH (10:06)
[2022-09-26] MEDS: PRENATAL VITAMINS W/ FOLIC ACID TABLET (FP) PO SCH (10:06)
[2022-09-26] MEDS: chlordiazePOXIDE HCL 25 MG CAPSULE PO SCH ×3 (10:08→22:00)
[2022-09-26] MEDS: chlordiazePOXIDE HCL 10 MG CAPSULE PO SCH (17:17)
[2022-09-26] MEDS: THIAMINE HCL 100 MG TABLET (FP) PO SCH (21:58)
[2022-09-27] MEDS: chlordiazePOXIDE HCL 25 MG CAPSULE PO SCH ×4 (05:31→22:26)
[2022-09-27] MEDS: EMTRICITABINE 200MG/TENOFOVIR 300MG PO SCH (08:00)
[2022-09-27] MEDS: DOLUTEGRAVIR SODIUM 50 MG TABLET PO SCH (08:00)
[2022-09-27] MEDS: NICOTINE 7 MG/24 HOURS TOPICAL PATCH TD SCH (10:12)
[2022-09-27] MEDS: PRENATAL VITAMINS W/ FOLIC ACID TABLET (FP) PO SCH (10:13)
[2022-09-27] MEDS: QUEtiapine FUMARATE 200 MG TABLET PO SCH ×2 (10:13→22:26)
[2022-09-27] MEDS: THIAMINE HCL 100 MG TABLET (FP) PO SCH (22:26)
[2022-09-28] MEDS: chlordiazePOXIDE HCL 25 MG CAPSULE PO SCH ×4 (05:49→22:26)
[2022-09-28] MEDS: EMTRICITABINE 200MG/TENOFOVIR 300MG PO SCH (07:42)
[2022-09-28] MEDS: DOLUTEGRAVIR SODIUM 50 MG TABLET PO SCH (07:42)
[2022-09-28] MEDS: PRENATAL VITAMINS W/ FOLIC ACID TABLET (FP) PO SCH (10:02)
[2022-09-28] MEDS: QUEtiapine FUMARATE 200 MG TABLET PO SCH ×2 (10:02→22:26)
[2022-09-28] MEDS: NICOTINE 7 MG/24 HOURS TOPICAL PATCH TD SCH (10:04)
[2022-09-28] MEDS: THIAMINE HCL 100 MG TABLET (FP) PO SCH (23:29)
[2022-09-29] MEDS ORDERED: chlordiazePOXIDE HCL 10 MG CAPSULE PO PRN
[2022-09-29] MEDS: chlordiazePOXIDE HCL 10 MG CAPSULE PO SCH ×4 (05:40→23:47)
[2022-09-29] MEDS: DOLUTEGRAVIR SODIUM 50 MG TABLET PO SCH (07:41)
[2022-09-29] MEDS: EMTRICITABINE 200MG/TENOFOVIR 300MG PO SCH (07:43)
[2022-09-29] MEDS: PRENATAL VITAMINS W/ FOLIC ACID TABLET (FP) PO SCH (10:15)
[2022-09-29] MEDS: QUEtiapine FUMARATE 200 MG TABLET PO SCH ×2 (10:15→22:19)
[2022-09-29] MEDS: NICOTINE 7 MG/24 HOURS TOPICAL PATCH TD SCH (10:16)
[2022-09-29] MEDS: THIAMINE HCL 100 MG TABLET (FP) PO SCH (22:20)
[2022-09-30] MEDS: chlordiazePOXIDE HCL 10 MG CAPSULE PO SCH ×2 (05:35→17:54)
[2022-09-30] MEDS: EMTRICITABINE 200MG/TENOFOVIR 300MG PO SCH (07:34)
[2022-09-30] MEDS: DOLUTEGRAVIR SODIUM 50 MG TABLET PO SCH (07:34)
[2022-09-30] MEDS: PRENATAL VITAMINS W/ FOLIC ACID TABLET (FP) PO SCH (10:37)
[2022-09-30] MEDS: NICOTINE 7 MG/24 HOURS TOPICAL PATCH TD SCH (10:37)
[2022-09-30] MEDS: QUEtiapine FUMARATE 200 MG TABLET PO SCH ×2 (10:37→22:30)
[2022-09-30 13:03] VITALS: RESP 18
[2022-09-30] MEDS: THIAMINE HCL 100 MG TABLET (FP) PO SCH (22:31)
[2022-10-01] MEDS ORDERED: chlordiazePOXIDE HCL 10 MG CAPSULE PO ONE (05:00)
[2022-10-01] MEDS: DOLUTEGRAVIR SODIUM 50 MG TABLET PO SCH (06:20)
[2022-10-01] MEDS: EMTRICITABINE 200MG/TENOFOVIR 300MG PO SCH (06:20)
[2022-10-01 09:15] VITALS: BP 152/102; PULSE 103; TEMP 98.1
[2022-10-01] MEDS: PRENATAL VITAMINS W/ FOLIC ACID TABLET (FP) PO SCH (10:52)
[2022-10-01] MEDS: NICOTINE 7 MG/24 HOURS TOPICAL PATCH TD SCH (10:52)
[2022-10-01] MEDS: QUEtiapine FUMARATE 200 MG TABLET PO SCH (10:52)
== END 2022-10-01 09:05 | disposition home or self-care (01) | DRG 774 ==
LOC: YASAS 10:03 → Y6N 11:17 → UNDOADMIN 11:17
PROVIDERS: ADMIT Allergy & Immunology; ATTEND Surgery
PROC: HZ2ZZZZ Detoxification Services for Substance Abuse Treatment (ICD-10-PCS; principal; 2022-09-25)
DX: F10.230 Alcohol dependence with withdrawal, uncomplicated (principal); F14.20 Cocaine dependence, uncomplicated; F12.20 Cannabis dependence, uncomplicated; F17.210 Nicotine dependence, cigarettes, uncomplicated; F19.282 Other psychoactive substance dependence with psychoactive substance-induced sleep disorder; F19.24 Other psychoactive substance dependence with psychoactive substance-induced mood disorder; F31.9 Bipolar disorder, unspecified; E78.5 Hyperlipidemia, unspecified; I11.0 Hypertensive heart disease with heart failure; E66.9 Obesity, unspecified; Z68.34 Body mass index [BMI] 34.0-34.9, adult; R73.03 Prediabetes; Z88.0 Allergy status to penicillin
CPT/HCPCS: 36415; 80053; 82140; 83036; 85027; 86780; 87389; C9803-CS; U0003; U0005

== ENCOUNTER 2023-01-08 11:26 | Inpatient (IN) | payer OTHER ==
[2023-01-08 13:04] VITALS: BMI 33.9
[2023-01-08] MEDS ORDERED: MAG HYDROX/AL HYDROX/SIMETH 30 ML UNIT-DOSE CUP PO PRN (15:10)
[2023-01-08] MEDS ORDERED: LOPERAMIDE HCL 2 MG CAPSULE PO PRN (15:10)
[2023-01-08] MEDS ORDERED: DICYCLOMINE HCL 10 MG CAPSULE PO PRN (15:10)
[2023-01-08] MEDS ORDERED: POLYETHYLENE GLYCOL (HEALTHYLAX) 3350 17 GM PACKET PO PRN (15:10)
[2023-01-08] MEDS ORDERED: IBUPROFEN 400 MG TABLET (FP) PO PRN (15:10)
[2023-01-08] MEDS ORDERED: BISMUTH SUBSALICYLATE 524 MG/30 ML PO PRN (15:10)
[2023-01-08] MEDS ORDERED: ACETAMINOPHEN 325 MG TABLET (FP) PO PRN (15:10)
[2023-01-08] MEDS ORDERED: ONDANSETRON *ODT* 4 MG TABLET SL PRN (15:10)
[2023-01-08] MEDS ORDERED: guaiFENesin 600 MG TABLET.ER (FP) PO PRN (15:10)
[2023-01-08] MEDS ORDERED: MAGNESIUM HYDROX 2400MG/30ML ORAL SUSPENSION 30 ML CUP PO PRN (15:10)
[2023-01-08] MEDS ORDERED: NALOXONE HCL 0.4 MG/ML VIAL IM PRN (15:10)
[2023-01-08] MEDS ORDERED: BENZONATATE 200 MG CAPSULE PO PRN (15:10)
[2023-01-08] MEDS ORDERED: BENZOCAINE/MENTHOL (CHLORASEPTIC ) LOZENGE MM PRN (15:10)
[2023-01-08] MEDS ORDERED: NALOXONE HCL (KLOXXADO) 8 MG SPRAY NS PRN (15:10)
[2023-01-08] MEDS: chlordiazePOXIDE HCL 10 MG CAPSULE PO SCH ×2 (17:59→22:21)
[2023-01-08] MEDS: PRENATAL VITAMINS W/ FOLIC ACID TABLET (FP) PO SCH (18:00)
[2023-01-08] MEDS: THIAMINE HCL 100 MG TABLET (FP) PO SCH (22:21)
[2023-01-08] MEDS: QUEtiapine FUMARATE 200 MG TABLET PO SCH (22:21)
[2023-01-08] MEDS: MELATONIN 5 MG TABLETS PO SCH (22:22)
[2023-01-08] MEDS: IBUPROFEN 600 MG TABLET (FP) PO PRN (22:23)
[2023-01-09] MEDS: chlordiazePOXIDE HCL 10 MG CAPSULE PO SCH (06:00)
[2023-01-09] MEDS ORDERED: LORazepam 1 MG TABLET PO PRN (09:11)
[2023-01-09] MEDS: PRENATAL VITAMINS W/ FOLIC ACID TABLET (FP) PO SCH (10:18)
[2023-01-09] MEDS: QUEtiapine FUMARATE 100 MG TABLET (FP) PO SCH (10:19)
[2023-01-09] MEDS: hydrOXYzine PAMOATE 25 MG CAPSULE (FP) PO PRN (10:19)
[2023-01-09] MEDS: METHOCARBAMOL 500 MG TABLET PO PRN (10:19)
[2023-01-09] MEDS: IBUPROFEN 600 MG TABLET (FP) PO PRN (10:21)
[2023-01-09] MEDS: LORazepam 2 MG TABLET PO SCH ×3 (10:23→22:23)
[2023-01-09 11:15] LABS: HEMATOCRIT 38.1 % (35.4-49); HEMOGLOBIN 12.2 GM/dL (11.7-16.9); MCH 26.6 pg (25.7-33.7); MCHC 32.1 g/dl (32.0-35.9); MEAN CELL VOLUME 82.9 fl (80-96); MEAN PLT VOLUME 9.9 fl (7.5-11.1); PLATELET COUNT 218 10^3/uL (134-434); RDW 15.4 % (11.9-15.9); WHITE BLOOD COUNT 5.4 K/mm3 (4.0-10.0)
[2023-01-09 13:55] LABS: POTASSIUM 3.6 mmol/L (3.5-5.1)
[2023-01-09 13:58] LABS: ALBUMIN 3.1 g/dl (3.4-5.0); BLOOD UREA NITROGEN 9.3 mg/dL (7-18)
[2023-01-09 14:03] LABS: BILIRUBIN,TOTAL 0.3 mg/dL (0.2-1); TOT PROT 6.5 g/dl (6.4-8.2)
[2023-01-09] MEDS ORDERED: amLODIPine BESYLATE 10 MG TABLET (FP) PO SCH (14:30)
[2023-01-09] MEDS: THIAMINE HCL 100 MG TABLET (FP) PO SCH (22:23)
[2023-01-09] MEDS: QUEtiapine FUMARATE 200 MG TABLET PO SCH (22:23)
[2023-01-09] MEDS: MELATONIN 5 MG TABLETS PO SCH (22:24)
[2023-01-10] MEDS: LORazepam 1 MG TABLET PO SCH ×4 (05:54→22:28)
[2023-01-10] MEDS: PRENATAL VITAMINS W/ FOLIC ACID TABLET (FP) PO SCH (10:24)
[2023-01-10] MEDS: QUEtiapine FUMARATE 100 MG TABLET (FP) PO SCH (10:24)
[2023-01-10] MEDS: hydrOXYzine PAMOATE 25 MG CAPSULE (FP) PO PRN (10:24)
[2023-01-10] MEDS: METHOCARBAMOL 500 MG TABLET PO PRN (10:24)
[2023-01-10] MEDS: IBUPROFEN 600 MG TABLET (FP) PO PRN ×2 (10:25→17:44)
[2023-01-10] MEDS: THIAMINE HCL 100 MG TABLET (FP) PO SCH (22:28)
[2023-01-10] MEDS: QUEtiapine FUMARATE 200 MG TABLET PO SCH (22:28)
[2023-01-10] MEDS: MELATONIN 5 MG TABLETS PO SCH (23:42)
[2023-01-11] MEDS: LORazepam 0.5 MG TABLET PO SCH ×4 (06:00→23:05)
[2023-01-11] MEDS: PRENATAL VITAMINS W/ FOLIC ACID TABLET (FP) PO SCH (10:00)
[2023-01-11] MEDS: METHOCARBAMOL 500 MG TABLET PO PRN ×2 (10:01→18:20)
[2023-01-11] MEDS: QUEtiapine FUMARATE 100 MG TABLET (FP) PO SCH (10:01)
[2023-01-11] MEDS: IBUPROFEN 600 MG TABLET (FP) PO PRN (10:04)
[2023-01-11] MEDS ORDERED: QUEtiapine FUMARATE 100 MG TABLET (FP) PO ONE (10:30)
[2023-01-11 21:54] VITALS: RESP 18
[2023-01-11] MEDS: QUEtiapine FUMARATE 200 MG TABLET PO SCH (22:44)
[2023-01-11] MEDS: THIAMINE HCL 100 MG TABLET (FP) PO SCH (22:44)
[2023-01-11] MEDS: MELATONIN 5 MG TABLETS PO SCH (22:45)
[2023-01-12] MEDS ORDERED: LORazepam 0.5 MG TABLET PO ONE (05:00)
[2023-01-12 09:55] VITALS: BP 147/92; PULSE 100; TEMP 97.5
[2023-01-12] MEDS: PRENATAL VITAMINS W/ FOLIC ACID TABLET (FP) PO SCH (09:56)
[2023-01-12] MEDS: QUEtiapine FUMARATE 200 MG TABLET PO SCH (09:57)
[2023-01-12] MEDS: METHOCARBAMOL 500 MG TABLET PO PRN (09:58)
[2023-01-12] MEDS: hydrOXYzine PAMOATE 25 MG CAPSULE (FP) PO PRN (09:58)
== END 2023-01-12 10:02 | disposition home or self-care (01) | DRG 774 ==
LOC: YASAS 11:26 → Y3N 15:43 → Y6N 21:22
PROVIDERS: ADMIT Allergy & Immunology; ATTEND Allergy & Immunology
PROC: HZ2ZZZZ Detoxification Services for Substance Abuse Treatment (ICD-10-PCS; principal; 2023-01-08)
DX: F10.230 Alcohol dependence with withdrawal, uncomplicated (principal); F14.20 Cocaine dependence, uncomplicated; F17.213 Nicotine dependence, cigarettes, with withdrawal; F19.24 Other psychoactive substance dependence with psychoactive substance-induced mood disorder; F25.9 Schizoaffective disorder, unspecified; G47.00 Insomnia, unspecified; E78.5 Hyperlipidemia, unspecified; I10 Essential (primary) hypertension; E66.9 Obesity, unspecified; Z68.33 Body mass index [BMI] 33.0-33.9, adult; Z88.0 Allergy status to penicillin
CPT/HCPCS: 36415; 80053; 85027; 86780; 87635; 87811

== ENCOUNTER 2023-01-28 13:20 | Inpatient (IN) | payer OTHER ==
[2023-01-28 14:11] VITALS: BMI 34.2
[2023-01-28] MEDS ORDERED: BISMUTH SUBSALICYLATE 524 MG/30 ML PO PRN (16:11)
[2023-01-28] MEDS ORDERED: IBUPROFEN 400 MG TABLET (FP) PO PRN (16:11)
[2023-01-28] MEDS ORDERED: DICYCLOMINE HCL 10 MG CAPSULE PO PRN (16:11)
[2023-01-28] MEDS ORDERED: chlordiazePOXIDE HCL 25 MG CAPSULE PO PRN (16:11)
[2023-01-28] MEDS ORDERED: METHOCARBAMOL 500 MG TABLET PO PRN (16:11)
[2023-01-28] MEDS ORDERED: hydrOXYzine PAMOATE 25 MG CAPSULE (FP) PO PRN (16:11)
[2023-01-28] MEDS ORDERED: NALOXONE HCL (KLOXXADO) 8 MG SPRAY NS PRN (16:11)
[2023-01-28] MEDS ORDERED: ONDANSETRON *ODT* 4 MG TABLET SL PRN (16:11)
[2023-01-28] MEDS ORDERED: LOPERAMIDE HCL 2 MG CAPSULE PO PRN (16:11)
[2023-01-28] MEDS ORDERED: BENZONATATE 200 MG CAPSULE PO PRN (16:11)
[2023-01-28] MEDS ORDERED: NALOXONE HCL 0.4 MG/ML VIAL IM PRN (16:11)
[2023-01-28] MEDS ORDERED: MAGNESIUM HYDROX 2400MG/30ML ORAL SUSPENSION 30 ML CUP PO PRN (16:11)
[2023-01-28] MEDS ORDERED: BENZOCAINE/MENTHOL (CHLORASEPTIC ) LOZENGE MM PRN (16:11)
[2023-01-28] MEDS ORDERED: MAG HYDROX/AL HYDROX/SIMETH 30 ML UNIT-DOSE CUP PO PRN (16:11)
[2023-01-28] MEDS ORDERED: guaiFENesin 600 MG TABLET.ER (FP) PO PRN (16:11)
[2023-01-28] MEDS ORDERED: POLYETHYLENE GLYCOL (HEALTHYLAX) 3350 17 GM PACKET PO PRN (16:11)
[2023-01-28] MEDS: chlordiazePOXIDE HCL 25 MG CAPSULE PO SCH ×2 (18:00→22:15)
[2023-01-28] MEDS: IBUPROFEN 600 MG TABLET (FP) PO PRN (18:04)
[2023-01-28] MEDS ORDERED: QUEtiapine FUMARATE 100 MG TABLET (FP) PO SCH (22:00)
[2023-01-28] MEDS: QUEtiapine FUMARATE 200 MG TABLET PO SCH (22:15)
[2023-01-28] MEDS: THIAMINE HCL 100 MG TABLET (FP) PO SCH (22:15)
[2023-01-28] MEDS: ACETAMINOPHEN 325 MG TABLET (FP) PO PRN (22:17)
[2023-01-28] MEDS: MELATONIN 5 MG TABLETS PO SCH (23:24)
[2023-01-28] MEDS: AMOXICILLIN 500 MG CAPSULE (FP) PO SCH (23:27)
[2023-01-29] MEDS: IBUPROFEN 600 MG TABLET (FP) PO PRN ×3 (05:39→22:31)
[2023-01-29] MEDS: AMOXICILLIN 500 MG CAPSULE (FP) PO SCH ×3 (05:40→22:28)
[2023-01-29] MEDS: chlordiazePOXIDE HCL 25 MG CAPSULE PO SCH ×4 (05:40→22:28)
[2023-01-29] MEDS: QUEtiapine FUMARATE 100 MG TABLET (FP) PO SCH (10:09)
[2023-01-29] MEDS: PRENATAL VITAMINS W/ FOLIC ACID TABLET (FP) PO SCH (10:09)
[2023-01-29] MEDS: ACETAMINOPHEN 325 MG TABLET (FP) PO PRN (10:12)
[2023-01-29 10:47] LABS: HEMATOCRIT 39.9 % (35.4-49); HEMOGLOBIN 13.6 GM/dL (11.7-16.9); MCH 27.5 pg (25.7-33.7); MEAN CELL VOLUME 80.9 fl (80-96); MEAN PLT VOLUME 9.8 fl (7.5-11.1); PLATELET COUNT 246 10^3/uL (134-434); RBC 4.93 M/mm3 (4.00-5.60); RDW 15.4 % (11.9-15.9); WHITE BLOOD COUNT 5.4 K/mm3 (4.0-10.0)
[2023-01-29 10:56] LABS: POTASSIUM 4.4 mmol/L (3.5-5.1)
[2023-01-29 10:59] LABS: CALCIUM 9.3 mg/dL (8.5-10.1)
[2023-01-29 11:00] LABS: ALBUMIN 3.8 g/dl (3.4-5.0); BLOOD UREA NITROGEN 13.5 mg/dL (7-18)
[2023-01-29 11:04] LABS: BILIRUBIN,TOTAL 0.4 mg/dL (0.2-1)
[2023-01-29 11:05] LABS: TOT PROT 7.7 g/dl (6.4-8.2)
[2023-01-29] MEDS: MELATONIN 5 MG TABLETS PO SCH (22:27)
[2023-01-29] MEDS: THIAMINE HCL 100 MG TABLET (FP) PO SCH (22:28)
[2023-01-29] MEDS: QUEtiapine FUMARATE 200 MG TABLET PO SCH (22:28)
[2023-01-30] MEDS: chlordiazePOXIDE HCL 25 MG CAPSULE PO SCH ×4 (06:00→22:55)
[2023-01-30] MEDS: AMOXICILLIN 500 MG CAPSULE (FP) PO SCH ×3 (06:00→22:11)
[2023-01-30] MEDS: IBUPROFEN 600 MG TABLET (FP) PO PRN ×2 (06:01→17:54)
[2023-01-30] MEDS: PRENATAL VITAMINS W/ FOLIC ACID TABLET (FP) PO SCH (10:05)
[2023-01-30] MEDS: QUEtiapine FUMARATE 100 MG TABLET (FP) PO SCH (10:06)
[2023-01-30] MEDS: MELATONIN 5 MG TABLETS PO SCH (22:10)
[2023-01-30] MEDS: QUEtiapine FUMARATE 200 MG TABLET PO SCH (22:11)
[2023-01-30] MEDS: ACETAMINOPHEN 325 MG TABLET (FP) PO PRN (22:11)
[2023-01-30] MEDS: THIAMINE HCL 100 MG TABLET (FP) PO SCH (22:11)
[2023-01-31] MEDS ORDERED: chlordiazePOXIDE HCL 10 MG CAPSULE PO PRN
[2023-01-31] MEDS: chlordiazePOXIDE HCL 10 MG CAPSULE PO SCH ×4 (05:37→22:10)
[2023-01-31] MEDS: AMOXICILLIN 500 MG CAPSULE (FP) PO SCH ×3 (05:37→22:10)
[2023-01-31] MEDS: QUEtiapine FUMARATE 100 MG TABLET (FP) PO SCH (10:27)
[2023-01-31] MEDS: PRENATAL VITAMINS W/ FOLIC ACID TABLET (FP) PO SCH (10:27)
[2023-01-31 17:36] VITALS: RESP 18
[2023-01-31 21:22] VITALS: TEMP 97.7
[2023-01-31] MEDS: QUEtiapine FUMARATE 200 MG TABLET PO SCH (22:10)
[2023-01-31] MEDS: THIAMINE HCL 100 MG TABLET (FP) PO SCH (22:10)
[2023-01-31] MEDS: MELATONIN 5 MG TABLETS PO SCH (22:10)
[2023-01-31] MEDS: IBUPROFEN 600 MG TABLET (FP) PO PRN (22:12)
[2023-01-31 23:20] VITALS: BP 134/81; PULSE 78
[2023-02-01] MEDS ORDERED: chlordiazePOXIDE HCL 10 MG CAPSULE PO SCH (05:00)
[2023-02-01] MEDS: AMOXICILLIN 500 MG CAPSULE (FP) PO SCH (05:32)
[2023-02-02] MEDS ORDERED: chlordiazePOXIDE HCL 10 MG CAPSULE PO ONE (05:00)
== END 2023-02-01 06:52 | disposition home or self-care (01) | DRG 774 ==
LOC: YASAS 13:20 → Y6N 17:26
PROVIDERS: ADMIT Allergy & Immunology; ATTEND Surgery
PROC: HZ2ZZZZ Detoxification Services for Substance Abuse Treatment (ICD-10-PCS; principal; 2023-01-28)
DX: F10.230 Alcohol dependence with withdrawal, uncomplicated (principal); F14.20 Cocaine dependence, uncomplicated; F17.210 Nicotine dependence, cigarettes, uncomplicated; F31.9 Bipolar disorder, unspecified; F19.24 Other psychoactive substance dependence with psychoactive substance-induced mood disorder; F90.9 Attention-deficit hyperactivity disorder, unspecified type; G47.00 Insomnia, unspecified; E66.9 Obesity, unspecified; Z68.34 Body mass index [BMI] 34.0-34.9, adult; Z88.0 Allergy status to penicillin
CPT/HCPCS: 36415; 80053; 85027; 86780; 87491; 87591; 87635; 87661

== ENCOUNTER 2023-07-10 08:59 | Inpatient (IN) | payer OTHER ==
[2023-07-10 09:21] VITALS: BMI 37.5
[2023-07-10] MEDS ORDERED: BENZONATATE 200 MG CAPSULE PO PRN (10:06)
[2023-07-10] MEDS ORDERED: hydrOXYzine PAMOATE 25 MG CAPSULE (FP) PO PRN (10:06)
[2023-07-10] MEDS ORDERED: POLYETHYLENE GLYCOL (HEALTHYLAX) 3350 17 GM PACKET PO PRN (10:06)
[2023-07-10] MEDS ORDERED: MAG HYDROX/AL HYDROX/SIMETH 30 ML UNIT-DOSE CUP PO PRN (10:06)
[2023-07-10] MEDS ORDERED: guaiFENesin 600 MG TABLET.ER (FP) PO PRN (10:06)
[2023-07-10] MEDS ORDERED: MAGNESIUM HYDROX 2400MG/30ML ORAL SUSPENSION 30 ML CUP PO PRN (10:06)
[2023-07-10] MEDS ORDERED: NALOXONE HCL 0.4 MG/ML VIAL IM PRN (10:06)
[2023-07-10] MEDS ORDERED: NICOTINE POLACRILEX 2 MG GUM BUC PRN (10:06)
[2023-07-10] MEDS ORDERED: BENZOCAINE/MENTHOL (CHLORASEPTIC ) LOZENGE MM PRN (10:06)
[2023-07-10] MEDS ORDERED: ACETAMINOPHEN 325 MG TABLET (FP) PO PRN (10:06)
[2023-07-10] MEDS ORDERED: NALOXONE HCL (KLOXXADO) 8 MG SPRAY NS PRN (10:06)
[2023-07-10] MEDS ORDERED: ONDANSETRON *ODT* 4 MG TABLET SL PRN (10:06)
[2023-07-10] MEDS ORDERED: BISMUTH SUBSALICYLATE 262 MG/15 ML BTL PO PRN (10:06)
[2023-07-10] MEDS ORDERED: chlordiazePOXIDE HCL 25 MG CAPSULE PO PRN (10:16)
[2023-07-10] MEDS: chlordiazePOXIDE HCL 25 MG CAPSULE PO SCH (10:35)
[2023-07-10] MEDS: LOPERAMIDE HCL 2 MG CAPSULE PO PRN (17:39)
[2023-07-10] MEDS ORDERED: MELATONIN 5 MG TABLETS PO SCH (22:00)
[2023-07-10] MEDS: QUEtiapine FUMARATE 200 MG TABLET PO SCH (22:23)
[2023-07-10] MEDS: THIAMINE HCL 100 MG TABLET (FP) PO SCH (22:23)
[2023-07-11] MEDS: NICOTINE 14 MG/24 HOURS TOPICAL PATCH TD SCH (10:22)
[2023-07-11] MEDS: PRENATAL VITAMINS W/ FOLIC ACID TABLET (FP) PO SCH (10:22)
[2023-07-11 11:00] LABS: HEMATOCRIT 42.2 % (35.4-49); HEMOGLOBIN 13.8 GM/dL (11.7-16.9); MCH 26.7 pg (25.7-33.7); MCHC 32.6 g/dl (32.0-35.9); MEAN CELL VOLUME 81.8 fl (80-96); MEAN PLT VOLUME 9.4 fl (7.5-11.1); PLATELET COUNT 206 10^3/uL (134-434); RBC 5.15 M/mm3 (4.00-5.60); RDW 14.9 % (11.9-15.9); WHITE BLOOD COUNT 6.9 K/mm3 (4.0-10.0)
[2023-07-11 11:01] LABS: CHLORIDE 106 mmol/L (98-107); POTASSIUM 4.3 mmol/L (3.5-5.1); SODIUM 142 mmol/L (136-145)
[2023-07-11 11:11] LABS: CALCIUM 9.5 mg/dL (8.5-10.1)
[2023-07-11 11:12] LABS: ANION GAP 5 mmol/L (4-13); BLOOD UREA NITROGEN 18.2 mg/dL (7-18); CO2 30 mmol/L (21-32); GLUCOSE,RANDOM 90 mg/dL (74-106)
[2023-07-11 11:15] LABS: CREATININE 1.1 mg/dL (0.55-1.3); SGOT/AST 25 U/L (15-37); SGPT/ALT 33 U/L (13-61)
[2023-07-11 11:16] LABS: BILIRUBIN,TOTAL 0.4 mg/dL (0.2-1)
[2023-07-11 11:17] LABS: TOT PROT 8.1 g/dl (6.4-8.2)
[2023-07-11 11:18] LABS: ALK PHOS 98 U/L (45-117)
[2023-07-11 13:59] LABS: HIV INTERPRETATION NEGATIVE (NEGATIVE)
[2023-07-11] MEDS: IBUPROFEN 600 MG TABLET (FP) PO PRN (17:20)
[2023-07-12] MEDS: chlordiazePOXIDE HCL 25 MG CAPSULE PO SCH (05:41)
[2023-07-12] MEDS: BACITRACIN 0.9 GM PACKET TP SCH (10:43)
[2023-07-12] MEDS: METHOCARBAMOL 500 MG TABLET PO PRN (10:44)
[2023-07-13] MEDS ORDERED: chlordiazePOXIDE HCL 10 MG CAPSULE PO PRN
[2023-07-13] MEDS: chlordiazePOXIDE HCL 10 MG CAPSULE PO SCH (05:24)
[2023-07-13] MEDS: IBUPROFEN 400 MG TABLET (FP) PO PRN (17:44)
[2023-07-14] MEDS: chlordiazePOXIDE HCL 10 MG CAPSULE PO SCH (05:29)
[2023-07-15] MEDS: chlordiazePOXIDE HCL 10 MG CAPSULE PO ONE (05:47)
[2023-07-15 14:19] VITALS: BP 141/96; PULSE 92; RESP 18; TEMP 98.8
== END 2023-07-15 13:15 | disposition home or self-care (01) | DRG 774 ==
LOC: YASAS 08:59 → Y6N 10:30
PROVIDERS: ADMIT Allergy & Immunology; ATTEND Surgery
PROC: HZ2ZZZZ Detoxification Services for Substance Abuse Treatment (ICD-10-PCS; principal; 2023-07-10)
DX: F10.230 Alcohol dependence with withdrawal, uncomplicated (principal); F14.20 Cocaine dependence, uncomplicated; F17.213 Nicotine dependence, cigarettes, with withdrawal; F31.9 Bipolar disorder, unspecified; F25.9 Schizoaffective disorder, unspecified; F19.24 Other psychoactive substance dependence with psychoactive substance-induced mood disorder; E78.5 Hyperlipidemia, unspecified; I10 Essential (primary) hypertension; E66.8 Other obesity; Z68.37 Body mass index [BMI] 37.0-37.9, adult; Z86.19 Personal history of other infectious and parasitic diseases; Z88.0 Allergy status to penicillin
CPT/HCPCS: 36415; 80053; 80307; 85027; 86780; 87389; 87635; 87811; 93005; 93010

== ENCOUNTER 2023-07-15 14:14 | Inpatient (IN) | payer OTHER ==
[2023-07-15] MEDS ORDERED: NALOXONE HCL (KLOXXADO) 8 MG SPRAY NS PRN (14:25)
[2023-07-15] MEDS ORDERED: MAG HYDROX/AL HYDROX/SIMETH 30 ML UNIT-DOSE CUP PO PRN (14:25)
[2023-07-15] MEDS ORDERED: IBUPROFEN 400 MG TABLET (FP) PO PRN (14:25)
[2023-07-15] MEDS ORDERED: LOPERAMIDE HCL 2 MG CAPSULE PO PRN (14:25)
[2023-07-15] MEDS ORDERED: MAGNESIUM HYDROX 2400MG/30ML ORAL SUSPENSION 30 ML CUP PO PRN (14:25)
[2023-07-15] MEDS ORDERED: ACETAMINOPHEN 325 MG TABLET (FP) PO PRN (14:25)
[2023-07-15] MEDS ORDERED: NICOTINE 7 MG/24 HOURS TOPICAL PATCH TD PRN (14:25)
[2023-07-15] MEDS ORDERED: BENZONATATE 200 MG CAPSULE PO PRN (14:25)
[2023-07-15] MEDS ORDERED: NALOXONE HCL 0.4 MG/ML VIAL IVPUSH PRN (14:25)
[2023-07-15] MEDS ORDERED: POLYETHYLENE GLYCOL (HEALTHYLAX) 3350 17 GM PACKET PO PRN (14:25)
[2023-07-15] MEDS ORDERED: guaiFENesin 600 MG TABLET.ER (FP) PO PRN (14:25)
[2023-07-15] MEDS ORDERED: IBUPROFEN 600 MG TABLET (FP) PO PRN (14:25)
[2023-07-15] MEDS ORDERED: METHOCARBAMOL 500 MG TABLET PO PRN (14:25)
[2023-07-15] MEDS ORDERED: BENZOCAINE/MENTHOL (CHLORASEPTIC ) LOZENGE MM PRN (14:25)
[2023-07-15] MEDS: MELATONIN 5 MG TABLETS PO SCH (22:15)
[2023-07-15] MEDS: THIAMINE HCL 100 MG TABLET (FP) PO SCH (22:15)
[2023-07-15] MEDS: QUEtiapine FUMARATE 200 MG TABLET PO SCH (22:15)
[2023-07-16] MEDS: PRENATAL VITAMINS W/ FOLIC ACID TABLET (FP) PO SCH (10:09)
[2023-07-16] MEDS: ACYCLOVIR 400 MG TABLET PO SCH (21:43)
[2023-07-18] MEDS: HYDROCHLOROTHIAZIDE 25 MG TABLET (FP) PO SCH (14:13)
[2023-07-20] MEDS: cloNIDine HCL 0.1 MG TABLET PO PRN (06:01)
[2023-07-20] MEDS: hydrOXYzine PAMOATE 25 MG CAPSULE (FP) PO PRN (06:01)
[2023-07-20] MEDS: HYDROCHLOROTHIAZIDE 25 MG TABLET (FP) PO SCH (10:39)
[2023-07-26] MEDS: METOPROLOL TARTRATE 25 MG TABLET (FP) PO SCH (10:57)
[2023-08-01 07:10] VITALS: TEMP 97.5
[2023-08-01] MEDS: HYDROCHLOROTHIAZIDE 25 MG TABLET (FP) PO ONE (14:03)
[2023-08-01] MEDS: QUEtiapine FUMARATE 200 MG TABLET PO ONE (14:03)
[2023-08-01] MEDS: METOPROLOL TARTRATE 25 MG TABLET (FP) PO ONE (14:03)
[2023-08-02 06:51] VITALS: RESP 16
[2023-08-02 08:54] VITALS: BP 126/74; PULSE 93
== END 2023-08-02 09:12 | disposition home or self-care (01) | DRG 772 ==
LOC: YASAS 14:14 → Y3W 14:16
PROVIDERS: ADMIT Allergy & Immunology; ATTEND Psychiatry & Neurology Pain Medicine
PROC: HZ42ZZZ Group Counseling for Substance Abuse Treatment, Cognitive-Behavioral (ICD-10-PCS; principal; 2023-07-15)
DX: F10.20 Alcohol dependence, uncomplicated (principal); F14.20 Cocaine dependence, uncomplicated; F17.210 Nicotine dependence, cigarettes, uncomplicated; F31.9 Bipolar disorder, unspecified; F19.282 Other psychoactive substance dependence with psychoactive substance-induced sleep disorder; F19.24 Other psychoactive substance dependence with psychoactive substance-induced mood disorder; G47.00 Insomnia, unspecified; I10 Essential (primary) hypertension; B00.1 Herpesviral vesicular dermatitis; Z86.19 Personal history of other infectious and parasitic diseases; Z88.0 Allergy status to penicillin
CPT/HCPCS: 36415; 82140; 86803; 87522

== ENCOUNTER 2023-11-08 08:22 | Inpatient (IN) | payer OTHER ==
[2023-11-08 08:45] VITALS: BMI 35.5
[2023-11-08] MEDS ORDERED: NALOXONE HCL 0.4 MG/ML VIAL IM PRN (09:16)
[2023-11-08] MEDS ORDERED: guaiFENesin 600 MG TABLET.ER (FP) PO PRN (09:16)
[2023-11-08] MEDS ORDERED: hydrOXYzine PAMOATE 25 MG CAPSULE (FP) PO PRN (09:16)
[2023-11-08] MEDS ORDERED: POLYETHYLENE GLYCOL (HEALTHYLAX) 3350 17 GM PACKET PO PRN (09:16)
[2023-11-08] MEDS ORDERED: ONDANSETRON *ODT* 4 MG TABLET SL PRN (09:16)
[2023-11-08] MEDS ORDERED: ACETAMINOPHEN 325 MG TABLET (FP) PO PRN (09:16)
[2023-11-08] MEDS ORDERED: METHOCARBAMOL 500 MG TABLET PO PRN (09:16)
[2023-11-08] MEDS ORDERED: NALOXONE (NARCAN) HCL 4 MG/0.1 ML SPRAY NS PRN (09:16)
[2023-11-08] MEDS ORDERED: BENZONATATE 200 MG CAPSULE PO PRN (09:16)
[2023-11-08] MEDS ORDERED: NICOTINE POLACRILEX 2 MG GUM BUC PRN (09:16)
[2023-11-08] MEDS ORDERED: BISMUTH SUBSALICYLATE 524 MG/30 ML PO PRN (09:16)
[2023-11-08] MEDS ORDERED: chlordiazePOXIDE HCL 25 MG CAPSULE PO PRN (09:16)
[2023-11-08] MEDS ORDERED: MAGNESIUM HYDROX 2400MG/30ML ORAL SUSPENSION 30 ML CUP PO PRN (09:16)
[2023-11-08] MEDS ORDERED: IBUPROFEN 600 MG TABLET (FP) PO PRN (09:16)
[2023-11-08] MEDS ORDERED: IBUPROFEN 400 MG TABLET (FP) PO PRN (09:16)
[2023-11-08] MEDS ORDERED: DICYCLOMINE HCL 10 MG CAPSULE PO PRN (09:16)
[2023-11-08] MEDS ORDERED: LOPERAMIDE HCL 2 MG CAPSULE PO PRN (09:16)
[2023-11-08] MEDS ORDERED: BENZOCAINE/MENTHOL (CHLORASEPTIC ) LOZENGE MM PRN (09:16)
[2023-11-08] MEDS ORDERED: chlordiazePOXIDE HCL 25 MG CAPSULE ONE (10:20)
[2023-11-08] MEDS ORDERED: PRENATAL VITAMINS W/ FOLIC ACID TABLET (FP) PO ONE (10:20)
[2023-11-08] MEDS: chlordiazePOXIDE HCL 25 MG CAPSULE PO SCH (10:22)
[2023-11-08] MEDS: PRENATAL VITAMINS W/ FOLIC ACID TABLET (FP) PO SCH (10:22)
[2023-11-08] MEDS: QUEtiapine FUMARATE 200 MG TABLET PO SCH (14:40)
[2023-11-08 16:07] LABS: HIV INTERPRETATION NEGATIVE (NEGATIVE)
[2023-11-08] MEDS ORDERED: MELATONIN 5 MG TABLETS PO SCH (22:00)
[2023-11-08] MEDS: THIAMINE 100 MG TABLET PO SCH (22:56)
[2023-11-09] MEDS: DOLUTEGRAVIR SODIUM 50 MG TABLET (NON-FORMULARY) PO SCH ×2 (08:48→11:09)
[2023-11-09] MEDS: EMTRICITABINE 200MG/TENOFOVIR 300MG PO SCH ×2 (08:49→11:09)
[2023-11-09] MEDS: HYDROCHLOROTHIAZIDE 25 MG TABLET (FP) PO SCH (11:07)
[2023-11-09] MEDS: METOPROLOL TARTRATE 25 MG TABLET (FP) PO SCH (11:08)
[2023-11-09] MEDS: SULFAMETHOXAZOLE/TRIMETHOPRIM 800MG/160MG D.S. TABLET PO SCH (22:40)
[2023-11-10] MEDS: chlordiazePOXIDE HCL 25 MG CAPSULE PO SCH (05:46)
[2023-11-10] MEDS: BACITRACIN 0.9 GM PACKET TP SCH (10:15)
[2023-11-10 11:58] LABS: POTASSIUM 4.3 mmol/L (3.5-5.1)
[2023-11-10 12:02] LABS: CALCIUM 9.4 mg/dL (8.5-10.1)
[2023-11-10 12:03] LABS: BLOOD UREA NITROGEN 15.1 mg/dL (7-18)
[2023-11-10 12:15] LABS: EOS % 3.7 % (0-4.5); HEMATOCRIT 36.1 % (35.4-49); LYMPH % 39.6 % (8-40); MCH 26.9 pg (25.7-33.7); MCHC 33.2 g/dl (32.0-35.9); MEAN CELL VOLUME 81.1 fl (80-96); MEAN PLT VOLUME 9.3 fl (7.5-11.1); MONO % 11.1 % (3.8-10.2); NEUT % 44.6 % (42.8-82.8); PLATELET COUNT 221 10^3/uL (134-434); RBC 4.46 M/mm3 (4.00-5.60); RDW 15.6 % (11.9-15.9); WHITE BLOOD COUNT 4.8 K/mm3 (4.0-10.0)
[2023-11-10 13:01] LABS: HIV INTERPRETATION NEGATIVE (NEGATIVE)
[2023-11-10] MEDS: MAG HYDROX/AL HYDROX/SIMETH 30 ML UNIT-DOSE CUP PO PRN (22:25)
[2023-11-11] MEDS ORDERED: chlordiazePOXIDE HCL 10 MG CAPSULE PO PRN
[2023-11-11] MEDS: chlordiazePOXIDE HCL 10 MG CAPSULE PO SCH (06:12)
[2023-11-11] MEDS: BACITRACIN 0.9 GM PACKET TP SCH (10:27)
[2023-11-11] MEDS: NALTREXONE HCL 50 MG TABLET PO SCH (14:50)
[2023-11-12] MEDS: chlordiazePOXIDE HCL 10 MG CAPSULE PO SCH (06:13)
[2023-11-13] MEDS: chlordiazePOXIDE HCL 10 MG CAPSULE PO ONE (05:47)
[2023-11-13 08:42] VITALS: BP 124/71; PULSE 95; RESP 16; TEMP 98.4
== END 2023-11-13 11:50 | disposition other institution (70) | DRG 774 ==
LOC: YASAS 08:22 → Y6N 11:37
PROVIDERS: ADMIT Allergy & Immunology; ATTEND Surgery
PROC: HZ2ZZZZ Detoxification Services for Substance Abuse Treatment (ICD-10-PCS; principal; 2023-11-08)
DX: F10.230 Alcohol dependence with withdrawal, uncomplicated (principal); F14.20 Cocaine dependence, uncomplicated; F17.210 Nicotine dependence, cigarettes, uncomplicated; F31.9 Bipolar disorder, unspecified; F19.24 Other psychoactive substance dependence with psychoactive substance-induced mood disorder; F90.9 Attention-deficit hyperactivity disorder, unspecified type; E78.5 Hyperlipidemia, unspecified; I10 Essential (primary) hypertension; L97.829 Non-pressure chronic ulcer of other part of left lower leg with unspecified severity; R73.03 Prediabetes; Z29.81 Encounter for HIV pre-exposure prophylaxis; Z86.19 Personal history of other infectious and parasitic diseases; Z88.0 Allergy status to penicillin
CPT/HCPCS: 36415; 80048; 80305; 80307; 82140; 85025; 86780; 87389; 93005; 93010

== ENCOUNTER 2024-03-18 09:13 | Inpatient (IN) | payer OTHER ==
[2024-03-18 10:05] VITALS: BMI 33.9
[2024-03-18] MEDS ORDERED: MAG HYDROX/AL HYDROX/SIMETH 30 ML UNIT-DOSE CUP PO PRN (10:37)
[2024-03-18] MEDS ORDERED: ACETAMINOPHEN 325 MG TABLET (FP) PO PRN (10:37)
[2024-03-18] MEDS ORDERED: BENZONATATE 200 MG CAPSULE PO PRN (10:37)
[2024-03-18] MEDS ORDERED: BENZOCAINE/MENTHOL (CHLORASEPTIC ) LOZENGE MM PRN (10:37)
[2024-03-18] MEDS ORDERED: MAGNESIUM HYDROX 2400MG/30ML ORAL SUSPENSION 30 ML CUP PO PRN (10:37)
[2024-03-18] MEDS ORDERED: guaiFENesin 600 MG TABLET.ER (FP) PO PRN (10:37)
[2024-03-18] MEDS ORDERED: IBUPROFEN 400 MG TABLET (FP) PO PRN (10:37)
[2024-03-18] MEDS ORDERED: IBUPROFEN 600 MG TABLET (FP) PO PRN (10:37)
[2024-03-18] MEDS ORDERED: NALOXONE (NARCAN) HCL 4 MG/0.1 ML SPRAY NS PRN (10:37)
[2024-03-18] MEDS ORDERED: hydrOXYzine PAMOATE 25 MG CAPSULE (FP) PO PRN (10:37)
[2024-03-18] MEDS ORDERED: LOPERAMIDE HCL 2 MG CAPSULE PO PRN (10:37)
[2024-03-18] MEDS ORDERED: POLYETHYLENE GLYCOL (HEALTHYLAX) 3350 17 GM PACKET PO PRN (10:37)
[2024-03-18] MEDS: PRENATAL VITAMINS W/ FOLIC ACID TABLET (FP) PO SCH (11:48)
[2024-03-18] MEDS: HYDROCHLOROTHIAZIDE 25 MG TABLET (FP) PO SCH (12:10)
[2024-03-18 17:58] LABS: HIV INTERPRETATION NEGATIVE (NEGATIVE)
[2024-03-18] MEDS: QUEtiapine FUMARATE 200 MG TABLET PO SCH (21:43)
[2024-03-18] MEDS: MELATONIN 5 MG TABLETS PO SCH (21:43)
[2024-03-18] MEDS: THIAMINE 100 MG TABLET PO SCH (21:43)
[2024-03-19 01:58] LABS: PH,URINE 5.5 (5.0-8.0); URINE APPEARANCE CLEAR; URINE BILIRUBIN NEGATIVE (NEGATIVE); URINE COLOR YELLOW; URINE GLUCOSE (UA) NEGATIVE (NEGATIVE); URINE KETONE NEGATIVE (NEGATIVE); URINE LEUK ESTERASE NEGATIVE (NEGATIVE); URINE NITRITE NEGATIVE (NEGATIVE); URINE PROTEIN NEGATIVE (NEGATIVE); URINE UROBILINOGEN 0.2 mg/dL (0.2-1.0)
[2024-03-19 15:26] LABS: HEMATOCRIT 39.4 % (35.4-49); HEMOGLOBIN 13.1 GM/dL (11.7-16.9); MCH 26.9 pg (25.7-33.7); MCHC 33.2 g/dl (32.0-35.9); MEAN CELL VOLUME 81.2 fl (80-96); MEAN PLT VOLUME 9.6 fl (7.5-11.1); PLATELET COUNT 187 10^3/uL (134-434); RBC 4.85 M/mm3 (4.00-5.60); RDW 15.5 % (11.9-15.9); WHITE BLOOD COUNT 4.8 K/mm3 (4.0-10.0)
[2024-03-19 15:42] LABS: ALBUMIN 3.6 g/dl (3.4-5.0); BLOOD UREA NITROGEN 15.6 mg/dL (7-18); CALCIUM 9.6 mg/dL (8.5-10.1)
[2024-03-19 15:45] LABS: CREATININE 1.1 mg/dL (0.55-1.3)
[2024-03-19 15:47] LABS: BILIRUBIN,TOTAL 0.3 mg/dL (0.2-1)
[2024-03-19 16:04] LABS: CHOLESTEROL 235 mg/dL (50-200)
[2024-03-19 16:05] LABS: LDL CHOLESTEROL (ONLY SJRH) 162 mg/dL (5-100)
[2024-03-19 16:07] LABS: HDL CHOLESTEROL 38 mg/dL (40-60)
[2024-03-19 16:16] LABS: SYPHILIS W/ RPR CONF NON-REACTIVE (NONREACTIVE)
[2024-03-19 20:12] LABS: HIV INTERPRETATION NEGATIVE (NEGATIVE)
[2024-03-27] MEDS: ATORVASTATIN CA 10 MG TABLET (FP) PO SCH (21:49)
[2024-03-30] MEDS: SULFAMETHOXAZOLE/TRIMETHOPRIM 800MG/160MG D.S. TABLET PO SCH (14:38)
[2024-03-31 06:48] VITALS: RESP 18; TEMP 97.1
[2024-04-01] MEDS: NALOXONE (NYS OPIOID OVERDOSE PROGRAM) 4 MG/0.1 ML SPRAY NS PRN (08:50)
[2024-04-01 09:24] VITALS: BP 135/89; PULSE 95
== END 2024-04-01 09:46 | disposition home or self-care (01) | DRG 772 ==
LOC: YASAS 09:13 → Y3W 11:28
PROVIDERS: ADMIT Psychiatry & Neurology Pain Medicine; ATTEND Psychiatry & Neurology Pain Medicine
PROC: HZ42ZZZ Group Counseling for Substance Abuse Treatment, Cognitive-Behavioral (ICD-10-PCS; principal; 2024-03-18)
DX: F10.20 Alcohol dependence, uncomplicated (principal); F14.20 Cocaine dependence, uncomplicated; F31.9 Bipolar disorder, unspecified; F90.9 Attention-deficit hyperactivity disorder, unspecified type; E78.5 Hyperlipidemia, unspecified; I10 Essential (primary) hypertension; L73.8 Other specified follicular disorders; R73.03 Prediabetes; Z87.891 Personal history of nicotine dependence; Z86.19 Personal history of other infectious and parasitic diseases
CPT/HCPCS: 36415; 80053; 80061; 80305; 80307; 81003; 83036; 84478; 85027; 86780; 86803; 87389; 87522; 87811

== ENCOUNTER 2024-05-20 08:07 | Inpatient (IN) | payer OTHER ==
[2024-05-20 09:00] VITALS: BMI 34.2
[2024-05-20] MEDS ORDERED: hydrOXYzine PAMOATE 25 MG CAPSULE (FP) PO PRN (09:51)
[2024-05-20] MEDS ORDERED: NALOXONE (NARCAN) HCL 4 MG/0.1 ML SPRAY NS PRN (09:51)
[2024-05-20] MEDS ORDERED: ONDANSETRON *ODT* 4 MG TABLET SL PRN (09:51)
[2024-05-20] MEDS ORDERED: IBUPROFEN 600 MG TABLET (FP) PO PRN (09:51)
[2024-05-20] MEDS ORDERED: DICYCLOMINE HCL 10 MG CAPSULE PO PRN (09:51)
[2024-05-20] MEDS ORDERED: BENZOCAINE/MENTHOL (CHLORASEPTIC ) LOZENGE MM PRN (09:51)
[2024-05-20] MEDS ORDERED: MAGNESIUM HYDROX 2400MG/30ML ORAL SUSPENSION 30 ML CUP PO PRN (09:51)
[2024-05-20] MEDS ORDERED: IBUPROFEN 400 MG TABLET (FP) PO PRN (09:51)
[2024-05-20] MEDS ORDERED: BISMUTH SUBSALICYLATE 524 MG/30 ML PO PRN (09:51)
[2024-05-20] MEDS ORDERED: POLYETHYLENE GLYCOL (HEALTHYLAX) 3350 17 GM PACKET PO PRN (09:51)
[2024-05-20] MEDS ORDERED: ACETAMINOPHEN 325 MG TABLET (FP) PO PRN (09:51)
[2024-05-20] MEDS ORDERED: LOPERAMIDE HCL 2 MG CAPSULE PO PRN (09:51)
[2024-05-20] MEDS ORDERED: MAG HYDROX/AL HYDROX/SIMETH 30 ML UNIT-DOSE CUP PO PRN (09:51)
[2024-05-20] MEDS ORDERED: BENZONATATE 200 MG CAPSULE PO PRN (09:51)
[2024-05-20] MEDS ORDERED: guaiFENesin 600 MG TABLET.ER (FP) PO PRN (09:51)
[2024-05-20] MEDS ORDERED: PRENATAL VITAMINS W/ FOLIC ACID TABLET (FP) PO ONE (10:45)
[2024-05-20] MEDS ORDERED: diazePAM 5 MG TABLET ONE (10:45)
[2024-05-20] MEDS: diazePAM 5 MG TABLET PO PRN (10:47)
[2024-05-20] MEDS: PRENATAL VITAMINS W/ FOLIC ACID TABLET (FP) PO SCH (10:48)
[2024-05-20] MEDS: diazePAM 5 MG TABLET PO SCH (12:00)
[2024-05-20] MEDS: MELATONIN 5 MG TABLETS PO SCH (22:41)
[2024-05-20] MEDS: THIAMINE 100 MG TABLET PO SCH (22:41)
[2024-05-20] MEDS: QUEtiapine FUMARATE 200 MG TABLET PO SCH (22:42)
[2024-05-20] MEDS: SILVER SULFADIAZINE 1% TOP CREAM 50 GM JAR TP SCH (22:53)
[2024-05-21] MEDS: METOPROLOL TARTRATE 25 MG TABLET (FP) PO SCH (10:05)
[2024-05-21 11:15] LABS: POTASSIUM 3.9 mmol/L (3.5-5.1)
[2024-05-21 11:17] LABS: MCH 27.1 pg (25.7-33.7); MCHC 32.6 g/dl (32.0-35.9); MEAN CELL VOLUME 82.9 fl (80-96); PLATELET COUNT 261 10^3/uL (134-434); RBC 4.82 M/mm3 (4.00-5.60); RDW 14.5 % (11.9-15.9); WHITE BLOOD COUNT 5.4 K/mm3 (4.0-10.0)
[2024-05-21 11:24] LABS: ALBUMIN 3.8 g/dl (3.4-5.0); BLOOD UREA NITROGEN 13.1 mg/dL (7-18)
[2024-05-21 11:25] LABS: CALCIUM 9.8 mg/dL (8.5-10.1)
[2024-05-21 11:26] LABS: BILIRUBIN,TOTAL 0.3 mg/dL (0.2-1); TOT PROT 7.4 g/dl (6.4-8.2)
[2024-05-22] MEDS: diazePAM 5 MG TABLET PO SCH (05:27)
[2024-05-22] MEDS ORDERED: MINERAL OIL/PETROLAT/WATER TOPICAL CREAM 113 GM JAR TP PRN (11:00)
[2024-05-22 15:36] LABS: HIV INTERPRETATION NEGATIVE (NEGATIVE)
[2024-05-23] MEDS: diazePAM 5 MG TABLET PO SCH (06:10)
[2024-05-23 14:13] LABS: URINE APPEARANCE CLEAR; URINE BILIRUBIN NEGATIVE (NEGATIVE); URINE COLOR YELLOW; URINE GLUCOSE (UA) NEGATIVE (NEGATIVE); URINE KETONE NEGATIVE (NEGATIVE); URINE LEUK ESTERASE NEGATIVE (NEGATIVE); URINE NITRITE NEGATIVE (NEGATIVE); URINE PROTEIN NEGATIVE (NEGATIVE); URINE UROBILINOGEN 0.2 mg/dL (0.2-1.0)
[2024-05-24] MEDS: diazePAM 5 MG TABLET PO ONE (06:04)
[2024-05-24] MEDS: METHOCARBAMOL 500 MG TABLET PO PRN (21:50)
[2024-05-25 12:54] VITALS: BP 149/99; PULSE 81; RESP 16; TEMP 97.3
== END 2024-05-25 12:48 | disposition other institution (70) | DRG 774 ==
LOC: YASAS 08:07 → Y6N 12:18
PROVIDERS: ADMIT Allergy & Immunology; ATTEND Surgery
PROC: HZ2ZZZZ Detoxification Services for Substance Abuse Treatment (ICD-10-PCS; principal; 2024-05-20)
DX: F10.230 Alcohol dependence with withdrawal, uncomplicated (principal); F14.20 Cocaine dependence, uncomplicated; F17.210 Nicotine dependence, cigarettes, uncomplicated; F10.282 Alcohol dependence with alcohol-induced sleep disorder; F10.280 Alcohol dependence with alcohol-induced anxiety disorder; F10.24 Alcohol dependence with alcohol-induced mood disorder; F31.9 Bipolar disorder, unspecified; I10 Essential (primary) hypertension; E78.5 Hyperlipidemia, unspecified; B18.2 Chronic viral hepatitis C; L97.821 Non-pressure chronic ulcer of other part of left lower leg limited to breakdown of skin; L03.114 Cellulitis of left upper limb
CPT/HCPCS: 36415; 80053; 80307; 81003; 85027; 86780; 87389; 93005; 93010

== ENCOUNTER 2024-05-25 12:54 | Inpatient (IN) | payer OTHER ==
[~2024-05-25 12:54] MED LIST: ACETAMINOPHEN 325 MG TABLET (FP) PO PRN; BENZOCAINE/MENTHOL (CHLORASEPTIC ) LOZENGE MM PRN; BENZONATATE 200 MG CAPSULE PO PRN; IBUPROFEN 400 MG TABLET (FP) PO PRN; IBUPROFEN 600 MG TABLET (FP) PO PRN; LOPERAMIDE HCL 2 MG CAPSULE PO PRN; MAG HYDROX/AL HYDROX/SIMETH 30 ML UNIT-DOSE CUP PO PRN; MAGNESIUM HYDROX 2400MG/30ML ORAL SUSPENSION 30 ML CUP PO PRN; NICOTINE POLACRILEX 2 MG GUM BUC PRN; NICOTINE POLACRILEX 2 MG LOZENGE BC PRN; POLYETHYLENE GLYCOL (HEALTHYLAX) 3350 17 GM PACKET PO PRN; guaiFENesin 600 MG TABLET.ER (FP) PO PRN
[2024-05-25] MEDS: QUEtiapine FUMARATE 200 MG TABLET PO SCH (21:10)
[2024-05-25] MEDS: MELATONIN 5 MG TABLETS PO SCH (21:10)
[2024-05-25] MEDS: THIAMINE 100 MG TABLET PO SCH (21:10)
[2024-05-26] MEDS: METOPROLOL TARTRATE 25 MG TABLET (FP) PO SCH (09:41)
[2024-05-26] MEDS: PRENATAL VITAMINS W/ FOLIC ACID TABLET (FP) PO SCH (09:41)
[2024-05-26] MEDS: SILVER SULFADIAZINE 1% TOP CREAM 50 GM JAR TP SCH (09:42)
[2024-05-26] MEDS ORDERED: SILVER SULFADIAZINE 1% TOP CREAM 400 GM JAR TP SCH (10:00)
[2024-05-26] MEDS: MINERAL OIL/PETROLAT/WATER TOPICAL CREAM 454 GM JAR TP PRN (21:08)
[2024-05-30] MEDS: VITAMINS A AND D TOPICAL OINTMENT TP PRN (07:29)
[2024-06-01] MEDS: hydrOXYzine PAMOATE 25 MG CAPSULE (FP) PO PRN (06:30)
[2024-06-04] MEDS: INSULIN ASPART SLIDING SCALE (NOVOLOG) 1 VIAL SQ SCH (16:30)
[2024-06-04] MEDS: DOXYCYCLINE HYCLATE 100 MG TABLET PO SCH (17:35)
[2024-06-04] MEDS: CLINDAMYCIN PHOSPHATE 1% TOPICAL GEL 30 GM TUBE TP SCH (21:06)
[2024-06-15 06:02] VITALS: RESP 16
[2024-06-16 06:43] VITALS: TEMP 97.3
[2024-06-16 09:37] VITALS: BP 131/73; PULSE 90
[2024-06-16] MEDS: NALOXONE (NYS OPIOID OVERDOSE PROGRAM) 4 MG/0.1 ML SPRAY NS SCH (09:37)
== END 2024-06-16 10:06 | disposition home or self-care (01) | DRG 772 ==
LOC: YASAS 12:54 → Y3W 12:55 → Y3NR 05-26 21:46 → Y3W 05-26 21:47
PROVIDERS: ADMIT Psychiatry & Neurology Pain Medicine; ATTEND Family Medicine Addiction Medicine
PROC: HZ42ZZZ Group Counseling for Substance Abuse Treatment, Cognitive-Behavioral (ICD-10-PCS; principal; 2024-05-25)
DX: F10.20 Alcohol dependence, uncomplicated (principal); F14.20 Cocaine dependence, uncomplicated; F10.282 Alcohol dependence with alcohol-induced sleep disorder; F10.280 Alcohol dependence with alcohol-induced anxiety disorder; F10.24 Alcohol dependence with alcohol-induced mood disorder; F31.9 Bipolar disorder, unspecified; F90.9 Attention-deficit hyperactivity disorder, unspecified type; E78.5 Hyperlipidemia, unspecified; I10 Essential (primary) hypertension; R73.03 Prediabetes; Z87.891 Personal history of nicotine dependence; Z86.19 Personal history of other infectious and parasitic diseases
CPT/HCPCS: 82962

== ENCOUNTER 2024-07-24 08:10 | Inpatient (IN) | payer OTHER ==
[2024-07-24 08:19] VITALS: BMI 33.9
[2024-07-24] MEDS ORDERED: BENZOCAINE/MENTHOL (CHLORASEPTIC ) LOZENGE MM PRN (08:50)
[2024-07-24] MEDS ORDERED: BISMUTH SUBSALICYLATE 262 MG/15 ML BTL PO PRN (08:50)
[2024-07-24] MEDS ORDERED: NICOTINE POLACRILEX 2 MG LOZENGE BC PRN (08:50)
[2024-07-24] MEDS ORDERED: LOPERAMIDE HCL 2 MG CAPSULE PO PRN (08:50)
[2024-07-24] MEDS ORDERED: MAGNESIUM HYDROX 2400MG/30ML ORAL SUSPENSION 30 ML CUP PO PRN (08:50)
[2024-07-24] MEDS ORDERED: MAG HYDROX/AL HYDROX/SIMETH 30 ML UNIT-DOSE CUP PO PRN (08:50)
[2024-07-24] MEDS ORDERED: POLYETHYLENE GLYCOL (HEALTHYLAX) 3350 17 GM PACKET PO PRN (08:50)
[2024-07-24] MEDS ORDERED: ONDANSETRON *ODT* 4 MG TABLET SL PRN (08:50)
[2024-07-24] MEDS ORDERED: BENZONATATE 200 MG CAPSULE PO PRN (08:50)
[2024-07-24] MEDS ORDERED: IBUPROFEN 400 MG TABLET (FP) PO PRN (08:50)
[2024-07-24] MEDS ORDERED: NALOXONE (NARCAN) HCL 4 MG/0.1 ML SPRAY NS PRN (08:50)
[2024-07-24] MEDS ORDERED: IBUPROFEN 600 MG TABLET (FP) PO PRN (08:50)
[2024-07-24] MEDS ORDERED: hydrOXYzine PAMOATE 25 MG CAPSULE (FP) PO PRN (08:50)
[2024-07-24] MEDS ORDERED: DICYCLOMINE HCL 10 MG CAPSULE PO PRN (08:50)
[2024-07-24] MEDS ORDERED: guaiFENesin 600 MG TABLET.ER (FP) PO PRN (08:50)
[2024-07-24] MEDS: PRENATAL VITAMINS W/ FOLIC ACID TABLET (FP) PO SCH (10:43)
[2024-07-24] MEDS: THIAMINE 100 MG TABLET PO SCH (22:03)
[2024-07-24] MEDS: MELATONIN 5 MG TABLETS PO SCH (22:26)
[2024-07-24] MEDS: QUEtiapine FUMARATE 200 MG TABLET PO ONE (22:43)
[2024-07-25] MEDS ORDERED: chlordiazePOXIDE HCL 25 MG CAPSULE PO PRN (08:40)
[2024-07-25] MEDS: NICOTINE POLACRILEX 2 MG GUM BUC PRN (09:52)
[2024-07-25] MEDS: QUEtiapine FUMARATE 200 MG TABLET PO SCH (09:52)
[2024-07-25] MEDS: chlordiazePOXIDE HCL 25 MG CAPSULE PO SCH (10:13)
[2024-07-25 11:11] LABS: POTASSIUM 4.2 mmol/L (3.5-5.1)
[2024-07-25 11:12] LABS: HEMATOCRIT 38.2 % (35.4-49); HEMOGLOBIN 12.6 GM/dL (11.7-16.9); MCH 26.8 pg (25.7-33.7); MEAN CELL VOLUME 81.1 fl (80-96); MEAN PLT VOLUME 9.4 fl (7.5-11.1); PLATELET COUNT 242 10^3/uL (134-434); RBC 4.71 M/mm3 (4.00-5.60); RDW 15.4 % (11.9-15.9); WHITE BLOOD COUNT 5.3 K/mm3 (4.0-10.0)
[2024-07-25 11:20] LABS: ALBUMIN 3.3 g/dl (3.4-5.0); CALCIUM 9.1 mg/dL (8.5-10.1)
[2024-07-25 11:24] LABS: CREATININE 0.8 mg/dL (0.55-1.3)
[2024-07-25 11:25] LABS: BILIRUBIN,TOTAL 0.3 mg/dL (0.2-1); TOT PROT 6.8 g/dl (6.4-8.2)
[2024-07-25] MEDS: SILVER SULFADIAZINE 1% TOP CREAM 50 GM JAR TP SCH (13:07)
[2024-07-25] MEDS: FOLIC ACID 1 MG TABLET (FP) PO SCH (13:07)
[2024-07-25] MEDS: METHOCARBAMOL 500 MG TABLET PO PRN (22:20)
[2024-07-26] MEDS: SULFAMETHOXAZOLE/TRIMETHOPRIM 800MG/160MG D.S. TABLET PO SCH (22:23)
[2024-07-27] MEDS: chlordiazePOXIDE HCL 25 MG CAPSULE PO SCH (05:38)
[2024-07-27] MEDS: METOPROLOL TARTRATE 25 MG TABLET (FP) PO SCH (12:06)
[2024-07-28] MEDS ORDERED: chlordiazePOXIDE HCL 10 MG CAPSULE PO PRN
[2024-07-28] MEDS: chlordiazePOXIDE HCL 10 MG CAPSULE PO SCH (05:26)
[2024-07-28] MEDS: ACETAMINOPHEN 325 MG TABLET (FP) PO PRN (17:08)
[2024-07-29] MEDS: chlordiazePOXIDE HCL 10 MG CAPSULE PO SCH (05:30)
[2024-07-29] MEDS: VITAMINS A AND D TOPICAL OINTMENT TP SCH (13:00)
[2024-07-30] MEDS: chlordiazePOXIDE HCL 10 MG CAPSULE PO ONE (05:46)
[2024-07-30 06:17] VITALS: TEMP 97.8
[2024-07-30 09:32] VITALS: BP 119/80; PULSE 103; RESP 18
== END 2024-07-30 09:25 | disposition other institution (70) | DRG 774 ==
LOC: YASAS 08:10 → Y3N 11:41
PROVIDERS: ADMIT Allergy & Immunology; ATTEND Allergy & Immunology
PROC: HZ2ZZZZ Detoxification Services for Substance Abuse Treatment (ICD-10-PCS; principal; 2024-07-24)
DX: F10.230 Alcohol dependence with withdrawal, uncomplicated (principal); F14.20 Cocaine dependence, uncomplicated; F20.9 Schizophrenia, unspecified; F31.9 Bipolar disorder, unspecified; F90.9 Attention-deficit hyperactivity disorder, unspecified type; F10.280 Alcohol dependence with alcohol-induced anxiety disorder; F10.282 Alcohol dependence with alcohol-induced sleep disorder; F10.24 Alcohol dependence with alcohol-induced mood disorder; E78.5 Hyperlipidemia, unspecified; I10 Essential (primary) hypertension; B18.2 Chronic viral hepatitis C; L02.421 Furuncle of right axilla; R73.03 Prediabetes; Z86.19 Personal history of other infectious and parasitic diseases
CPT/HCPCS: 36415; 71046-TC-FY; 80053; 80305; 80307; 85027

== ENCOUNTER 2024-11-17 11:00 | Inpatient (IN) | payer OTHER ==
[2024-11-17 11:27] VITALS: BMI 30.6
[2024-11-17] MEDS ORDERED: METHOCARBAMOL 500 MG TABLET PO PRN (12:04)
[2024-11-17] MEDS ORDERED: BENZOCAINE/MENTHOL (CHLORASEPTIC ) LOZENGE MM PRN (12:04)
[2024-11-17] MEDS ORDERED: MAG HYDROX/AL HYDROX/SIMETH 30 ML UNIT-DOSE CUP PO PRN (12:04)
[2024-11-17] MEDS ORDERED: LOPERAMIDE HCL 2 MG CAPSULE PO PRN (12:04)
[2024-11-17] MEDS ORDERED: IBUPROFEN 600 MG TABLET (FP) PO PRN (12:04)
[2024-11-17] MEDS ORDERED: ONDANSETRON *ODT* 4 MG TABLET SL PRN (12:04)
[2024-11-17] MEDS ORDERED: hydrOXYzine PAMOATE 25 MG CAPSULE (FP) PO PRN (12:04)
[2024-11-17] MEDS ORDERED: guaiFENesin 600 MG TABLET.ER (FP) PO PRN (12:04)
[2024-11-17] MEDS ORDERED: ACETAMINOPHEN 325 MG TABLET (FP) PO PRN (12:04)
[2024-11-17] MEDS ORDERED: DICYCLOMINE HCL 10 MG CAPSULE PO PRN (12:04)
[2024-11-17] MEDS ORDERED: POLYETHYLENE GLYCOL (HEALTHYLAX) 3350 17 GM PACKET PO PRN (12:04)
[2024-11-17] MEDS ORDERED: MAGNESIUM HYDROX 2400MG/30ML ORAL SUSPENSION 30 ML CUP PO PRN (12:04)
[2024-11-17] MEDS ORDERED: BISMUTH SUBSALICYLATE 262 MG/15 ML BTL PO PRN (12:04)
[2024-11-17] MEDS ORDERED: BENZONATATE 200 MG CAPSULE PO PRN (12:04)
[2024-11-17] MEDS ORDERED: NALOXONE (NARCAN) HCL 4 MG/0.1 ML SPRAY NS PRN (12:04)
[2024-11-17] MEDS ORDERED: IBUPROFEN 400 MG TABLET (FP) PO PRN (12:04)
[2024-11-17] MEDS ORDERED: chlordiazePOXIDE HCL 25 MG CAPSULE PO PRN (15:02)
[2024-11-17] MEDS: chlordiazePOXIDE HCL 25 MG CAPSULE PO SCH (17:14)
[2024-11-17] MEDS: MELATONIN 5 MG TABLETS PO SCH (22:14)
[2024-11-17] MEDS: THIAMINE 100 MG TABLET PO SCH (22:14)
[2024-11-18] MEDS ORDERED: CEPHALEXIN MONOHYDRATE 500 MG CAPSULE (UD) PO SCH (10:00)
[2024-11-18] MEDS: PRENATAL VITAMINS W/ FOLIC ACID TABLET (FP) PO SCH (10:18)
[2024-11-18] MEDS: QUEtiapine FUMARATE 100 MG TABLET (FP) PO SCH (10:18)
[2024-11-18] MEDS: DOXYCYCLINE HYCLATE 100 MG TABLET PO SCH (10:21)
[2024-11-18] MEDS: DOLUTEGRAVIR SODIUM 50 MG TABLET (NON-FORMULARY) PO SCH (10:46)
[2024-11-18] MEDS: EMTRICITABINE 200MG/TENOFOVIR 300MG PO SCH (10:46)
[2024-11-18] MEDS: MINERAL OIL/PETROLAT/WATER TOPICAL CREAM 113 GM JAR TP SCH (10:47)
[2024-11-18] MEDS: CLOTRIMAZOLE 1% CREAM TP SCH (10:48)
[2024-11-18 10:59] LABS: HEMATOCRIT 38.9 % (40.1-51.0); HEMOGLOBIN 12.7 g/dL (13.7-17.5); MCHC 32.6 g/dl (32.3-36.5); MEAN CELL VOLUME 81.2 fl (79.0-92.2); PLATELET COUNT 258 x10^3/uL (163-337); RDW 16.4 % (12.2-16.1)
[2024-11-18 11:05] LABS: POTASSIUM 3.8 mmol/L (3.5-5.1)
[2024-11-18 11:07] LABS: CALCIUM 10.2 mg/dL (8.5-10.1)
[2024-11-18 11:08] LABS: ALBUMIN 3.8 g/dl (3.4-5.0); BLOOD UREA NITROGEN 9.8 mg/dL (7-18)
[2024-11-18 11:11] LABS: CREATININE 1.1 mg/dL (0.55-1.3)
[2024-11-18 11:12] LABS: BILIRUBIN,TOTAL 0.4 mg/dL (0.2-1)
[2024-11-18 11:13] LABS: TOT PROT 7.6 g/dl (6.4-8.2)
[2024-11-18] MEDS: QUEtiapine FUMARATE 200 MG TABLET PO SCH (22:17)
[2024-11-19] MEDS: chlordiazePOXIDE HCL 25 MG CAPSULE PO SCH (06:15)
[2024-11-19] MEDS: VITAMINS A AND D TOPICAL OINTMENT TP SCH (12:50)
[2024-11-20] MEDS ORDERED: chlordiazePOXIDE HCL 10 MG CAPSULE PO PRN
[2024-11-20] MEDS: chlordiazePOXIDE HCL 10 MG CAPSULE PO SCH (05:26)
[2024-11-20] MEDS: QUEtiapine FUMARATE 200 MG TABLET PO SCH (22:10)
[2024-11-21] MEDS: chlordiazePOXIDE HCL 10 MG CAPSULE PO SCH (05:32)
[2024-11-22] MEDS: chlordiazePOXIDE HCL 10 MG CAPSULE PO ONE (05:26)
[2024-11-22 09:03] VITALS: BP 124/71; PULSE 73; RESP 18; TEMP 97.3
== END 2024-11-22 12:47 | disposition other institution (70) | DRG 774 ==
LOC: YASAS 11:00 → Y3N 13:07
PROVIDERS: ADMIT Allergy & Immunology; ATTEND Allergy & Immunology
PROC: HZ2ZZZZ Detoxification Services for Substance Abuse Treatment (ICD-10-PCS; principal; 2024-11-17)
DX: F10.230 Alcohol dependence with withdrawal, uncomplicated (principal); F14.20 Cocaine dependence, uncomplicated; F31.9 Bipolar disorder, unspecified; Z21 Asymptomatic human immunodeficiency virus [HIV] infection status; E78.5 Hyperlipidemia, unspecified; Z87.891 Personal history of nicotine dependence; Z86.19 Personal history of other infectious and parasitic diseases; Z79.899 Other long term (current) drug therapy
CPT/HCPCS: 36415; 80053; 80307; 85027; 86780; 87811

== ENCOUNTER 2025-02-14 09:39 | Inpatient (IN) | payer OTHER ==
[2025-02-14 10:24] VITALS: BMI 28.5
[2025-02-14] MEDS ORDERED: NICOTINE POLACRILEX 2 MG GUM BUC PRN (10:31)
[2025-02-14] MEDS ORDERED: BISMUTH SUBSALICYLATE 524 MG/30 ML PO PRN (10:31)
[2025-02-14] MEDS ORDERED: IBUPROFEN 400 MG TABLET (FP) PO PRN (10:31)
[2025-02-14] MEDS ORDERED: BENZOCAINE/MENTHOL (CHLORASEPTIC ) LOZENGE MM PRN (10:31)
[2025-02-14] MEDS ORDERED: guaiFENesin 600 MG TABLET.ER (FP) PO PRN (10:31)
[2025-02-14] MEDS ORDERED: ONDANSETRON *ODT* 4 MG TABLET SL PRN (10:31)
[2025-02-14] MEDS ORDERED: IBUPROFEN 600 MG TABLET (FP) PO PRN (10:31)
[2025-02-14] MEDS ORDERED: LOPERAMIDE HCL 2 MG CAPSULE PO PRN (10:31)
[2025-02-14] MEDS ORDERED: DICYCLOMINE HCL 10 MG CAPSULE PO PRN (10:31)
[2025-02-14] MEDS ORDERED: MAG HYDROX/AL HYDROX/SIMETH 30 ML UNIT-DOSE CUP PO PRN (10:31)
[2025-02-14] MEDS ORDERED: POLYETHYLENE GLYCOL (HEALTHYLAX) 3350 17 GM PACKET PO PRN (10:31)
[2025-02-14] MEDS ORDERED: BENZONATATE 200 MG CAPSULE PO PRN (10:31)
[2025-02-14] MEDS ORDERED: NICOTINE POLACRILEX 2 MG LOZENGE BC PRN (10:31)
[2025-02-14] MEDS ORDERED: ACETAMINOPHEN 325 MG TABLET (FP) PO PRN (10:31)
[2025-02-14] MEDS ORDERED: MAGNESIUM HYDROX 2400MG/30ML ORAL SUSPENSION 30 ML CUP PO PRN (10:31)
[2025-02-14] MEDS ORDERED: NALOXONE (NARCAN) HCL 4 MG/0.1 ML SPRAY NS PRN (10:31)
[2025-02-14 16:24] LABS: URINE APPEARANCE CLEAR; URINE BILIRUBIN NEGATIVE (NEGATIVE); URINE COLOR YELLOW; URINE GLUCOSE (UA) NEGATIVE (NEGATIVE); URINE KETONE NEGATIVE (NEGATIVE); URINE LEUK ESTERASE NEGATIVE (NEGATIVE); URINE NITRITE NEGATIVE (NEGATIVE); URINE PROTEIN NEGATIVE (NEGATIVE); URINE UROBILINOGEN 0.2 mg/dL (0.2-1.0)
[2025-02-14] MEDS: hydrOXYzine PAMOATE 25 MG CAPSULE (FP) PO PRN (17:46)
[2025-02-14] MEDS: METHOCARBAMOL 500 MG TABLET PO PRN (17:46)
[2025-02-14] MEDS: MELATONIN 5 MG TABLETS PO SCH (21:43)
[2025-02-14] MEDS: THIAMINE 100 MG TABLET PO SCH (21:43)
[2025-02-15] MEDS: PRENATAL VITAMINS W/ FOLIC ACID TABLET (FP) PO SCH (10:00)
[2025-02-15] MEDS: FOLIC ACID 1 MG TABLET (FP) PO SCH (11:17)
[2025-02-15] MEDS: CLOTRIMAZOLE/BETAMET DIPROP 15 GM TUBE TP SCH (11:17)
[2025-02-15] MEDS: VITAMINS A AND D TOPICAL OINTMENT TP SCH (11:18)
[2025-02-15] MEDS: QUEtiapine FUMARATE 100 MG TABLET (FP) PO SCH (11:21)
[2025-02-15 11:37] LABS: MCHC 32.0 g/dl (32.3-36.5); MEAN CELL VOLUME 83.3 fl (79.0-92.2); MEAN PLT VOLUME 11.7 fl (9.4-12.4); RDW 14.3 % (12.2-16.1)
[2025-02-15 13:06] LABS: GLUCOSE,RANDOM 84 mg/dL (74-106); TOT PROT 7.5 g/dl (6.4-8.2)
[2025-02-15 13:07] LABS: CO2 29 mmol/L (21-32)
[2025-02-15 13:09] LABS: ALK PHOS 93 U/L (40-150)
[2025-02-15 13:12] LABS: CREATININE 0.82 mg/dL (0.55-1.3); SGOT/AST 17 U/L (5-34); SGPT/ALT 16 U/L (0-55)
[2025-02-15] MEDS: NITROFURANTOIN MACROCRYSTAL 50 MG CAPSULE (FP) PO SCH (14:16)
[2025-02-15 19:33] LABS: HIV INTERPRETATION NEGATIVE (NEGATIVE)
[2025-02-17] MEDS: CHOLECALCIFEROL (VIT D3) 1,000 UNIT (25 MCG) TABLET PO SCH (10:26)
[2025-02-18] MEDS ORDERED: diphenhydrAMINE HCL 12.5 MG/5 ML UNIT-DOSE CUPS PO ONE (17:09)
[2025-02-18] MEDS ORDERED: diphenhydrAMINE HCL 25 MG CAPSULE (FP) PO ONE (17:15)
[2025-02-18] MEDS: diphenhydrAMINE HCL 12.5 MG/5 ML UNIT-DOSE CUPS PO ONE (18:46)
[2025-02-19 09:51] VITALS: BP 137/84; PULSE 102; RESP 16; TEMP 98.9
== END 2025-02-19 11:20 | disposition other institution (70) | DRG 774 ==
LOC: YASAS 09:39 → Y6N 11:44
PROVIDERS: ADMIT Neuromusculoskeletal Medicine & OMM; ATTEND Counselor Addiction (Substance Use Disorder)
PROC: HZ2ZZZZ Detoxification Services for Substance Abuse Treatment (ICD-10-PCS; principal; 2025-02-14)
DX: F10.230 Alcohol dependence with withdrawal, uncomplicated (principal); F14.20 Cocaine dependence, uncomplicated; F17.210 Nicotine dependence, cigarettes, uncomplicated; F31.9 Bipolar disorder, unspecified; I10 Essential (primary) hypertension; B18.2 Chronic viral hepatitis C; B35.3 Tinea pedis; R30.0 Dysuria; Z88.0 Allergy status to penicillin
CPT/HCPCS: 36415; 80053; 80305; 80307; 81003; 85027; 86780; 86803; 87389; 87522